=== PATIENT | male | born 1940 | race Caucasian/White ===

== ENCOUNTER 2018-02-06 16:30 | Inpatient (IN) | payer OTHER ==
--- NOTE | 2018-02-06 16:59 | PDOC ---
History of Present Illness - General Chief Complaint: Urinary Problem Stated Complaint: WEAKNESS, URINARY SYMPTOMS Time Seen by Provider: 02/06/18 16:58 Past History - Past Medical History Allergies/Adverse Reactions: Allergies Allergy/AdvReac Type Severity Reaction Status Date / Time No Known Drug Allergies Allergy Verified 02/06/18 16:31 Home Medications: Ambulatory Orders Cyanocobalamin (Vitamin B-12) [B-12] 1,000 mcg PO DAILY tablet 05/21/16 Multivitamin [Daily Vitamin Formula] 1 each PO DAILY tablet 05/21/16 Meclizine HCl 25 mg PO PRN PRN MDD 4 05/25/16 Ascorbic Acid [Vitamin C -] 500 mg PO BID tablet 06/01/16 Sennosides/Docusate Sodium [Pericolace -] 2 tablet PO BID tablet 06/01/16 Aspirin [Aspirin Ec] 81 mg PO DAILY 12/31/16 Nifedipine [Procardia Xl] 30 mg PO DAILY 12/31/16 Clopidogrel Bisulfate [Plavix] 75 mg PO DAILY 02/06/18 Diclofenac Sodium/Misoprostol [Diclofenac-Misoprost 75-0.2 Tb] 1 each PO BID Metoprolol Succinate 25 mg PO BID 02/06/18 Anemia: No Asthma: No Cancer: No Cardiac Disorders: No CVA: No COPD: No CHF: No Dementia: No Diabetes: No GI Disorders: Yes (RECTAL BLEEDING 2012) Disorders: Yes (multiple stones) HTN: Yes Hypercholesterolemia: Yes Kidney Stones: Yes Liver Disease: No Seizures: No Thyroid Disease: No - Surgical History Abdominal Surgery: Yes (HERNIA REPAIR 25 YRS AGO) Appendectomy: No Cardiac Surgery: Yes (2016 X2 STENT) Cholecystectomy: No Lung Surgery: No Neurologic Surgery: No Orthopedic Surgery: Yes (KYPHOPLASTY) - Suicide/Smoking/Psychosocial Hx Smoking Status: No Smoking History: Never smoked Have you smoked in the past 12 months: No Number of Cigarettes Smoked Daily: 0 Information on smoking cessation initiated: No Hx Alcohol Use: No Drug/Substance Use Hx: No Substance Use Type: None Hx Substance Use Treatment: No *Physical Exam - Vital Signs Last Vital Signs Temp Pulse Resp BP Pulse Ox 99.1 F 103 H 20 153/86 97 02/06/18 16:31 02/06/18 16:31 02/06/18 16:31 02/06/18 16:31 02/06/18 16:31
--- NOTE | 2018-02-06 17:25 | PDOC ---
History of Present Illness - General History Source: Patient, Spouse Exam Limitations: No Limitations - History of Present Illness Initial Comments: 02/06/18 18:28 The patient is a 77-year-old male with significant past medical history of BPH, hypertension, hyperlipidemia, hypercholesterolemia, kidney stones, urosepsis, who presents to the emergency department today BIBA complaining of 1 day of urinary changes and general weakness. The patient reports that since 9:00 pm last night, he felt feverish, fatigued, nauseous, and diaphoretic. He states that he woke up every hour last night with the urge to urinate and was not able to. As per the patient's , there is a new pelvic odor as well. The patient adds that with positional change, he experiences a sharp, non-radiating, right- sided back pain that is 3/10 in severity and alleviated by laying supine. Today the patient called his PCP who recommended ruling out UTI and prescribed Cipro ( first dose taken this morning). Denies burning with urination, hematuria. Denies vomiting, diarrhea, constipation. Denies headache, dizziness. Denies shortness of breath, back pain, abdominal pain, chest pain. Allergies: NKDA Social history: none reported Surgical history: hernia repair, nephrectomy, kyphoplasty, partial right spine, stents x2 Family history: none reported PCP: Dr. Lange <Delphine Wick - Last Filed: 02/06/18 19:33> <Denilson Michaud - Last Filed: 02/07/18 14:14> - General Chief Complaint: Urinary Problem Stated Complaint: WEAKNESS, URINARY SYMPTOMS Time Seen by Provider: 02/06/18 16:58 Past History <Delphine Wick - Last Filed: 02/06/18 19:33> - Past Medical History Anemia: No Asthma: No Cancer: No Cardiac Disorders: No CVA: No COPD: No CHF: No Dementia: No Diabetes: No GI Disorders: Yes (RECTAL BLEEDING 2012) Disorders: Yes (multiple stones) HTN: Yes Hypercholesterolemia: Yes Kidney Stones: Yes Liver Disease: No Seizures: No Thyroid Disease: No - Surgical History Abdominal Surgery: Yes (HERNIA REPAIR 25 YRS AGO) Appendectomy: No Cardiac Surgery: Yes (2017 X2 STENT) Cholecystectomy: No Lung Surgery: No Neurologic Surgery: No Orthopedic Surgery: Yes (KYPHOPLASTY) - Suicide/Smoking/Psychosocial Hx Smoking Status: No Smoking History: Never smoked Have you smoked in the past 12 months: No Number of Cigarettes Smoked Daily: 0 Information on smoking cessation initiated: No Hx Alcohol Use: No Drug/Substance Use Hx: No Substance Use Type: None Hx Substance Use Treatment: No <Denilson Michaud - Last Filed: 02/07/18 14:14> - Past Medical History Allergies/Adverse Reactions: Allergies Allergy/AdvReac Type Severity Reaction Status Date / Time No Known Drug Allergies Allergy Verified 02/06/18 16:31 Home Medications: Ambulatory Orders Cyanocobalamin (Vitamin B-12) [B-12] 1,000 mcg PO DAILY tablet 05/21/16 Multivitamin [Daily Vitamin Formula] 1 each PO DAILY tablet 05/21/16 Meclizine HCl 25 mg PO PRN PRN MDD 4 05/25/16 Ascorbic Acid [Vitamin C -] 500 mg PO BID tablet 06/01/16 Sennosides/Docusate Sodium [Pericolace -] 2 tablet PO BID tablet 06/01/16 Aspirin [Aspirin Ec] 81 mg PO DAILY 12/31/16 Nifedipine [Procardia Xl] 30 mg PO DAILY 12/31/16 Clopidogrel Bisulfate [Plavix] 75 mg PO DAILY 02/06/18 Diclofenac Sodium/Misoprostol [Diclofenac-Misoprost 75-0.2 Tb] 1 each PO BID Metoprolol Succinate 25 mg PO BID 02/06/18 Review of Systems - Review of Systems Able to Perform ROS?: Yes Comments:: 02/06/18 18:45 ROS: A complete review of 10 out of 10 review of systems is taken and is negative apart from what is previously mentioned below and in the HPI. <Delphine Wick - Last Filed: 02/06/18 19:33> *Physical Exam - Vital Signs Last Vital Signs Temp Pulse Resp BP Pulse Ox 99.1 F 103 H 20 153/86 97 02/06/18 16:31 02/06/18 16:31 02/06/18 16:31 02/06/18 16:31 02/06/18 16:31 - Physical Exam Comments: 02/06/18 17:42 Vitals: Triage vital signs reviewed General Appearance: No acute distress, well nourished, well developed Head: Atraumatic Neck: Supple. No nuchal rigidity Chest Wall: Nontender Cardiac: Regular rate and rhythm, no murmurs, no rubs, no gallops Lungs: Clear to auscultation bilateral, good air movement bilaterally Abdomen: Soft, nondistended, normal bowel sounds, nontender to palpation. No CVA tenderness. Rectal: Exam deferred Extremities: Full range of motion to all extremities, no cyanosis, clubbing, or edema Skin: Warm and dry, no rashes or lesions, no rash, no petechiae Psych: Normal mood, normal affect <Delphine Wick - Last Filed: 02/06/18 19:33> - Vital Signs Last Vital Signs Temp Pulse Resp BP Pulse Ox 99.1 F 103 H 20 153/86 97 02/06/18 16:31 02/06/18 16:31 02/06/18 16:31 02/06/18 16:31 02/06/18 16:31 <Denilson Michaud - Last Filed: 02/07/18 14:14> ED Treatment Course - LABORATORY CBC & Chemistry Diagram: 02/06/18 17:40 02/06/18 17:40 <Delphien Wick - Last Filed: 02/06/18 19:33> - LABORATORY CBC & Chemistry Diagram: 02/07/18 08:00 02/07/18 08:00 <Denilson Michaud - Last Filed: 02/07/18 14:14> Medical Decision Making - Medical Decision Making 02/06/18 17:44 Plan: -UA <Delphine Wick - Last Filed: 02/06/18 19:33> - Medical Decision Making The patient is a 77-year-old male with significant past medical history of BPH, hypertension, hyperlipidemia, kidney stones, urosepsis, who presents to the emergency department today complaining of 1 day of urinary changes and general weakness. The patient reports that since 9:00 pm last night, he felt feverish, fatigued, nauseous, and diaphoretic. He states that he woke up every hour last night with the urge to urinate and was not able to. As per the patient's , there is a new pelvic odor as well. The patient adds that with positional change , he experiences a sharp, non-radiating, right-sided back pain that is 3/10 in severity and alleviated by laying supine. Today the patient called his PCP who recommended ruling out UTI and prescribed Cipro (first dose taken this morning) . In the emergency department patient noted to have fever slight tachycardia but normotensive. Lactic acid normal. At this point history examination most consistent with UTI A CAT scan was performed to rule out infected stone there is no obstructing stone on CT patient does have bilateral hydronephrosis At this point patient has been ordered for broad-spectrum IV antibiotic coverage , catherization will be performed for his urine sample. He will be admitted to the hospitalist for likely urosepsis Urology has been consult. <Denilson Michaud - Last Filed: 02/07/18 14:14> *DC/Admit/Observation/Transfer - Attestations Scribe Attestion: 02/06/18 17:44 Documentation prepared by Delphine Wick, acting as medical laboratory technician for Denilson Michaud MD. <Delphine Wick - Last Filed: 02/06/18 19:33> - Discharge Dispostion Decision to Admit order: Yes <Denilson Michaud - Last Filed: 02/07/18 14:14> Diagnosis at time of Disposition: Sepsis, UTI (urinary tract infection) Fever Qualifiers: Fever type: unspecified Qualified Code(s): R50.9 - Fever, unspecified - Discharge Dispostion Condition at time of disposition: Stable
[2018-02-06] MEDS ORDERED: SODIUM CHLORIDE 0.9% 1000 ML INFUS.BAG IV ONE (17:31)
[2018-02-06] MEDS ORDERED: ACETAMINOPHEN 1000 MG/100 ML VIAL (NON FORMULARY) IVPB ONE (17:50)
[2018-02-06 17:56] LABS: HEMATOCRIT 43.7 % (35.4-49); HEMOGLOBIN 14.6 GM/dl (11.7-16.9); MCH 30.6 pg (25.7-33.7); MCHC 33.3 g/dl (32.0-35.9); MEAN CELL VOLUME 91.8 fl (80-96); MEAN PLT VOLUME 8.3 fl (7.5-11.1); PLATELET COUNT 235 K/MM3 (134-434); RBC 4.76 M/mm3 (4.00-5.60); RDW 13.1 % (11.9-15.9); WHITE BLOOD COUNT 23.3 K/mm3 (4.0-10.8)
[2018-02-06] MEDS ORDERED: PIPERACILLIN/TAZOB 3.375 GM 3.375 GM in DEXTROSE 5%-WATER - 50 ML IVPB ONE (18:09)
[2018-02-06 18:14] LABS: ALBUMIN 3.8 g/dl (3.5-5.0); ALK PHOS 94 U/L (32-92); ANION GAP 7 (8-16); BLOOD UREA NITROGEN 27 mg/dl (7-18); CALCIUM 9.1 mg/dl (8.4-10.2); CHLORIDE 109 mmol/L (98-107); CO2 23 mmol/L (22-28); CREATININE 1.4 mg/dl (0.6-1.3); GLUCOSE,RANDOM 122 mg/dl (74-106); POTASSIUM 4.2 mmol/L (3.5-5.1); SGOT/AST 21 U/L (10-42); SGPT/ALT 18 U/L (10-40); SODIUM 139 mmol/L (136-145); TOT PROT 7.2 g/dl (6.4-8.3)
[2018-02-06] MEDS ORDERED: ACETAMINOPHEN INJECTION 100 ML IVPB ONE (18:21)
[2018-02-06] MEDS ORDERED: PIPERACILLIN/TAZOBACTAM 3.375 GM VIAL IVPB ONE (18:21)
[2018-02-06 18:42] LABS: PROTHROMBIN TIME (PATIENT) 14.2 SEC (10.2-13.0)
[2018-02-06 18:43] LABS: ACTIVATED PTT 28.9 SECONDS (25.2-36.5); INR 1.27 (0.82-1.09)
[2018-02-06 19:10] LABS: PLATELET ESTIMATE ADEQUATE
[2018-02-06 19:38] LABS: PH,URINE 5.5 (4.5-8); URINE BILIRUBIN Negative (NEGATIVE); URINE COLOR Yellow; URINE GLUCOSE (UA) Negative (NEGATIVE); URINE KETONE 1+ (NEGATIVE); URINE NITRITE Negative (NEGATIVE); URINE UROBILINOGEN 0.2 (0.2-1.0)
[2018-02-06 19:40] LABS: URINE APPEARANCE CLOUDY; URINE LEUK ESTERASE 3+ (NEGATIVE); URINE PROTEIN 2+ (NEGATIVE)
--- NOTE | 2018-02-06 19:46 | PDOC ---
*Physical Exam - Vital Signs Last Vital Signs Temp Pulse Resp BP Pulse Ox 99.2 F 100 H 18 146/82 99 02/06/18 19:23 02/06/18 19:23 02/06/18 19:23 02/06/18 19:23 02/06/18 19:23 ED Treatment Course - LABORATORY CBC & Chemistry Diagram: 02/06/18 17:40 02/06/18 17:40 - ADDITIONAL ORDERS Additional order review: Laboratory Results 02/06/18 02/06/18 02/06/18 19:15 17:40 17:40 PT with INR INR PTT (Actin FS) Sodium Potassium Chloride Carbon Dioxide Anion Gap BUN Creatinine Creat Clearance w eGFR Random Glucose Lactic Acid 1.7 Calcium Total Bilirubin AST ALT Alkaline Phosphatase Troponin I < 0.03 Total Protein Albumin Urine Color Yellow Urine Appearance Cloudy Urine pH 5.5 Ur Specific [place] 1.020 Urine Protein 2+ H Urine Glucose (UA) Negative Urine Ketones 1+ H Urine Blood 2+ H Urine Nitrite Negative Urine Bilirubin Negative Urine Urobilinogen 0.2 Ur Leukocyte Esterase 3+ H 02/06/18 02/06/18 17:40 17:40 PT with INR 14.2 H INR 1.27 H PTT (Actin FS) 28.9 Sodium 139 Potassium 4.2 Chloride 109 H Carbon Dioxide 23 Anion Gap 7 L BUN 27 H Creatinine 1.4 H Creat Clearance w eGFR 49.27 Random Glucose 122 H D Lactic Acid Calcium 9.1 Total Bilirubin 1.0 AST 21 ALT 18 Alkaline Phosphatase 94 H Troponin I Total Protein 7.2 Albumin 3.8 Urine Color Urine Appearance Urine pH Ur Specific [place] Urine Protein Urine Glucose (UA) Urine Ketones Urine Blood Urine Nitrite Urine Bilirubin Urine Urobilinogen Ur Leukocyte Esterase 02/06/18 17:40 RBC 4.76 MCV 91.8 MCHC 33.3 RDW 13.1 MPV 8.3 D Neutrophils % No Result Required. Lymphocytes % No Result Required. - Medications Given in the ED: ED Medications Discontinued Medications Generic Name Dose Route Start Last Admin Trade Name Freq PRN Reason Stop Dose Admin Acetaminophen 1,000 mg 02/06/18 17:50 02/06/18 18:23 Ofirmev Injection - IVPB 02/06/18 17:51 1,000 mg ONCE ONE Administration Piperacillin Sod/Tazobactam 50 mls @ 100 mls/hr 02/06/18 18:09 02/06/18 18:43 Sod 3.375 gm/ Dextrose IVPB 02/06/18 18:38 100 mls/hr ONCE ONE Administration Protocol Sodium Chloride 1,000 ml 02/06/18 17:31 02/06/18 18:23 Normal Saline - IV 02/06/18 17:32 1,000 ml ONCE ONE Administration *DC/Admit/Observation/Transfer Diagnosis at time of Disposition: Fever Qualifiers: Fever type: unspecified Qualified Code(s): R50.9 - Fever, unspecified Sepsis Qualifiers: Sepsis type: sepsis due to unspecified organism Qualified Code(s): A41.9 - Sepsis, unspecified organism UTI (urinary tract infection) Qualifiers: Urinary tract infection type: site unspecified Hematuria presence: without hematuria Qualified Code(s): N39.0 - Urinary tract infection, site not specified - Discharge Dispostion Condition at time of disposition: Stable Decision to Admit order: Yes - Referrals - Patient Instructions - Post Discharge Activity
[2018-02-06 20:20] LABS: VENOUS PC02 35.1 mmHg (38-52); VENOUS PH 7.42 (7.32-7.42); VENOUS PO2 40.7 mmHg (28-48)
[2018-02-06] MEDS ORDERED: SODIUM CHLORIDE 1,000 ML IV SCH (20:30)
--- NOTE | 2018-02-06 20:30 | HP ---
CHIEF COMPLAINT: Malaise, Weakness and Dysuria PCP: Dr. Lange HISTORY OF PRESENT ILLNESS: This is a 77 y/o man with a PMHx of: HTN, HLD, CAD s/p stents x2, BPH, PVD. Who presents to the ED with his for generalized malaise, weakness and dysuria. Patient reports having UTI symptoms x1 day. Patient reports having subjective fever, was clammy. Patient denies cough, dizziness, SOB, CP, palpitations, AP, N /V/D. ER course was notable for: (1) Sepsis Criteria Met: T Max 101.5, WBC 23.3, BUN 27 (2) UTI: +3 leukocyte esterase, +2 blood (3) CTAP: bilateral hydronephrosis no obstruction Recent Travel: None PAST MEDICAL HISTORY: See HPI PAST SURGICAL HISTORY: Cardiac Stents x2 (2017) Bilateral Cataract Removal [facility]ot[facility]) Partial Turp Benign Granulomas removed (Back/Arm) Social History: Smoking: Never Alcohol: None Drugs: None Lives with spouse, Independent Family History: Non- contributory Allergies No Known Drug Allergies Allergy (Verified 02/06/18 16:31) HOME MEDICATIONS: Home Medications Medication Instructions Recorded Cyanocobalamin (Vitamin B-12) 1,000 mcg PO DAILY tablet 05/21/16 [B-12] Multivitamin [Daily Vitamin 1 each PO DAILY tablet 05/21/16 Formula] Meclizine HCl 25 mg PO PRN PRN MDD 4 05/25/16 Ascorbic Acid [Vitamin C -] 500 mg PO BID tablet 06/01/16 Sennosides/Docusate Sodium 2 tablet PO BID tablet 06/01/16 [Pericolace -] Aspirin [Aspirin Ec] 81 mg PO DAILY 12/31/16 Nifedipine [Procardia Xl] 30 mg PO DAILY 12/31/16 Clopidogrel Bisulfate [Plavix] 75 mg PO DAILY 02/06/18 Diclofenac Sodium/Misoprostol 1 each PO BID 02/06/18 [Diclofenac-Misoprost 75-0.2 Tb] Metoprolol Succinate 25 mg PO BID 02/06/18 REVIEW OF SYSTEMS CONSTITUTIONAL: fever, diaphoresis, generalized weakness, malaise Absent: chills, loss of appetite, weight change HEENT: Absent: rhinorrhea, nasal congestion, throat pain, throat swelling, difficulty swallowing, mouth swelling, ear pain, eye pain, visual changes CARDIOVASCULAR: Absent: chest pain, syncope, palpitations, irregular heart rate, lightheadedness , peripheral edema RESPIRATORY: Absent: cough, shortness of breath, dyspnea with exertion, orthopnea, wheezing, stridor, hemoptysis GASTROINTESTINAL: Absent: abdominal pain, abdominal distension, nausea, vomiting, diarrhea, constipation, melena, hematochezia GENITOURINARY: dysuria, frequency, urgency, hesitancy, flank pain Absent: hematuria, genital pain MUSCULOSKELETAL: Absent: myalgia, arthralgia, joint swelling, back pain, neck pain SKIN: Absent: rash, itching, pallor HEMATOLOGIC/IMMUNOLOGIC: Absent: easy bleeding, easy bruising, lymphadenopathy, frequent infections ENDOCRINE: Absent: unexplained weight gain, unexplained weight loss, heat intolerance, cold intolerance NEUROLOGIC: Absent: headache, focal weakness or paresthesias, dizziness, unsteady gait, seizure, mental status changes, bladder or bowel incontinence PSYCHIATRIC: Absent: anxiety, depression, suicidal or homicidal ideation, hallucinations. PHYSICAL EXAMINATION Vital Signs - 24 hr 02/06/18 02/06/18 02/06/18 16:31 17:31 19:23 Temperature 99.1 F 101.5 F H 99.2 F Pulse Rate 103 H Pulse Rate [ 100 H Right] Respiratory 20 18 Rate Blood Pressure 153/86 Blood Pressure 146/82 [Right Arm] O2 Sat by Pulse 97 99 Oximetry (%) GENERAL: Awake, alert, and fully oriented, in no acute distress. HEAD: Normal with no signs of trauma. EYES: Pupils equal, round and reactive to light, extraocular movements intact, sclera anicteric, conjunctiva clear. No lid lag. EARS, NOSE, THROAT: Ears normal, nares patent, oropharynx clear without exudates. Dry mucous membranes. NECK: Normal range of motion, supple without lymphadenopathy, JVD, or masses. LUNGS: Breath sounds equal, clear to auscultation bilaterally. No wheezes, and no crackles. No accessory muscle use. HEART: Regular rate and rhythm, normal S1 and S2 without murmur, rub or gallop. ABDOMEN: Obese, soft, nontender, not distended, normoactive bowel sounds, no guarding, no rebound, no masses. No hepatomegaly or splenomegaly. MUSCULOSKELETAL: Normal range of motion at all joints. No bony deformities or tenderness. No CVA tenderness. UPPER EXTREMITIES: 2+ pulses, warm, well-perfused. No cyanosis. No clubbing. No peripheral edema. LOWER EXTREMITIES: 2+ pulses, warm, well-perfused. No calf tenderness. No peripheral edema. NEUROLOGICAL: Cranial nerves II-XII intact. Normal speech. Gait not observed PSYCHIATRIC: Cooperative. Good eye contact. Appropriate mood and affect. SKIN: Warm, dry, normal turgor, no rashes or lesions noted, normal capillary refill. +B/L LE vascular changes Laboratory Results - last 24 hr 02/06/18 02/06/18 02/06/18 17:40 17:40 17:40 WBC 23.3 H RBC 4.76 Hgb 14.6 Hct 43.7 MCV 91.8 MCH 30.6 MCHC 33.3 RDW 13.1 Plt Count 235 MPV 8.3 D Absolute Neuts (auto) 19.0 Neutrophils % No Result Required. Neutrophils % (Manual) 89.0 H Band Neutrophils % 2.0 Lymphocytes % No Result Required. Lymphocytes % (Manual) 8.0 Monocytes % (Manual) 1 L Platelet Estimate Adequate PT with INR 14.2 H INR 1.27 H PTT (Actin FS) 28.9 VBG pH POC VBG pCO2 POC VBG pO2 Mixed VBG HCO3 Sodium 139 Potassium 4.2 Chloride 109 H Carbon Dioxide 23 Anion Gap 7 L BUN 27 H Creatinine 1.4 H Creat Clearance w eGFR 49.27 Random Glucose 122 H D Lactic Acid Calcium 9.1 Total Bilirubin 1.0 AST 21 ALT 18 Alkaline Phosphatase 94 H Troponin I Total Protein 7.2 Albumin 3.8 Urine Color Urine Appearance Urine pH Ur Specific [place] Urine Protein Urine Glucose (UA) Urine Ketones Urine Blood Urine Nitrite Urine Bilirubin Urine Urobilinogen Ur Leukocyte Esterase 02/06/18 02/06/18 02/06/18 17:40 17:40 18:43 WBC RBC Hgb Hct MCV MCH MCHC RDW Plt Count MPV Absolute Neuts (auto) Neutrophils % Neutrophils % (Manual) Band Neutrophils % Lymphocytes % Lymphocytes % (Manual) Monocytes % (Manual) Platelet Estimate PT with INR INR PTT (Actin FS) VBG pH 7.42 POC VBG pCO2 35.1 L POC VBG pO2 40.7 Mixed VBG HCO3 22.5 Sodium Potassium Chloride Carbon Dioxide Anion Gap BUN Creatinine Creat Clearance w eGFR Random Glucose Lactic Acid 1.7 Calcium Total Bilirubin AST ALT Alkaline Phosphatase Troponin I < 0.03 Total Protein Albumin Urine Color Urine Appearance Urine pH Ur Specific [place] Urine Protein Urine Glucose (UA) Urine Ketones Urine Blood Urine Nitrite Urine Bilirubin Urine Urobilinogen Ur Leukocyte Esterase 02/06/18 19:15 WBC RBC Hgb Hct MCV MCH MCHC RDW Plt Count MPV Absolute Neuts (auto) Neutrophils % Neutrophils % (Manual) Band Neutrophils % Lymphocytes % Lymphocytes % (Manual) Monocytes % (Manual) Platelet Estimate PT with INR INR PTT (Actin FS) VBG pH POC VBG pCO2 POC VBG pO2 Mixed VBG HCO3 Sodium Potassium Chloride Carbon Dioxide Anion Gap BUN Creatinine Creat Clearance w eGFR Random Glucose Lactic Acid Calcium Total Bilirubin AST ALT Alkaline Phosphatase Troponin I Total Protein Albumin Urine Color Yellow Urine Appearance Cloudy Urine pH 5.5 Ur Specific [place] 1.020 Urine Protein 2+ H Urine Glucose (UA) Negative Urine Ketones 1+ H Urine Blood 2+ H Urine Nitrite Negative Urine Bilirubin Negative Urine Urobilinogen 0.2 Ur Leukocyte Esterase 3+ H ASSESSMENT/PLAN: This is a 77 y/o man with a PMHx of: HTN, HLD, CAD s/p stents x2, BPH. Placed in Observation for Sepsis secondary to UTI for further evaluation of their emergent condition. Plan: ID: Sepsis - Likely secondary to UTI - hx Vr Ec Faecium - Sepsis Criteria Met- T max 101.5, WBC 23.3, BUN 27 - UA +3 leukocyte esterase, +2 blood - Urine culture-pending - Zosyn given in ED, will continue - Appreciate ID consult - Continue IVF - Tylenol prn - CBC, BMP in am - Monitor vitals Urology: UTI//BPH - See above - CTAP- showed B/L hydronephrosis without obstruction - Appreciate Urology consult - Continue home meds - INOs Cardio: HTN//HLD//CAD - stable - s/p Stents - Monitor BP - Continue home meds with parameters - Monitor renal function, LFTs FEN - D51/2Ns@42CC/HR - Replete lytes prn - Low Na Diet DVT ppx - OOB - SCDs -TEDs - Consider ACs if LOS > 48hrs Code Status: Full Code Dispo: Observation Problem List - Problem (1) Sepsis Code(s): A41.9 - SEPSIS, UNSPECIFIED ORGANISM Qualifiers: Sepsis type: sepsis due to unspecified organism Qualified Code(s): A41.9 - Sepsis, unspecified organism (2) Fever Code(s): R50.9 - FEVER, UNSPECIFIED Qualifiers: Fever type: unspecified Qualified Code(s): R50.9 - Fever, unspecified (3) UTI (urinary tract infection) Code(s): N39.0 - URINARY TRACT INFECTION, SITE NOT SPECIFIED Qualifiers: Urinary tract infection type: site unspecified Hematuria presence: without hematuria Qualified Code(s): N39.0 - Urinary tract infection, site not specified (4) CAD (coronary artery disease) Code(s): I25.10 - ATHSCL HEART DISEASE OF [place] CORONARY ARTERY W/O ANG PCTRS (5) HTN (hypertension) Code(s): I10 - ESSENTIAL (PRIMARY) HYPERTENSION (6) HLD (hyperlipidemia) Code(s): E78.5 - HYPERLIPIDEMIA, UNSPECIFIED (7) BPH (benign prostatic hyperplasia) Code(s): N40.0 - BENIGN PROSTATIC HYPERPLASIA WITHOUT LOWER URINRY TRACT SYMP Visit type - Emergency Visit Emergency Visit: Yes ED Registration Date: 02/06/18 Care time: The patient presented to the Emergency Department on the above date and was hospitalized for further evaluation of their emergent condition. - New Patient This patient is new to me today: Yes Date on this admission: 02/06/18 - Critical Care Critical Care patient: No Hospitalist Screening - Colonoscopy Questionnaire Colonoscopy Questionnaire: Colonoscopy Questionnaire - Patient: 50 - 75 years old and never had a screening colonoscopy: Unknown History of colon or rectal polyps, or CA: Unknown History of IBD, Crohn's disease or UC: Unknown History of abdominal radiation therapy as a child: Unknown - Relative: 1 with colon or rectal CA, or polyps at age 60 or younger: Unknown Colon or rectal CA diagnosed at age 45 or younger: Unknown Multiple relatives with colon or rectal CA: Unknown - Outcome: Screening Result: Negative Screen
[2018-02-06] MEDS ORDERED: ACETAMINOPHEN 325 MG TABLET (FP) PO PRN (20:34)
[2018-02-06 20:51] VITALS: BMI 32.4
[2018-02-06 21:27] LABS: URINE WBC 40-60 (0-2)
[2018-02-06 21:28] LABS: URINE BACTERIA MODERATE /hpf (NEGATIVE)
[2018-02-06] MEDS ORDERED: MECLIZINE HCL 25 MG TABLET (FP) PO PRN (21:51)
[2018-02-06] MEDS ORDERED: PATIENT'S OWN MEDICATION (NON-FORMULARY) (Diclofenac Sodium/Misoprostol [Diclofenac-Misopr PO SCH (22:00)
[2018-02-06] MEDS ORDERED: ATORVASTATIN CA 40 MG TABLET (FP) PO SCH (22:00)
[2018-02-06] MEDS: metoPROLOL SUCCINATE 25 MG TAB.SR.24H (FP) PO SCH (22:47)
[2018-02-06] MEDS: ASCORBIC ACID 500 MG TABLET (FP) PO SCH (22:49)
[2018-02-07] MEDS: PIPERACILLIN/TAZOB 3.375 GM 3.375 GM in DEXTROSE 5%-WATER - 50 ML IVPB SCH ×2 (06:12→19:57)
[2018-02-07 08:26] LABS: ANION GAP 2 (8-16); BLOOD UREA NITROGEN 23 mg/dl (7-18); CALCIUM 8.3 mg/dl (8.4-10.2); CHLORIDE 112 mmol/L (98-107); CO2 22 mmol/L (22-28); CREATININE 1.2 mg/dl (0.6-1.3); GLUCOSE,RANDOM 114 mg/dl (74-106); POTASSIUM 3.7 mmol/L (3.5-5.1); SODIUM 136 mmol/L (136-145)
[2018-02-07 08:32] LABS: BASO % 0.3 % (0-2.0); EOS % 0.1 % (0-4.5); HEMATOCRIT 36.4 % (35.4-49); HEMOGLOBIN 12.4 GM/dl (11.7-16.9); LYMPH % 6.6 % (8-40); MCHC 34.1 g/dl (32.0-35.9); MEAN CELL VOLUME 90.8 fl (80-96); MEAN PLT VOLUME 9.2 fl (7.5-11.1); MONO % 9.3 % (3.8-10.2); NEUT % 83.7 % (42.8-82.8); PLATELET COUNT 205 K/MM3 (134-434); RDW 13.4 % (11.9-15.9); WHITE BLOOD COUNT 17.9 K/mm3 (4.0-10.8)
[2018-02-07] MEDS: TAMSULOSIN HCL 0.4 MG CAP.ER.24H (FP) PO SCH (08:45)
[2018-02-07] MEDS: DUTASTERIDE 0.5 MG CAP (FP) PO SCH (09:00)
--- NOTE | 2018-02-07 09:37 | PN ---
Progress Note (short form) - Note Progress Note: ID Consult dictated UTI/ Sepsis secondary to UTI Streptococcal bacteremia Marked leukocytosis Hx VRE Nephrolithiasis R HN ? obstructive uropathy Pending sepsis workup empiric daptomycin @ 6mg/kg q24h ( prior hx VRE ) Urology evaluation
--- NOTE | 2018-02-07 09:58 | PN ---
Physical Exam: SUBJECTIVE: Patient seen and examined, reports feeling tired, is any chest pain or shortness of breath denies any tactile fevers, at bedside OBJECTIVE: patient is a 77 y/o man with a PMHx of: HTN, HLD, CAD s/p stents x2 , BPH, and PVD. Patient was admitted from the [facility] department for sepsis secondary to bacteremia. Vital Signs Period Temp Pulse Resp BP Sys/Reis Pulse Ox Last 24 Hr 98.5 F-101.5 F 85-103 18-20 146-165/56-86 97-99 GENERAL: The patient is awake, alert, and fully oriented, in no acute distress. HEAD: Normal with no signs of trauma. EYES: PERRL, extraocular movements intact, sclera anicteric, conjunctiva clear. No ptosis. ENT: Ears normal, nares patent, oropharynx clear without exudates, moist mucous membranes. NECK: Trachea midline, full range of motion, supple. LUNGS: Breath sounds equal, clear to auscultation bilaterally, no wheezes, no crackles, no accessory muscle use. HEART: Regular rate and rhythm, S1, S2 without murmur, rub or gallop. ABDOMEN: Soft, nontender, nondistended, normoactive bowel sounds, no guarding, no rebound, no hepatosplenomegaly, no masses. EXTREMITIES: 2+ pulses, warm, well-perfused, no edema. NEUROLOGICAL: Cranial nerves II through XII grossly intact. Normal speech, gait not observed. PSYCH: Normal mood, normal affect. SKIN: Warm, dry, normal turgor, no rashes or lesions noted Laboratory Results - last 24 hr 02/06/18 02/06/18 02/06/18 17:40 17:40 17:40 WBC 23.3 H RBC 4.76 Hgb 14.6 Hct 43.7 MCV 91.8 MCH 30.6 MCHC 33.3 RDW 13.1 Plt Count 235 MPV 8.3 D Absolute Neuts (auto) 19.0 Neutrophils % No Result Required. Neutrophils % (Manual) 89.0 H Band Neutrophils % 2.0 Lymphocytes % No Result Required. Lymphocytes % (Manual) 8.0 Monocytes % Monocytes % (Manual) 1 L Eosinophils % Basophils % Platelet Estimate Adequate PT with INR 14.2 H INR 1.27 H PTT (Actin FS) 28.9 VBG pH POC VBG pCO2 POC VBG pO2 Mixed VBG HCO3 Sodium 139 Potassium 4.2 Chloride 109 H Carbon Dioxide 23 Anion Gap 7 L BUN 27 H Creatinine 1.4 H Creat Clearance w eGFR 49.27 Random Glucose 122 H D Lactic Acid Calcium 9.1 Total Bilirubin 1.0 AST 21 ALT 18 Alkaline Phosphatase 94 H Troponin I Total Protein 7.2 Albumin 3.8 Urine Color Urine Appearance Urine pH Ur Specific [place]ign[place] Urine Protein Urine Glucose (UA) Urine Ketones Urine Blood Urine Nitrite Urine Bilirubin Urine Urobilinogen Ur Leukocyte Esterase Urine RBC Urine WBC Urine Bacteria 02/06/18 02/06/18 02/06/18 17:40 17:40 18:43 WBC RBC Hgb Hct MCV MCH MCHC RDW Plt Count MPV Absolute Neuts (auto) Neutrophils % Neutrophils % (Manual) Band Neutrophils % Lymphocytes % Lymphocytes % (Manual) Monocytes % Monocytes % (Manual) Eosinophils % Basophils % Platelet Estimate PT with INR INR PTT (Actin FS) VBG pH 7.42 POC VBG pCO2 35.1 L POC VBG pO2 40.7 Mixed VBG HCO3 22.5 Sodium Potassium Chloride Carbon Dioxide Anion Gap BUN Creatinine Creat Clearance w eGFR Random Glucose Lactic Acid 1.7 Calcium Total Bilirubin AST ALT Alkaline Phosphatase Troponin I < 0.03 Total Protein Albumin Urine Color Urine Appearance Urine pH Ur Specific [place] Urine Protein Urine Glucose (UA) Urine Ketones Urine Blood Urine Nitrite Urine Bilirubin Urine Urobilinogen Ur Leukocyte Esterase Urine RBC Urine WBC Urine Bacteria 02/06/18 02/07/18 02/07/18 19:15 08:00 08:00 WBC 17.9 H RBC 4.00 Hgb 12.4 Hct 36.4 D MCV 90.8 MCH 31.0 MCHC 34.1 RDW 13.4 Plt Count 205 MPV 9.2 D Absolute Neuts (auto) 14.9 Neutrophils % 83.7 H D Neutrophils % (Manual) Band Neutrophils % Lymphocytes % 6.6 L D Lymphocytes % (Manual) Monocytes % 9.3 Monocytes % (Manual) Eosinophils % 0.1 D Basophils % 0.3 Platelet Estimate PT with INR INR PTT (Actin FS) VBG pH POC VBG pCO2 POC VBG pO2 Mixed VBG HCO3 Sodium 136 Potassium 3.7 Chloride 112 H Carbon Dioxide 22 Anion Gap 2 L BUN 23 H Creatinine 1.2 Creat Clearance w eGFR 58.86 Random Glucose 114 H Lactic Acid Calcium 8.3 L Total Bilirubin AST ALT Alkaline Phosphatase Troponin I Total Protein Albumin Urine Color Yellow Urine Appearance Cloudy Urine pH 5.5 Ur Specific [place] 1.020 Urine Protein 2+ H Urine Glucose (UA) Negative Urine Ketones 1+ H Urine Blood 2+ H Urine Nitrite Negative Urine Bilirubin Negative Urine Urobilinogen 0.2 Ur Leukocyte Esterase 3+ H Urine RBC 2-5 Urine WBC 40-60 Urine Bacteria Moderate Active Medications Generic Name Dose Route Start Last Admin Trade Name Freq PRN Reason Stop Dose Admin Acetaminophen 650 mg 02/06/18 20:34 Tylenol - PO Q6H PRN FEVER Ascorbic Acid 500 mg 02/06/18 22:00 02/06/18 22:49 Vitamin C - PO 500 mg BID [facility] Administration Aspirin 81 mg 02/07/18 10:00 Ecotrin - PO DAILY [facility] Atorvastatin Calcium 40 mg 02/06/18 22:00 02/06/18 22:47 Lipitor - PO 40 mg HS [facility] Administration Clopidogrel Bisulfate 75 mg 02/07/18 10:00 Plavix - PO DAILY [facility] Cyanocobalamin 1,000 mcg 02/07/18 10:00 Vitamin B12 - PO DAILY [facility] Dutasteride 0.5 mg 02/07/18 08:30 Avodart - PO DAILY@0830 [facility] Sodium Chloride 1,000 mls @ 42 mls/hr 02/06/18 20:30 02/06/18 20:37 Normal Saline - IV 42 mls/hr ASDIR [facility] Administration Piperacillin Sod/Tazobactam 50 mls @ 100 mls/hr 02/07/18 05:30 02/07/18 06:12 Sod 3.375 gm/ Dextrose IVPB 100 mls/hr Q8H-IV [facility] Administration Protocol Piperacillin Sod/Tazobactam Sod 3.375 gm in 50 mls @ 100 mls/hr 02/07/18 10: 00 Zosyn 3.375gm Ivpb (Pre-Docked) IVPB 02/07/18 10:29 1000 ONE Protocol Piperacillin Sod/Tazobactam 50 mls @ 100 mls/hr 02/07/18 12:00 Sod 3.375 gm/ Dextrose IVPB 02/07/18 18:29 Q8H-IV [facility] Meclizine HCl 25 mg 02/06/18 21:51 Antivert - PO PRN PRN dizziness Metoprolol Succinate 25 mg 02/06/18 22:00 02/06/18 22:47 Toprol Xl - PO 25 mg BID [facility] Administration Multivitamins/Minerals/Vitamin C 1 tab 02/07/18 10:00 Tab-A-Vit - PO DAILY [facility] Nifedipine 30 mg 02/07/18 10:00 Procardia Xl - PO DAILY [facility] Non-Formulary Medication 1 each 02/06/18 22:00 02/06/18 22:46 Diclofenac Sodium/Misoprostol [Diclofenac-Misoprost 75-0.2 Tb] PO Not Given BID [facility] Pantoprazole Sodium 40 mg 02/07/18 10:00 Protonix - PO DAILY [facility] Tamsulosin HCl 0.4 mg 02/07/18 08:30 Flomax - PO DAILY@0830 [facility] Microbiology 02/06/18 18:43 Blood - Peripheral Venous Blood Culture - Preliminary Pending Organism 02/06/18 17:40 Blood - Peripheral Venous Blood Culture - Preliminary Pending Organism ASSESSMENT/PLAN: 1) ID: Sepsis bacteremia uti - both sets of blood cultures preliminary gram-positive awaiting final - start cubicin as per ID Dr Mckeon - leucytosis trending downward, tmax 101.5 - pending urine culture - stat echo ordered - Dr. Mckeon ID consulted and following 2) UTI//BPH - CTAP- showed B/L hydronephrosis without obstruction - Appreciate Urology consult - INOs 3) Cardio: HTN//HLD//CAD - stable - s/p Stents - Monitor BP - Continue home meds with parameters - will hold statin while patient is receiving Cubicin, Monitor renal function, LFTs FEN - Replete lytes prn - Low Na Diet DVT ppx - OOB - SCDs -TEDs - heparin sq Code Status: Full Code Dispo: requires inpatient admission
[2018-02-07] MEDS ORDERED: PIPERACILLIN/TAZOB 3.375 GM 3.375 GM/50 ML BAG IVPB ONE (10:00)
[2018-02-07] MEDS ORDERED: PATIENT'S OWN MEDICATION (NON-FORMULARY) (Dutasteride/Tamsulosin Hcl [Jalyn 0.5-0.4 Mg Cap PO SCH (10:00)
[2018-02-07] MEDS: MULTIVITAMINS (DAILY MVI) TABLET (FP) PO SCH (10:05)
[2018-02-07] MEDS: NIFEdipine E.R. 30 MG TABLET (FP) PO SCH (10:05)
[2018-02-07] MEDS: metoPROLOL SUCCINATE 25 MG TAB.SR.24H (FP) PO SCH ×2 (10:05→21:35)
[2018-02-07] MEDS: CYANOCOBALAMIN 1,000 MCG TABLET (FP) PO SCH (10:05)
[2018-02-07] MEDS: PANTOPRAZOLE 40 MG TABLET (FP) PO SCH (10:05)
[2018-02-07] MEDS: CLOPIDOGREL BISULFATE 75 MG TABLET (FP) PO SCH (10:05)
[2018-02-07] MEDS: ASCORBIC ACID 500 MG TABLET (FP) PO SCH ×2 (10:06→21:35)
[2018-02-07] MEDS: ASPIRIN COATED 81 MG TABLET.EC PO SCH (10:06)
[2018-02-07] MEDS ORDERED: CEFTRIAXONE 2 GM/100 ML BAG IVPB SCH (10:30)
[2018-02-07] MEDS ORDERED: VANCOMYCIN 1 GRAM (PRE-DOCKED) 1,000 MG/250 ML BAG IVPB SCH (11:00)
[2018-02-07] MEDS ORDERED: PIPERACILLIN/TAZOB 3.375 GM 3.375 GM in DEXTROSE 5%-WATER - 50 ML IVPB SCH (12:00)
[2018-02-07] MEDS ORDERED: POTASSIUM CHLORIDE TABS 20 MEQ TABLET.ER (FP) PO ONE (13:00)
[2018-02-07] MEDS ORDERED: MAGNESIUM SULF 50% (8.12 MEQ/2 ML-1 GM VIAL) IVPB ONE (13:14)
[2018-02-07] MEDS: SODIUM CHLORIDE IVPB SCH (13:34)
[2018-02-07] MEDS: DAPTOMYCIN IVPB SCH (13:34)
--- NOTE | 2018-02-07 13:37 | CONS ---
INFECTIOUS DISEASE CONSULTATION DATE OF CONSULTATION: DATE OF DICTATION: 02/07/2018 The patient is a 77-year-old male evaluated for sepsis. He was admitted to the hospital on February 06, 2018, with complaints of generalized weakness, urinary frequency, urgency, nausea, diaphoresis, subjective fever, and back pain. According to the notes, he had been prescribed ciprofloxacin by his primary provider; of which, he took a dose. He presented to the emergency room where his white blood cell count was 23,000 with a left shift. Urinalysis showed 40-60 white cells. Blood cultures are now positive for gram-positive cocci in chains. At the present time, he is awake and alert. He has no focal complaint. He denies any recent hospitalizations. On review of his medical records, he has had urinary tract infections in the past including most recently VRE in 2016. CAT scan of the abdomen and pelvis shows bilateral nephrolithiasis with right hydronephrosis, bladder calculus, and an enlarged prostate. At the present time, he denies any dysuria or hematuria. PAST MEDICAL HISTORY: Positive for BPH, hypertension, hyperlipidemia, nephrolithiasis, coronary artery disease status post coronary artery stents x2, urinary tract infections in the past, and urosepsis. PAST SURGICAL HISTORY: Status post hernia repair, kyphoplasty, cataract surgery. ALLERGIES: No known allergies. MEDICATIONS: Vitamin B12, meclizine, Siomara-Colace, aspirin, Procardia, Plavix, diclofenac, metoprolol. SOCIAL HISTORY: Lives at home with his significant other. Nonsmoker, nondrinker. SYSTEMS REVIEW: Neurologic: No loss of consciousness, seizure activity, focal weakness. Cardiac: Negative chest pain or palpitations. Respiratory: Negative cough or sputum production. Gastrointestinal: Negative vomiting or diarrhea. Genitourinary: As per HPI. LABORATORY DATA: White count on admission 23,000 with left shift, presently 17.9; hematocrit 36.4; platelet count 205. BUN 23, creatinine 1.2. Urinalysis 40-60 white cells. Chest x-ray shows increased markings at the left base. CAT scan of the abdomen and pelvis as mentioned. PHYSICAL EXAMINATION: General: He is awake and alert. He is not acutely toxic appearing. Vital Signs: Temperature 98.5, T-max 101.5; blood pressure 151/56; pulse 85, regular; respirations 19 per minute. HEENT: Sclerae are anicteric. Heart: Sounds S1, S2. Lungs: Clear. Abdomen: Obese, soft, nontender. No suprapubic or flank tenderness. Extremities: Positive for edema. IMPRESSION: 1. Streptococcal bacteremia, likely urinary tract source. 2. Urinary tract infection, possible sepsis secondary to urinary tract infection. 3. Benign prostatic hypertrophy. 4. Nephrolithiasis. 5. Right hydronephrosis, possible obstructive uropathy. Await cultures. Empiric daptomycin 6 mg/kg IV piggyback daily in light of positive blood cultures for strep and prior history of VRE. Urology evaluation. Will follow. Thank you for the kind referral. BRANDON ABREU M.D. [id number]
--- NOTE | 2018-02-07 13:56 | EKG ---
Test Reason : Blood Pressure : / mmHG Vent. Rate : 076 BPM Atrial Rate : 076 BPM P-R Int : 242 ms QRS Dur : 100 ms QT Int : 424 ms P-R-T Axes : 023 -06 090 degrees QTc Int : 477 ms SINUS RHYTHM WITH 1ST DEGREE A-V BLOCK WITH BLOCKED PREMATURE ATRIAL COMPLEXES WITH FREQUENT PREMATURE VENTRICULAR COMPLEXES INCOMPLETE RIGHT BUNDLE BRANCH BLOCK INFERIOR INFARCT , AGE UNDETERMINED T WAVE ABNORMALITY, CONSIDER ANTERIOR ISCHEMIA ABNORMAL ECG Confirmed by Albert Alan MD ([id number]) on 02/07/2018 1:56:34 PM Referred By: MAURA LR Confirmed By:Albert Alan MD
[2018-02-07] MEDS ORDERED: MAGNESIUM 1GM/D5W - 1 GM/100 ML IVPB IVPB ONE (14:00)
--- NOTE | 2018-02-07 15:12 | ECHO ---
Name: LISS EPPS, Study Date: 02/07/2018 01:34 PM Age: 77 yrs Reason For Study: BACTEREMIA Height: 71 in Weight: 247 lb BSA IVSd 1.3cm Ao root diam3.5cm LVIDd 4.4cm LA dimension 3.5cm LVIDs 3.0cm LVPWd 1.1cm EDV(Osei) 89.1ml ESV(Osei) 34.5ml MV E max jermaine 69.0cm/sec MV dec slope MV A max jermaine 85.2cm/sec MV E/A 0.81 MR max jermaine 210.7cm/sec PI end-d jermaine 69.4cm /sec MR max PG 17.8mmHg
--- NOTE | 2018-02-07 17:51 | CON.GU ---
Consult Consult Specialty:: Referred by:: medicine Reason for Consultation:: UTI, BPH, kidney stones - History of Present Illness Chief Complaint: UTI, BPH, kidney stones History of Present Illness: 77 year old male with long history of kidney stones and BPH presents with a UTI. CT scan reveals non obstructive right hydronephrosis (from reflux secondary to bladder outlet obstruction) and bilateral nephrolithiasis and a bladder stone. He was started on antibtiotics and is starting to feel better. - History Source History Provided By: Patient, Medical Record Limitations to Obtaining History: No Limitations - Past Medical History PERSONAL INJURY LEGAL ASSISTANT: Yes: Vertigo, Other (ascending thoracic aneurysm) Cardio/Vascular: Yes: HTN Gastrointestinal: Yes: GERD Renal/: Yes: BPH, Neurogenic Bladder, Renal Calculi, UTI - Alcohol/Substance Use Hx Alcohol Use: No - Smoking History Smoking history: Never smoked Have you smoked in the past 12 months: No Aproximately how many cigarettes per day: 0 Home Medications - Allergies Allergies/Adverse Reactions: Allergies Allergy/AdvReac Type Severity Reaction Status Date / Time No Known Drug Allergies Allergy Verified 02/06/18 16:31 - Home Medications Home Medications: Ambulatory Orders Cyanocobalamin (Vitamin B-12) [B-12] 1,000 mcg PO DAILY tablet 05/21/16 Multivitamin [Daily Vitamin Formula] 1 each PO DAILY tablet 05/21/16 Meclizine HCl 25 mg PO PRN PRN MDD 4 05/25/16 Ascorbic Acid [Vitamin C -] 500 mg PO BID tablet 06/01/16 Sennosides/Docusate Sodium [Pericolace -] 2 tablet PO BID tablet 06/01/16 Aspirin [Aspirin Ec] 81 mg PO DAILY 12/31/16 Nifedipine [Procardia Xl] 30 mg PO DAILY 12/31/16 Clopidogrel Bisulfate [Plavix] 75 mg PO DAILY 02/06/18 Diclofenac Sodium/Misoprostol [Diclofenac-Misoprost 75-0.2 Tb] 1 each PO BID Metoprolol Succinate 25 mg PO BID 02/06/18 Review of Systems - Review of Systems Constitutional: reports: Fever Genitourinary: reports: Frequency. denies: Burning, Discharge, Flank Pain, Hematuria, Incontinence Physical Exam- Vital Signs: Vital Signs Temperature 98.0 F 02/07/18 14:00 Pulse Rate 74 07/24/18 14:00 Respiratory Rate 19 02/07/18 14:00 Blood Pressure 146/51 02/07/18 14:00 O2 Sat by Pulse Oximetry (%) 97 02/07/18 14:00 Constitutional: Yes: Well Nourished, No Distress, Calm Gastrointestinal: Yes: WNL, Normal Bowel Sounds, Abdomen, Obese Renal/: No: Bladder Distention, CVA Tenderness - Left, CVA Tenderness - Right , Calderon Present Labs: CBC, BMP 02/07/18 08:00 02/07/18 08:00 Imaging - Results Cat Scan: Report Reviewed Problem List - Problems (1) Neurogenic bladder Code(s): N31.9 - NEUROMUSCULAR DYSFUNCTION OF BLADDER, UNSPECIFIED (2) Unilateral congenital usbvzg-daemevn-ljuin reflux Assessment/Plan: non obstructive hydro with UTI. he is improving. if he is not would place a calderon Code(s): Q62.7 - CONGENITAL KEBEPN-GGOIDFN-HCJXT REFLUX (3) Bilateral kidney stones Assessment/Plan: non obstructive. may need intervention once UTI is cleared. Code(s): N20.0 - CALCULUS OF KIDNEY
--- NOTE | 2018-02-08 08:11 | PN ---
Physical Exam: SUBJECTIVE: Patient seen and examined, sitting in bedside chair reports feeling much improved, denies any tactile fever, tolerating diet, (Ivanna) at bedside. OBJECTIVE: patient is a 77 y/o man with a PMHx of: HTN, HLD, CAD s/p stents x2, BPH, and PVD. Patient was admitted from the [facility] department for sepsis secondary to bacteremia. Vital Signs Period Temp Pulse Resp BP Sys/Reis Pulse Ox Last 24 Hr 98.0 F-99.2 F 64-86 18-20 139-157/48-76 96-97 GENERAL: The patient is awake, alert, and fully oriented, in no acute distress. HEAD: Normal with no signs of trauma. EYES: PERRL, extraocular movements intact, sclera anicteric, conjunctiva clear. No ptosis. ENT: Ears normal, nares patent, oropharynx clear without exudates, moist mucous membranes. NECK: Trachea midline, full range of motion, supple. LUNGS: Breath sounds equal, clear to auscultation bilaterally, no wheezes, no crackles, no accessory muscle use. HEART: Regular rate and rhythm, S1, S2 without murmur, rub or gallop. ABDOMEN: Soft, nontender, nondistended, normoactive bowel sounds, no guarding, no rebound, no hepatosplenomegaly, no masses. EXTREMITIES: 2+ pulses, warm, well-perfused, no edema. NEUROLOGICAL: Cranial nerves II through XII grossly intact. Normal speech, gait not observed. PSYCH: Normal mood, normal affect. SKIN: Warm, dry, normal turgor, no rashes or lesions noted Laboratory Results - last 24 hr CBC WBC 12.0 K/mm3 (4.0-10.8) H 02/08/18 07:30 RBC 3.94 M/mm3 (4.00-5.60) L 02/08/18 07:30 Hgb 12.4 GM/dl (11.7-16.9) 02/08/18 07:30 Hct 36.0 % (35.4-49) 02/08/18 07:30 MCV 91.3 fl (80-96) 02/08/18 07:30 MCH 31.3 pg (25.7-33.7) 02/08/18 07:30 MCHC 34.3 g/dl (32.0-35.9) 02/08/18 07:30 RDW 13.2 % (11.9-15.9) 02/08/18 07:30 Plt Count 187 K/MM3 (134-434) 02/08/18 07:30 MPV 8.6 fl (7.5-11.1) 02/08/18 07:30 Absolute Neuts (auto) 9.2 # 02/08/18 07:30 Neutrophils % 77.6 % (42.8-82.8) 02/08/18 07:30 Neutrophils % (Manual) 89.0 % (42.8-82.8) H 02/06/18 17:40 Band Neutrophils % 2.0 % (0-10) 02/06/18 17:40 Lymphocytes % 13.2 % (8-40) D 02/08/18 07:30 Lymphocytes % (Manual) 8.0 % (8-40) 02/06/18 17:40 Monocytes % 7.4 % (3.8-10.2) 02/08/18 07:30 Monocytes % (Manual) 1 % (3.8-10.2) L 02/06/18 17:40 Eosinophils % 1.3 % (0-4.5) D 02/08/18 07:30 Basophils % 0.5 % (0-2.0) 02/08/18 07:30 Platelet Estimate Adequate 02/06/18 17:40 CMP Sodium 140 mmol/L (136-145) 02/08/18 07:30 Potassium 3.8 mmol/L (3.5-5.1) 02/08/18 07:30 Chloride 112 mmol/L (98-107) H 02/08/18 07:30 Carbon Dioxide 22 mmol/L (22-28) 02/08/18 07:30 Anion Gap 6 (8-16) L 02/08/18 07:30 BUN 23 mg/dl (7-18) H 02/08/18 07:30 Creatinine 1.1 mg/dl (0.6-1.3) 02/08/18 07:30 Creat Clearance w eGFR > 60 (>60) 02/08/18 07:30 Random Glucose 102 mg/dl (74-106) 02/08/18 07:30 Lactic Acid 1.7 mmol/L (0.0-2.0) 02/06/18 17:40 Calcium 8.5 mg/dl (8.4-10.2) 02/08/18 07:30 Phosphorus 2.0 mg/dl (2.5-4.6) L D 02/08/18 07:30 Magnesium 2.0 mg/dL (1.8-2.4) 02/08/18 07:30 Total Bilirubin 0.6 mg/dl (0.2-1.0) 02/08/18 07:30 AST 24 U/L (10-42) 02/08/18 07:30 ALT 17 U/L (10-40) 02/08/18 07:30 Alkaline Phosphatase 72 U/L (32-92) D 02/08/18 07:30 Troponin I < 0.03 ng/ml (0.00-0.06) 02/06/18 17:40 Total Protein 6.0 g/dl (6.4-8.3) L 02/08/18 07:30 Albumin 2.9 g/dl (3.5-5.0) L 02/08/18 07:30 Active Medications Generic Name Dose Route Start Last Admin Trade Name Freq PRN Reason Stop Dose Admin Acetaminophen 650 mg 02/06/18 20:34 02/07/18 10:05 Tylenol - PO 650 mg Q6H PRN Administration FEVER Ascorbic Acid 500 mg 02/06/18 22:00 02/07/18 21:35 Vitamin C - PO 500 mg BID [facility] Administration Aspirin 81 mg 02/07/18 10:00 02/07/18 10:06 Ecotrin - PO 81 mg DAILY [facility] Administration Atorvastatin Calcium 40 mg 02/06/18 22:00 02/06/18 22:47 Lipitor - PO 40 mg HS [facility] Administration Clopidogrel Bisulfate 75 mg 02/07/18 10:00 02/07/18 10:05 Plavix - PO 75 mg DAILY [facility] Administration Cyanocobalamin 1,000 mcg 02/07/18 10:00 02/07/18 10:05 Vitamin B12 - PO 1,000 mcg DAILY [facility] Administration Dutasteride 0.5 mg 02/07/18 08:30 02/07/18 09:00 Avodart - PO 0.5 mg DAILY@0830 [facility] Administration Daptomycin 660 mg/ Sodium 50 mls @ 50 mls/hr 02/07/18 13:00 02/07/18 13:34 Chloride IVPB 50 mls/hr DAILY [facility] Administration Protocol Meclizine HCl 25 mg 02/06/18 21:51 Antivert - PO PRN PRN dizziness Metoprolol Succinate 25 mg 02/06/18 22:00 02/07/18 21:35 Toprol Xl - PO 25 mg BID [facility] Administration Multivitamins/Minerals/Vitamin C 1 tab 02/07/18 10:00 02/07/18 10:05 Tab-A-Vit - PO 1 tab DAILY [facility] Administration Nifedipine 30 mg 02/07/18 10:00 02/07/18 10:05 Procardia Xl - PO 30 mg DAILY [facility] Administration Non-Formulary Medication 1 each 02/06/18 22:00 02/06/18 22:46 Diclofenac Sodium/Misoprostol [Diclofenac-Misoprost 75-0.2 Tb] PO Not Given BID [facility] Pantoprazole Sodium 40 mg 02/07/18 10:00 02/07/18 10:05 Protonix - PO 40 mg DAILY [facility] Administration Tamsulosin HCl 0.4 mg 02/07/18 08:30 02/07/18 08:45 Flomax - PO 0.4 mg DAILY@0830 [facility] Administration Microbiology 02/06/18 17:40 Blood - Peripheral Venous Blood Culture - Preliminary Beta Hemolytic Strep 02/06/18 18:43 Blood - Peripheral Venous Blood Culture - Preliminary Beta Hemolytic Strep 02/06/18 19:15 Urine - Urine Clean Catch Urine Culture - Preliminary Beta Hemolytic Strep ASSESSMENT/PLAN: 1) ID: Sepsis strep bacteremia uti - both sets of blood cultures and urine culture preliminarily positive for beta hemolytic strep - continue cubicin (02/07 -) as per ID Dr Mckeon - leucytosis trending downward, patient is a afebrile - Dr. Mckeon ID consulted and following 2) UTI//BPH - CTAP- B/L hydronephrosis without obstruction - Urology consulted and followed - INOs 3) Cardio: HTN//HLD//CAD - stable - s/p Stents - Monitor BP - Continue home meds with parameters - will hold statin while patient is receiving Cubicin, Monitor renal function, LFTs FEN - Replete lytes prn - Low Na Diet DVT ppx - OOB - SCDs -TEDs - heparin sq Code Status: Full Code Dispo: requires inpatient admission
[2018-02-08 08:26] LABS: BASO % 0.5 % (0-2.0); EOS % 1.3 % (0-4.5); HEMOGLOBIN 12.4 GM/dl (11.7-16.9); LYMPH % 13.2 % (8-40); MCH 31.3 pg (25.7-33.7); MCHC 34.3 g/dl (32.0-35.9); MEAN CELL VOLUME 91.3 fl (80-96); MEAN PLT VOLUME 8.6 fl (7.5-11.1); MONO % 7.4 % (3.8-10.2); NEUT % 77.6 % (42.8-82.8); PLATELET COUNT 187 K/MM3 (134-434); RBC 3.94 M/mm3 (4.00-5.60); RDW 13.2 % (11.9-15.9)
[2018-02-08 09:05] LABS: ALBUMIN 2.9 g/dl (3.5-5.0); ALK PHOS 72 U/L (32-92); ANION GAP 6 (8-16); BILIRUBIN,TOTAL 0.6 mg/dl (0.2-1.0); BLOOD UREA NITROGEN 23 mg/dl (7-18); CALCIUM 8.5 mg/dl (8.4-10.2); CHLORIDE 112 mmol/L (98-107); CO2 22 mmol/L (22-28); CREATININE 1.1 mg/dl (0.6-1.3); GLUCOSE,RANDOM 102 mg/dl (74-106); POTASSIUM 3.8 mmol/L (3.5-5.1); SGOT/AST 24 U/L (10-42); SGPT/ALT 17 U/L (10-40); SODIUM 140 mmol/L (136-145)
[2018-02-08] MEDS: PANTOPRAZOLE 40 MG TABLET (FP) PO SCH (09:39)
[2018-02-08] MEDS: ASCORBIC ACID 500 MG TABLET (FP) PO SCH ×2 (09:39→21:52)
[2018-02-08] MEDS: NIFEdipine E.R. 30 MG TABLET (FP) PO SCH (09:39)
[2018-02-08] MEDS: metoPROLOL SUCCINATE 25 MG TAB.SR.24H (FP) PO SCH ×2 (09:39→21:52)
[2018-02-08] MEDS: TAMSULOSIN HCL 0.4 MG CAP.ER.24H (FP) PO SCH (09:39)
[2018-02-08] MEDS: DUTASTERIDE 0.5 MG CAP (FP) PO SCH (09:39)
[2018-02-08] MEDS: CYANOCOBALAMIN 1,000 MCG TABLET (FP) PO SCH (09:39)
[2018-02-08] MEDS: MULTIVITAMINS (DAILY MVI) TABLET (FP) PO SCH (09:39)
--- NOTE | 2018-02-08 09:39 | PN ---
Progress Note (short form) - Note Progress Note: white count and fever improving. no surgical intervention needed. follow up as outpatient for management of BPH and kidney stones. Problem List - Problems (1) Neurogenic bladder Code(s): N31.9 - NEUROMUSCULAR DYSFUNCTION OF BLADDER, UNSPECIFIED (2) Unilateral congenital csuflz-giwuujb-kkwjs reflux Code(s): Q62.7 - CONGENITAL QEPIZX-KGEVLCO-DOJGG REFLUX (3) Bilateral kidney stones Code(s): N20.0 - CALCULUS OF KIDNEY
[2018-02-08] MEDS: ASPIRIN COATED 81 MG TABLET.EC PO SCH (09:40)
[2018-02-08] MEDS: CLOPIDOGREL BISULFATE 75 MG TABLET (FP) PO SCH (09:40)
[2018-02-08] MEDS: SODIUM CHLORIDE IVPB SCH (10:48)
[2018-02-08] MEDS: DAPTOMYCIN IVPB SCH (10:48)
--- NOTE | 2018-02-08 11:10 | PN ---
Progress Note, Physician History of Present Illness: Awake, alert No focal complaint Temps, WBC improved BC, Urine c/s B hemolytic strep WBC 12K Echo no vegetations - Current Medication List Current Medications: Active Medications Acetaminophen (Tylenol -) 650 mg PO Q6H PRN PRN Reason: FEVER Last Admin: 02/07/18 10:05 Dose: 650 mg Ascorbic Acid (Vitamin C -) 500 mg PO BID [facility] Last Admin: 02/08/18 09:39 Dose: 500 mg Aspirin (Ecotrin -) 81 mg PO DAILY [facility] Last Admin: 02/08/18 09:40 Dose: 81 mg Atorvastatin Calcium (Lipitor -) 40 mg PO HS [facility] Last Admin: 02/06/18 22:47 Dose: 40 mg Clopidogrel Bisulfate (Plavix -) 75 mg PO DAILY [facility] Last Admin: 02/08/18 09:40 Dose: 75 mg Cyanocobalamin (Vitamin B12 -) 1,000 mcg PO DAILY [facility] Last Admin: 02/08/18 09:39 Dose: 1,000 mcg Dutasteride (Avodart -) 0.5 mg PO DAILY@0830 [facility] Last Admin: 02/08/18 09:39 Dose: 0.5 mg Daptomycin 660 mg/ Sodium (Chloride) 50 mls @ 50 mls/hr IVPB DAILY [facility]; Protocol Last Admin: 02/08/18 10:48 Dose: 50 mls/hr Meclizine HCl (Antivert -) 25 mg PO PRN PRN PRN Reason: dizziness Metoprolol Succinate (Toprol Xl -) 25 mg PO BID [facility] Last Admin: 02/08/18 09:39 Dose: 25 mg Multivitamins/Minerals/Vitamin C (Tab-A-Vit -) 1 tab PO DAILY [facility] Last Admin: 02/08/18 09:39 Dose: 1 tab Nifedipine (Procardia Xl -) 30 mg PO DAILY [facility] Last Admin: 02/08/18 09:39 Dose: 30 mg Non-Formulary Medication (Diclofenac Sodium/Misoprostol [Diclofenac-Misoprost 75 -0.2 Tb]) 1 each PO BID [facility] Last Admin: 02/06/18 22:46 Dose: Not Given Pantoprazole Sodium (Protonix -) 40 mg PO DAILY [facility] Last Admin: 02/08/18 09:39 Dose: 40 mg Tamsulosin HCl (Flomax -) 0.4 mg PO DAILY@0830 [facility] Last Admin: 02/08/18 09:39 Dose: 0.4 mg - Objective Vital Signs: Vital Signs Temperature 98 F 02/08/18 10:56 Pulse Rate 83 02/08/18 10:56 Respiratory Rate 20 02/08/18 05:04 Blood Pressure 153/82 02/08/18 10:56 O2 Sat by Pulse Oximetry (%) 97 02/08/18 10:55 Constitutional: Yes: No Distress Eyes: Yes: Conjunctiva Clear Cardiovascular: Yes: Regular Rate and Rhythm, S1, S2 Respiratory: Yes: CTA Bilaterally Gastrointestinal: Yes: Normal Bowel Sounds, Soft. No: Tenderness Labs: CBC, BMP 02/08/18 07:30 02/08/18 07:30 INR, PTT INR 1.27 (0.82-1.09) H 02/06/18 17:40 Assessment/Plan UTI/ Sepsis secondary to UTI B hemolytic strep BPH Leukocytosis improved Nephrolithiasis Urology consultation appreciated Await final culture result
[2018-02-08] MEDS: NAPH,MB-DB/K PH,MBDB POWDER PACKET PO SCH ×2 (13:53→21:52)
[2018-02-09 08:16] LABS: BASO % 0.4 % (0-2.0); EOS % 2.9 % (0-4.5); HEMATOCRIT 37.8 % (35.4-49); HEMOGLOBIN 12.9 GM/dl (11.7-16.9); LYMPH % 18.9 % (8-40); MCH 31.5 pg (25.7-33.7); MCHC 34.3 g/dl (32.0-35.9); MEAN PLT VOLUME 8.6 fl (7.5-11.1); MONO % 7.9 % (3.8-10.2); NEUT % 69.9 % (42.8-82.8); PLATELET COUNT 232 K/MM3 (134-434); RDW 13.4 % (11.9-15.9); WHITE BLOOD COUNT 10.4 K/mm3 (4.0-10.8)
[2018-02-09 08:30] LABS: ALBUMIN 3.2 g/dl (3.5-5.0); ALK PHOS 77 U/L (32-92); ANION GAP 6 (8-16); BILIRUBIN,TOTAL 0.6 mg/dl (0.2-1.0); BLOOD UREA NITROGEN 20 mg/dl (7-18); CALCIUM 8.5 mg/dl (8.4-10.2); CHLORIDE 110 mmol/L (98-107); CO2 23 mmol/L (22-28); CREATININE 0.9 mg/dl (0.6-1.3); GLUCOSE,RANDOM 102 mg/dl (74-106); MAGNESIUM 1.8 mg/dL (1.8-2.4); PHOSPHOROUS 3.4 mg/dl (2.5-4.6); POTASSIUM 3.6 mmol/L (3.5-5.1); SGOT/AST 28 U/L (10-42); SGPT/ALT 25 U/L (10-40); SODIUM 139 mmol/L (136-145); TOT PROT 6.5 g/dl (6.4-8.3)
[2018-02-09] MEDS: NIFEdipine E.R. 30 MG TABLET (FP) PO SCH (10:55)
[2018-02-09] MEDS: ASCORBIC ACID 500 MG TABLET (FP) PO SCH ×2 (10:55→21:35)
[2018-02-09] MEDS: PANTOPRAZOLE 40 MG TABLET (FP) PO SCH (10:55)
[2018-02-09] MEDS: TAMSULOSIN HCL 0.4 MG CAP.ER.24H (FP) PO SCH (10:55)
[2018-02-09] MEDS: CYANOCOBALAMIN 1,000 MCG TABLET (FP) PO SCH (10:55)
[2018-02-09] MEDS: ASPIRIN COATED 81 MG TABLET.EC PO SCH (10:55)
[2018-02-09] MEDS: metoPROLOL SUCCINATE 25 MG TAB.SR.24H (FP) PO SCH ×2 (10:55→21:35)
[2018-02-09] MEDS: MULTIVITAMINS (DAILY MVI) TABLET (FP) PO SCH (10:56)
[2018-02-09] MEDS: CLOPIDOGREL BISULFATE 75 MG TABLET (FP) PO SCH (10:56)
[2018-02-09] MEDS: NAPH,MB-DB/K PH,MBDB POWDER PACKET PO SCH ×2 (10:56→21:35)
[2018-02-09] MEDS: DUTASTERIDE 0.5 MG CAP (FP) PO SCH (10:59)
[2018-02-09] MEDS: SODIUM CHLORIDE IVPB SCH (11:00)
[2018-02-09] MEDS: DAPTOMYCIN IVPB SCH (11:00)
--- NOTE | 2018-02-09 12:24 | PN ---
Physical Exam: SUBJECTIVE: Patient seen and examined, the patient is ambulatory at bedside with rollator, reports feeling much improved denies any pain, tolerating diet denies any tactile fevers OBJECTIVE:patient is a 77 y/o man with a PMHx of: HTN, HLD, CAD s/p stents x2, BPH, and PVD. [facility] secondary to strep bacteremia. Vital Signs Period Temp Pulse Resp BP Sys/Reis Pulse Ox Last 24 Hr 97.9 F-98.1 F 72-91 18-20 119-168/71-81 97-97 GENERAL: The patient is awake, alert, and fully oriented, in no acute distress. HEAD: Normal with no signs of trauma. EYES: PERRL, extraocular movements intact, sclera anicteric, conjunctiva clear. No ptosis. ENT: Ears normal, nares patent, oropharynx clear without exudates, moist mucous membranes. NECK: Trachea midline, full range of motion, supple. LUNGS: Breath sounds equal, clear to auscultation bilaterally, no wheezes, no crackles, no accessory muscle use. HEART: Regular rate and rhythm, S1, S2 without murmur, rub or gallop. ABDOMEN: Soft, nontender, nondistended, normoactive bowel sounds, no guarding, no rebound, no hepatosplenomegaly, no masses. EXTREMITIES: 2+ pulses, warm, well-perfused, no edema. NEUROLOGICAL: Cranial nerves II through XII grossly intact. Normal speech, gait not observed. PSYCH: Normal mood, normal affect. SKIN: Warm, dry, normal turgor, no rashes or lesions noted Laboratory Results - last 24 hr 02/09/18 02/09/18 07:30 07:30 WBC 10.4 RBC 4.10 Hgb 12.9 Hct 37.8 MCV 92.0 MCH 31.5 MCHC 34.3 RDW 13.4 Plt Count 232 D MPV 8.6 Absolute Neuts (auto) 7.3 Neutrophils % 69.9 Lymphocytes % 18.9 D Monocytes % 7.9 Eosinophils % 2.9 D Basophils % 0.4 Sodium 139 Potassium 3.6 Chloride 110 H Carbon Dioxide 23 Anion Gap 6 L BUN 20 H Creatinine 0.9 Creat Clearance w eGFR > 60 Random Glucose 102 Calcium 8.5 Phosphorus 3.4 D Magnesium 1.8 Total Bilirubin 0.6 AST 28 ALT 25 D Alkaline Phosphatase 77 Total Protein 6.5 Albumin 3.2 L Active Medications Generic Name Dose Route Start Last Admin Trade Name Markq PRN Reason Stop Dose Admin Acetaminophen 650 mg 02/06/18 20:34 02/07/18 10:05 Tylenol - PO 650 mg Q6H PRN Administration FEVER Ascorbic Acid 500 mg 02/06/18 22:00 02/09/18 10:55 Vitamin C - PO 500 mg BID VELVET Administration Aspirin 81 mg 02/07/18 10:00 02/09/18 10:55 Ecotrin - PO 81 mg DAILY VELVET Administration Atorvastatin Calcium 40 mg 02/06/18 22:00 02/06/18 22:47 Lipitor - PO 40 mg HS VELVET Administration Clopidogrel Bisulfate 75 mg 02/07/18 10:00 02/09/18 10:56 Plavix - PO 75 mg DAILY VELVET Administration Cyanocobalamin 1,000 mcg 02/07/18 10:00 02/09/18 10:55 Vitamin B12 - PO 1,000 mcg DAILY VELVET Administration Dutasteride 0.5 mg 02/07/18 08:30 02/09/18 10:59 Avodart - PO 0.5 mg DAILY@0830 VELVET Administration Daptomycin 660 mg/ Sodium 50 mls @ 50 mls/hr 02/07/18 13:00 02/09/18 11:00 Chloride IVPB 50 mls/hr DAILY VELVET Administration Protocol Meclizine HCl 25 mg 02/06/18 21:51 Antivert - PO PRN PRN dizziness Metoprolol Succinate 25 mg 02/06/18 22:00 02/09/18 10:55 Toprol Xl - PO 25 mg BID VELVET Administration Multivitamins/Minerals/Vitamin C 1 tab 02/07/18 10:00 02/09/18 10:56 Tab-A-Vit - PO 1 tab DAILY VELVET Administration Nifedipine 30 mg 02/07/18 10:00 02/09/18 10:55 Procardia Xl - PO 30 mg DAILY VELVET Administration Non-Formulary Medication 1 each 02/06/18 22:00 02/06/18 22:46 Diclofenac Sodium/Misoprostol [Diclofenac-Misoprost 75-0.2 Tb] PO Not Given BID VELVET Pantoprazole Sodium 40 mg 02/07/18 10:00 02/09/18 10:55 Protonix - PO 40 mg DAILY VELVET Administration Potassium Phos/Sodium Phos 1 packet 02/08/18 13:15 02/09/18 10:56 Phos-Nak Packet - PO 1 packet BID VELVET Administration Tamsulosin HCl 0.4 mg 02/07/18 08:30 02/09/18 10:55 Flomax - PO 0.4 mg DAILY@0830 VELVET Administration Microbiology 02/07/18 16:00 Rectal Swab VRE Culture - Preliminary Pending Organism 02/06/18 17:40 Blood - Peripheral Venous Blood Culture - Preliminary Beta Hemolytic Strep 02/06/18 18:43 Blood - Peripheral Venous Blood Culture - Preliminary Beta Hemolytic Strep 02/06/18 19:15 Urine - Urine Clean Catch Urine Culture - Preliminary Beta Hemolytic Strep IMAGING CTAP- right hydronephrosis without obstruction, multiple bladder diverticuli with bladder calculus, enlarged prostate ASSESSMENT/PLAN: 1) ID: Sepsis strep bacteremia uti - both sets of blood cultures and urine culture preliminarily positive for beta hemolytic strep, repeat blood cultures pending - continue cubicin (02/07 -) as per ID Dr Mckeon - leucytosis resolved, patient is a afebrile - Dr. Mckeon ID consulted and following 2) UTI//BPH - Urology consulted and followed - continue flomax - INOs 3) Cardio: HTN//HLD//CAD - stable - s/p Stents - Monitor BP - Continue home meds with parameters - will hold statin while patient is receiving Cubicin, Monitor renal function, LFTs FEN - Replete lytes prn - Low Na Diet DVT ppx - OOB - SCDs -TEDs - heparin sq Code Status: Full Code Dispo: requires inpatient admission
[2018-02-10 06:42] VITALS: TEMP 97.8
[2018-02-10 07:41] LABS: BASO % 0.7 % (0-2.0); EOS % 3.6 % (0-4.5); HEMOGLOBIN 11.9 GM/dl (11.7-16.9); MCH 31.1 pg (25.7-33.7); MEAN CELL VOLUME 91.5 fl (80-96); MEAN PLT VOLUME 8.7 fl (7.5-11.1); MONO % 9.2 % (3.8-10.2); NEUT % 64.5 % (42.8-82.8); PLATELET COUNT 238 K/MM3 (134-434); RBC 3.82 M/mm3 (4.00-5.60); RDW 13.3 % (11.9-15.9); WHITE BLOOD COUNT 9.4 K/mm3 (4.0-10.8)
[2018-02-10 08:59] LABS: ALBUMIN 2.8 g/dl (3.5-5.0); ALK PHOS 70 U/L (32-92); ANION GAP 4 (8-16); BILIRUBIN,TOTAL 0.5 mg/dl (0.2-1.0); BLOOD UREA NITROGEN 24 mg/dl (7-18); CALCIUM 8.3 mg/dl (8.4-10.2); CHLORIDE 109 mmol/L (98-107); CO2 24 mmol/L (22-28); CREATININE 1.1 mg/dl (0.6-1.3); GLUCOSE,RANDOM 95 mg/dl (74-106); MAGNESIUM 1.8 mg/dL (1.8-2.4); PHOSPHOROUS 3.6 mg/dl (2.5-4.6); POTASSIUM 3.7 mmol/L (3.5-5.1); SGOT/AST 26 U/L (10-42); SGPT/ALT 25 U/L (10-40); SODIUM 137 mmol/L (136-145); TOT PROT 5.8 g/dl (6.4-8.3)
[2018-02-10] MEDS ORDERED: PICC LINE 8 ML FLUSH PROTOCOL IVPUSH PRN (09:38)
[2018-02-10] MEDS: DUTASTERIDE 0.5 MG CAP (FP) PO SCH (09:40)
[2018-02-10] MEDS: MULTIVITAMINS (DAILY MVI) TABLET (FP) PO SCH (09:40)
[2018-02-10] MEDS: TAMSULOSIN HCL 0.4 MG CAP.ER.24H (FP) PO SCH (09:40)
[2018-02-10] MEDS: ASPIRIN COATED 81 MG TABLET.EC PO SCH (09:40)
--- NOTE | 2018-02-10 09:40 | PN ---
Progress Note, Physician History of Present Illness: Awake, alert OOB in chair No focal complaint Denies dysuria/ hematuria No urinary retention Temps improved Afebrile. WBC improved WNL BC, Urine c/s group B strep Repeat BC pending Echo no vegetations - Current Medication List Current Medications: Active Medications Acetaminophen (Tylenol -) 650 mg PO Q6H PRN PRN Reason: FEVER Last Admin: 02/07/18 10:05 Dose: 650 mg Ascorbic Acid (Vitamin C -) 500 mg PO BID [facility] Last Admin: 02/09/18 21:35 Dose: 500 mg Aspirin (Ecotrin -) 81 mg PO DAILY [facility] Last Admin: 02/09/18 10:55 Dose: 81 mg Atorvastatin Calcium (Lipitor -) 40 mg PO HS [facility] Last Admin: 02/06/18 22:47 Dose: 40 mg Clopidogrel Bisulfate (Plavix -) 75 mg PO DAILY [facility] Last Admin: 02/09/18 10:56 Dose: 75 mg Cyanocobalamin (Vitamin B12 -) 1,000 mcg PO DAILY [facility] Last Admin: 02/09/18 10:55 Dose: 1,000 mcg Dutasteride (Avodart -) 0.5 mg PO DAILY@0830 [facility] Last Admin: 02/09/18 10:59 Dose: 0.5 mg IV Flush (Picc Line Flush) 8 ml IVPUSH PRN PRN PRN Reason: Protocol Daptomycin 660 mg/ Sodium (Chloride) 50 mls @ 50 mls/hr IVPB DAILY [facility]; Protocol Last Admin: 02/09/18 11:00 Dose: 50 mls/hr Meclizine HCl (Antivert -) 25 mg PO PRN PRN PRN Reason: dizziness Metoprolol Succinate (Toprol Xl -) 25 mg PO BID [facility] Last Admin: 02/09/18 21:35 Dose: 25 mg Multivitamins/Minerals/Vitamin C (Tab-A-Vit -) 1 tab PO DAILY [facility] Last Admin: 02/09/18 10:56 Dose: 1 tab Nifedipine (Procardia Xl -) 30 mg PO DAILY [facility] Last Admin: 02/09/18 10:55 Dose: 30 mg Non-Formulary Medication (Diclofenac Sodium/Misoprostol [Diclofenac-Misoprost 75 -0.2 Tb]) 1 each PO BID [facility] Last Admin: 02/06/18 22:46 Dose: Not Given Pantoprazole Sodium (Protonix -) 40 mg PO DAILY [facility] Last Admin: 02/09/18 10:55 Dose: 40 mg Potassium Phos/Sodium Phos (Phos-Nak Packet -) 1 packet PO BID [facility] Last Admin: 02/09/18 21:35 Dose: 1 packet Tamsulosin HCl (Flomax -) 0.4 mg PO DAILY@0830 [facility] Last Admin: 02/09/18 10:55 Dose: 0.4 mg - Objective Vital Signs: Vital Signs Temperature 97.8 F 02/10/18 06:00 Pulse Rate 71 02/10/18 06:00 Respiratory Rate 18 02/10/18 06:00 Blood Pressure 157/85 02/10/18 06:00 O2 Sat by Pulse Oximetry (%) 98 02/10/18 06:41 Constitutional: Yes: No Distress Eyes: Yes: Conjunctiva Clear Cardiovascular: Yes: Regular Rate and Rhythm, S1, S2 Respiratory: Yes: Diminished Gastrointestinal: Yes: Normal Bowel Sounds, Soft, Abdomen, Obese. No: Tenderness Labs: CBC, BMP 02/10/18 07:15 02/10/18 07:15 INR, PTT INR 1.27 (0.82-1.09) H 02/06/18 17:40 Assessment/Plan UTI/ Sepsis secondary to UTI group B strep BPH Fever /Leukocytosis resolved Nephrolithiasis Urology consultation appreciated Substitute ceftriaxone 2gm IVPB q24h Complete 14d course Discussed PICC for outpatient antibiotic therapy
--- NOTE | 2018-02-10 09:40 | PN ---
Physical Exam: SUBJECTIVE: Patient seen and examined OBJECTIVE: Vital Signs Period Temp Pulse Resp BP Sys/Reis Pulse Ox Last 24 Hr 97.7 F-98.5 F 71-95 18-20 111-157/72-85 96-98 GENERAL: The patient is awake, alert, and fully oriented, in no acute distress. HEAD: Normal with no signs of trauma. EYES: PERRL, extraocular movements intact, sclera anicteric, conjunctiva clear. No ptosis. ENT: Ears normal, nares patent, oropharynx clear without exudates, moist mucous membranes. NECK: Trachea midline, full range of motion, supple. LUNGS: Breath sounds equal, clear to auscultation bilaterally, no wheezes, no crackles, no accessory muscle use. HEART: Regular rate and rhythm, S1, S2 without murmur, rub or gallop. ABDOMEN: Soft, nontender, nondistended, normoactive bowel sounds, no guarding, no rebound, no hepatosplenomegaly, no masses. EXTREMITIES: 2+ pulses, warm, well-perfused, no edema. NEUROLOGICAL: Cranial nerves II through XII grossly intact. Normal speech, gait not observed. PSYCH: Normal mood, normal affect. SKIN: Warm, dry, normal turgor, no rashes or lesions noted Laboratory Results - last 24 hr 02/10/18 02/10/18 07:15 07:15 WBC 9.4 RBC 3.82 L Hgb 11.9 Hct 35.0 L MCV 91.5 MCH 31.1 MCHC 34.0 RDW 13.3 Plt Count 238 MPV 8.7 Absolute Neuts (auto) 6.0 Neutrophils % 64.5 Lymphocytes % 22.0 Monocytes % 9.2 Eosinophils % 3.6 Basophils % 0.7 Sodium 137 Potassium 3.7 Chloride 109 H Carbon Dioxide 24 Anion Gap 4 L BUN 24 H Creatinine 1.1 Creat Clearance w eGFR > 60 Random Glucose 95 Calcium 8.3 L Phosphorus 3.6 Magnesium 1.8 Total Bilirubin 0.5 AST 26 ALT 25 Alkaline Phosphatase 70 Total Protein 5.8 L Albumin 2.8 L Active Medications Generic Name Dose Route Start Last Admin Trade Name Freq PRN Reason Stop Dose Admin Acetaminophen 650 mg 02/06/18 20:34 02/07/18 10:05 Tylenol - PO 650 mg Q6H PRN Administration FEVER Ascorbic Acid 500 mg 02/06/18 22:00 02/09/18 21:35 Vitamin C - PO 500 mg BID VELVET Administration Aspirin 81 mg 02/07/18 10:00 02/09/18 10:55 Ecotrin - PO 81 mg DAILY VELVET Administration Atorvastatin Calcium 40 mg 02/06/18 22:00 02/06/18 22:47 Lipitor - PO 40 mg HS VELVET Administration Clopidogrel Bisulfate 75 mg 02/07/18 10:00 02/09/18 10:56 Plavix - PO 75 mg DAILY VELVET Administration Cyanocobalamin 1,000 mcg 02/07/18 10:00 02/09/18 10:55 Vitamin B12 - PO 1,000 mcg DAILY VELVET Administration Dutasteride 0.5 mg 02/07/18 08:30 02/09/18 10:59 Avodart - PO 0.5 mg DAILY@0830 VELVET Administration IV Flush 8 ml 02/10/18 09:38 Picc Line Flush IVPUSH PRN PRN Protocol Daptomycin 660 mg/ Sodium 50 mls @ 50 mls/hr 02/07/18 13:00 02/09/18 11:00 Chloride IVPB 50 mls/hr DAILY VELVET Administration Protocol Meclizine HCl 25 mg 02/06/18 21:51 Antivert - PO PRN PRN dizziness Metoprolol Succinate 25 mg 02/06/18 22:00 02/09/18 21:35 Toprol Xl - PO 25 mg BID VELVET Administration Multivitamins/Minerals/Vitamin C 1 tab 02/07/18 10:00 02/09/18 10:56 Tab-A-Vit - PO 1 tab DAILY VELVET Administration Nifedipine 30 mg 02/07/18 10:00 02/09/18 10:55 Procardia Xl - PO 30 mg DAILY VELVET Administration Non-Formulary Medication 1 each 02/06/18 22:00 02/06/18 22:46 Diclofenac Sodium/Misoprostol [Diclofenac-Misoprost 75-0.2 Tb] PO Not Given BID [facility] Pantoprazole Sodium 40 mg 02/07/18 10:00 02/09/18 10:55 Protonix - PO 40 mg DAILY VELVET Administration Potassium Phos/Sodium Phos 1 packet 02/08/18 13:15 02/09/18 21:35 Phos-Nak Packet - PO 1 packet BID VELVET Administration Tamsulosin HCl 0.4 mg 02/07/18 08:30 02/09/18 10:55 Flomax - PO 0.4 mg DAILY@0830 [facility] Administration ASSESSMENT/PLAN:
[2018-02-10] MEDS: NIFEdipine E.R. 30 MG TABLET (FP) PO SCH (09:41)
[2018-02-10] MEDS: CLOPIDOGREL BISULFATE 75 MG TABLET (FP) PO SCH (09:41)
[2018-02-10] MEDS: CYANOCOBALAMIN 1,000 MCG TABLET (FP) PO SCH (09:41)
[2018-02-10] MEDS: metoPROLOL SUCCINATE 25 MG TAB.SR.24H (FP) PO SCH (09:41)
[2018-02-10] MEDS: ASCORBIC ACID 500 MG TABLET (FP) PO SCH (09:41)
[2018-02-10] MEDS: NAPH,MB-DB/K PH,MBDB POWDER PACKET PO SCH (09:42)
[2018-02-10] MEDS: SODIUM CHLORIDE IVPB SCH (09:46)
[2018-02-10] MEDS: DAPTOMYCIN IVPB SCH (09:46)
[2018-02-10] MEDS: PANTOPRAZOLE 40 MG TABLET (FP) PO SCH (09:46)
[2018-02-10] MEDS ORDERED: CEFTRIAXONE 2 GM/100 ML BAG IVPB SCH (10:00)
[2018-02-10] MEDS ORDERED: CEFTRIAXONE 2 GM-D5W BAG 2 GM/50 ML BAG IVPB SCH (10:00)
--- NOTE | 2018-02-10 12:40 | DS ---
Physical Exam: SUBJECTIVE: Patient seen and examined, reports feeling much improved ambulatory throughout nursing station with rollator, denies any tactile fever, ready for discharge home, (Ivanna) at bedside OBJECTIVE:This is a 77 y/o man with a PMHx of: HTN, HLD, CAD s/p stents x2, BPH , PVD. Who presents to the ED with his for generalized malaise, weakness and dysuria. Patient reports having UTI symptoms x1 day. Patient reports having subjective fever, was clammy. Patient denies cough, dizziness, SOB, CP, palpitations, AP, N/V/D. ER course was notable for: (1) Sepsis Criteria Met: T Max 101.5, WBC 23.3, BUN 27 (2) UTI: +3 leukocyte esterase, +2 blood (3) CTAP: bilateral hydronephrosis no obstruction Vital Signs Period Temp Pulse Resp BP Sys/Reis Pulse Ox Last 24 Hr 97.7 F-98.5 F 71-95 18-20 111-157/72-85 96-98 PHYSICAL EXAM GENERAL: The patient is awake, alert, and fully oriented, in no acute distress. HEAD: Normal with no signs of trauma. EYES: PERRL, extraocular movements intact, sclera anicteric, conjunctiva clear. ENT: Ears normal, nares patent, oropharynx clear without exudates, moist mucous membranes. NECK: Trachea midline, full range of motion, supple. LUNGS: Breath sounds equal, clear to auscultation bilaterally, no wheezes, no crackles, no accessory muscle use. HEART: Regular rate and rhythm, S1, S2 without murmur, rub or gallop. ABDOMEN: Soft, nontender, nondistended, normoactive bowel sounds, no guarding, no rebound, no hepatosplenomegaly, no masses. EXTREMITIES: 2+ pulses, warm, well-perfused, no edema. NEUROLOGICAL: Cranial nerves II through XII grossly intact. Normal speech, gait not observed. PSYCH: Normal mood, normal affect. SKIN: Warm, dry, normal turgor, no rashes or lesions noted. LABS Laboratory Results - last 24 hr 02/10/18 02/10/18 07:15 07:15 WBC 9.4 RBC 3.82 L Hgb 11.9 Hct 35.0 L MCV 91.5 MCH 31.1 MCHC 34.0 RDW 13.3 Plt Count 238 MPV 8.7 Absolute Neuts (auto) 6.0 Neutrophils % 64.5 Lymphocytes % 22.0 Monocytes % 9.2 Eosinophils % 3.6 Basophils % 0.7 Sodium 137 Potassium 3.7 Chloride 109 H Carbon Dioxide 24 Anion Gap 4 L BUN 24 H Creatinine 1.1 Creat Clearance w eGFR > 60 Random Glucose 95 Calcium 8.3 L Phosphorus 3.6 Magnesium 1.8 Total Bilirubin 0.5 AST 26 ALT 25 Alkaline Phosphatase 70 Total Protein 5.8 L Albumin 2.8 L Microbiology 02/07/18 16:00 Rectal Swab VRE Culture - Final NO VREF ISOLATED 02/06/18 19:15 Urine - Urine Clean Catch Urine Culture - Final Strep Agalactiae Group B 02/06/18 17:40 Blood - Peripheral Venous Blood Culture - Final Strep Agalactiae Group B 02/06/18 18:43 Blood - Peripheral Venous Blood Culture - Preliminary Beta Hemolytic Strep IMAGING CTAP- right hydronephrosis without obstruction, multiple bladder diverticuli with bladder calculus, enlarged prostate HOSPITAL COURSE: 1) Sepsis - resolved, secondary to strep bacteremia and uti - both sets of blood cultures and urine culture positive for beta hemolytic strep, cubicin (02/07 -) as per ID Dr Mckeon - leucytosis resolved, patient is a afebrile - Dr. Mckeon ID consulted and following 2) UTI//BPH - Urology consulted and followed - continue flomax - no signs of urinary retention noted throughout admission 3) HTN//HLD//CAD - stable - s/p Stents - Monitor BP - Continue home meds with parameters - statin held while patient is receiving Cubicin PLAN - PICC line placed in IR 02/10/2018 continue Rocephin 2 g IV daily for 14 days - Follow up with Dr Mckeon within 1 week - plan reviewed with patient and (Ivanna) all questions answered, verbalize understanding Date of Admission:02/07/18 Date of Discharge: 02/10/18 Minutes to complete discharge: 45 Discharge Summary Reason For Visit: URINARY TRACT INFECTION, SITE NOT SPECIFIED,SEPSIS Current Active Problems BPH (benign prostatic hyperplasia) (Acute) Bilateral kidney stones (Acute) CAD (coronary artery disease) (Acute) Fever (Acute) HLD (hyperlipidemia) (Acute) HTN (hypertension) (Acute) Neurogenic bladder (Acute) Sepsis (Acute) UTI (urinary tract infection) (Acute) Unilateral congenital [id number] reflux (Acute) Condition: Stable - Instructions - Home Medications Comprehensive Discharge Medication List: Ambulatory Orders Cyanocobalamin (Vitamin B-12) [B-12] 1,000 mcg PO DAILY tablet 05/21/16 Multivitamin [Daily Vitamin Formula] 1 each PO DAILY tablet 05/21/16 Meclizine HCl 25 mg PO PRN PRN MDD 4 05/25/16 Ascorbic Acid [Vitamin C -] 500 mg PO BID tablet 06/01/16 Sennosides/Docusate Sodium [Pericolace -] 2 tablet PO BID tablet 06/01/16 Aspirin [Aspirin Ec] 81 mg PO DAILY 12/31/16 Nifedipine [Procardia Xl] 30 mg PO DAILY 12/31/16 Clopidogrel Bisulfate [Plavix] 75 mg PO DAILY 02/06/18 Diclofenac Sodium/Misoprostol [Diclofenac-Misoprost 75-0.2 Tb] 1 each PO BID Metoprolol Succinate 25 mg PO BID 02/06/18
[2018-02-10 14:28] VITALS: BP 112/81; PULSE 91
== END 2018-02-10 17:10 | disposition home health service (06) | DRG 872 ==
LOC: FER 16:30 → UNDOADMOB 19:48 → FM/S 19:48 → OBSVTOIN 02-07 11:17
PROVIDERS: ADMIT Internal Medicine; ATTEND Nurse Practitioner Family
PROC: 02HV33Z Insertion of Infusion Device into Superior Vena Cava, Percutaneous Approach (ICD-10-PCS; principal; 2018-02-10)
DX: A40.1 Sepsis due to streptococcus, group B (principal); N13.6 Pyonephrosis; R53.1 Weakness; I10 Essential (primary) hypertension; E78.5 Hyperlipidemia, unspecified; N40.0 Benign prostatic hyperplasia without lower urinary tract symptoms; I25.10 Atherosclerotic heart disease of native coronary artery without angina pectoris; R50.9 Fever, unspecified; I73.9 Peripheral vascular disease, unspecified; K21.9 Gastro-esophageal reflux disease without esophagitis; N31.9 Neuromuscular dysfunction of bladder, unspecified; I71.2 Thoracic aortic aneurysm, without rupture; E66.8 Other obesity; Z68.32 Body mass index [BMI] 32.0-32.9, adult; Q62.7 Congenital vesico-uretero-renal reflux; D72.829 Elevated white blood cell count, unspecified; Z95.5 Presence of coronary angioplasty implant and graft
CPT/HCPCS: 36415; 36569; 71045-TC-FY; 74176-TC; 80048; 80053; 81003; 81015; 82803; 83605; 83735; 84100; 84484; 85025; 85610; 85730; 87040; 87081; 87086; 87186; 93005; 93306-TC; 97116-GP; 97161-GP; 99284-25; C1751; G0378; J0131; J0878; J7030

== ENCOUNTER 2018-05-05 11:22 | Emergency (ER) | payer OTHER ==
--- NOTE | 2018-05-05 11:50 | PDOC ---
History of Present Illness - General Chief Complaint: Injury Stated Complaint: FELL Time Seen by Provider: 05/05/18 11:38 - History of Present Illness Initial Comments: 05/05/18 18:26 Chief complaint: Injury right knee History of present illness: Slipped and fell in the bathroom, twisting right knee. Pain and difficulty ambulating. Review of systems: Denies pain or injury to the head neck chest abdomen spine pelvis or other extremities. Denies chest pain, shortness of breath, nausea, vomiting, diarrhea, visual or focal neurologic symptoms, loss of consciousness Past medical history: Right knee replacement, chronic arthritis, swelling, and pain. Social history: Lives with his , usually has difficulty ambulating, frequent falls, no alcohol or tobacco or drugs Family history reviewed and noncontributory Physical exam: Alert and oriented moderately obese no distress at rest pain with weightbearing Afebrile, vital signs stable Head atraumatic. PERRLA, fundi benign, ENT clear Neck supple without bruit mass or nodes Chest clear. No chest wall or rib cage tenderness or deformity S1 and S2 normal without murmur rub or gallop pulses full and symmetric no JVD or edema regular Abdomen soft nontender without mass or organomegaly Extremities: The left knee is diffusely swollen, but there is no obvious effusion. There is stress tenderness of the medial collateral ligament. Cannot assess the ACL due to pain and guarding. The hip has good range of motion without limitation or pain. The femur has no palpable swelling or tenderness. There is 2+ edema of the right calf but no posterior calf swelling or tenderness and no cords. There is no visible or palpable trauma to the ankle or foot. Impression: Possible acute fracture of the distal femur or proximal tibia, tibial plateau, or other area of the knee. Plan: X-ray and further medical management depending on results. Past History - Past Medical History Allergies/Adverse Reactions: Allergies Allergy/AdvReac Type Severity Reaction Status Date / Time No Known Drug Allergies Allergy Verified 05/05/18 11:31 Home Medications: Ambulatory Orders Cyanocobalamin (Vitamin B-12) [B-12] 1,000 mcg PO DAILY tablet 05/21/16 Multivitamin [Daily Vitamin Formula] 1 each PO DAILY tablet 05/21/16 Ascorbic Acid [Vitamin C -] 500 mg PO BID tablet 06/01/16 Aspirin [Aspirin EC] 81 mg PO DAILY 12/31/16 Nifedipine [Procardia Xl] 30 mg PO HS 12/31/16 Diclofenac Sodium/Misoprostol [Diclofenac-Misoprost 75-0.2 Tb] 1 each PO BID Metoprolol Succinate 25 mg PO BID 02/06/18 Acetaminophen [Tylenol .Regular Strength -] 650 mg PO Q6H PRN tablet 02/10/18 Tamsulosin HCl [Flomax -] 0.4 mg PO DAILY@0830 #30 cap.er.24h 02/10/18 Atorvastatin Ca [Lipitor] 40 mg PO HS 05/05/18 Dutasteride/Tamsulosin HCl [Dutasteride-Tamsulosin 0.5-0.4] 1 each PO HS Naproxen Sodium [Aleve] 220 mg PO BID PRN 05/05/18 Vit C/E/Zn/Coppr/Lutein/Zeaxan [Preservision Areds 2 Softgel] 1 each PO BID Anemia: No Asthma: No Cancer: No Cardiac Disorders: No CVA: No COPD: No CHF: No Dementia: No Diabetes: No GI Disorders: Yes (RECTAL BLEEDING 2012) Disorders: Yes (multiple stones) HTN: Yes Hypercholesterolemia: Yes Kidney Stones: Yes Liver Disease: No Seizures: No Thyroid Disease: No - Surgical History Abdominal Surgery: Yes (HERNIA REPAIR 25 YRS AGO) Appendectomy: No Cardiac Surgery: Yes (2017 X2 STENT) Cholecystectomy: No Lung Surgery: No Neurologic Surgery: No Orthopedic Surgery: Yes (KYPHOPLASTY) - Suicide/Smoking/Psychosocial Hx Smoking Status: No Smoking History: Never smoked Have you smoked in the past 12 months: No Number of Cigarettes Smoked Daily: 0 Hx Alcohol Use: No Drug/Substance Use Hx: No Substance Use Type: None Hx Substance Use Treatment: No Medical Decision Making - Medical Decision Making 05/05/18 18:25 X-rays of the femur, knee, and lower leg were negative for fracture Ultrasound was negative for DVT Oniel wrap and knee immobilizer were applied, and the patient was able to stand, bear weight, and ambulate with a walker Discharged with his to follow-up with orthopedist as directed. Adequately ambulatory and pain controlled. *DC/Admit/Observation/Transfer Diagnosis at time of Disposition: Sprain, knee Qualifiers: Encounter type: initial encounter Involved ligament of knee: unspecified ligament Laterality: right Qualified Code(s): S83.91XA - Sprain of unspecified site of right knee, initial encounter - Discharge Dispostion Disposition: HOME Condition at time of disposition: Improved Decision to Admit order: No - Referrals Referrals: Orestes Calles MD [Staff Physician] - 3 days - Patient Instructions Printed Discharge Instructions: DI for Knee Sprain, How to Use a Knee Immobilizer - Post Discharge Activity
[2018-05-05 12:25] VITALS: BP 150/85; PULSE 78; TEMP 97.6; BMI 32.1
== END 2018-05-05 15:33 | disposition home or self-care (01) ==
LOC: FER 11:22
PROC: 2W3QX1Z Immobilization of Right Lower Leg using Splint (ICD-10-PCS; principal; 2018-05-05)
DX: S83.91XA Sprain of unspecified site of right knee, initial encounter (principal); I10 Essential (primary) hypertension; E78.00 Pure hypercholesterolemia, unspecified; X50.0XXA Overexertion from strenuous movement or load, initial encounter; Y93.89 Activity, other specified; Y92.002 Bathroom of unspecified non-institutional (private) residence as the place of occurrence of the external cause
CPT/HCPCS: 73552-TC-RT-FY; 73560-TC-RT-FY; 73590-TC-RT-FY; 93971-TC; 99282-25

== ENCOUNTER 2018-12-25 11:14 | Inpatient (IN) | payer OTHER ==
--- NOTE | 2018-12-25 11:18 | PDOC ---
History of Present Illness - General Chief Complaint: Injury Stated Complaint: FALL, BACK PAIN Time Seen by Provider: 12/25/18 11:17 - History of Present Illness Initial Comments: 78yo M with PMH of CAD s/p two stents, HTN, HLD, skin CA, kyphoplasty presenting after a fall. Patient is accompanied by his who is a nurse at this hospital. He has been feeling weak and fatigued for the past couple days. When he feels this way, he usually has a urinary tract infection. Patient has taken three doses of amoxicillin thus far. Early this morning around 2 or 3 am, patient started ambulating with his walker to a chair but fell backwards and hit the back of his head. Denies loss of consciousness, nausea, or vomiting. Did not feel any acute symptoms and decided not to present to the ED immediately. This morning, patient felt pain in his mid-back that he rates 8-9/ 10 when he moves and 0/10 when he stays still. Last took tylenol at 5am. Has had cloudy urine, but denies urinary symptoms: no frequency, urgency, dysuria, or hematuria. No chest pain, shortness of breath, or abdominal pain. PCP: Dr. Lange Cardiology: Dr. Elliott Orthopedics: Dr. Keane Past History - Past Medical History Allergies/Adverse Reactions: Allergies Allergy/AdvReac Type Severity Reaction Status Date / Time No Known Drug Allergies Allergy Verified 12/25/18 11:15 Home Medications: Ambulatory Orders Cyanocobalamin (Vitamin B-12) [B-12] 1,000 mcg PO DAILY tablet 05/21/16 Multivitamin [Daily Vitamin Formula] 1 each PO DAILY tablet 05/21/16 Ascorbic Acid [Vitamin C -] 500 mg PO BID tablet 06/01/16 Aspirin [Aspirin EC] 81 mg PO DAILY 12/31/16 Nifedipine [Procardia Xl] 30 mg PO HS 12/31/16 Diclofenac Sodium/Misoprostol [Diclofenac-Misoprost 75-0.2 Tb] 1 each PO BID Metoprolol Succinate 25 mg PO BID 02/06/18 Acetaminophen [Tylenol .Regular Strength -] 650 mg PO Q6H PRN tablet 02/10/18 Tamsulosin HCl [Flomax -] 0.4 mg PO DAILY@0830 #30 cap.er.24h 02/10/18 Atorvastatin Ca [Lipitor] 40 mg PO HS 05/05/18 Dutasteride/Tamsulosin HCl [Dutasteride-Tamsulosin 0.5-0.4] 1 each PO HS Vit C/E/Zn/Coppr/Lutein/Zeaxan [Preservision Areds 2 Softgel] 1 each PO BID Anemia: No Asthma: No Cancer: No Cardiac Disorders: No CVA: No COPD: No CHF: No Dementia: No Diabetes: No GI Disorders: Yes (RECTAL BLEEDING 2012) Disorders: Yes (multiple stones) HTN: Yes Hypercholesterolemia: Yes Kidney Stones: Yes Liver Disease: No Seizures: No Thyroid Disease: No - Surgical History Abdominal Surgery: Yes (HERNIA REPAIR 25 YRS AGO) Appendectomy: No Cardiac Surgery: Yes (2016 X2 STENT) Cholecystectomy: No Lung Surgery: No Neurologic Surgery: No Orthopedic Surgery: Yes (KYPHOPLASTY) - Suicide/Smoking/Psychosocial Hx Smoking Status: No Smoking History: Never smoked Have you smoked in the past 12 months: No Number of Cigarettes Smoked Daily: 0 Hx Alcohol Use: No Drug/Substance Use Hx: No Substance Use Type: None Hx Substance Use Treatment: No Review of Systems - Review of Systems Comments:: Constitutional: no fever, no chills HEENT: no throat pain, no dysphagia Cardiovascular: no chest pain, no palpitations Respiratory: no cough, no shortness of breath Gastrointestinal: no abdominal pain, no nausea Genitourinary: no dysuria, no frequency Musculoskeletal: +back pain, no neck pain Skin: no rash, no itching Neurologic: no headache, +weakness *Physical Exam - Physical Exam Comments: General: Awake, alert, and fully oriented, in no acute distress Head: No signs of trauma Eyes: EOMI, sclera anicteric ENT: Dry mucus membranes Neck: Normal ROM, supple Lungs: Lungs clear, Normal breath sounds Cardio: Regular rhythm, S1 and S2 present Abdomen: Soft, nontender. No guarding, no rebound, no masses Extremities: Normal range of motion, Distal pulses present SKIN: Warm, Dry, normal turgor Neurologic: Cranial nerves II through XII intact. Normal speech, sensation, strength, coordination. Gait exam deferred. Back: Tender to palpation in thoracic area, midline, no step-offs/deformities/ fluctuance; no overlying wound or lesion; negative straight leg test bilaterally ED Treatment Course - LABORATORY CBC & Chemistry Diagram: 06/12/19 07:13 12/27/18 07:13 Medical Decision Making - Medical Decision Making 78yo M with PMH of CAD s/p two stents, HTN, HLD, skin CA, kyphoplasty presenting after a fall. DDX including but not limited to fracture, UTI, PNA, brain bleed, bacteremia, arrhythmia Labs, EKG, CXR CT Head, C-spine, T-spine 1L NS 12/25/18 12:18 EKG: rate 75, Qtc 442, sinus, 1st degree av block, frequent PVCs, incomplete RBBB CBC WBC 11.4 K/mm3 (4.0-10.8) H 12/25/18 12:25 RBC 4.08 M/mm3 (4.00-5.60) 12/25/18 12:25 Hgb 12.7 GM/dl (11.7-16.9) 12/25/18 12:25 Hct 38.9 % (35.4-49) 12/25/18 12:25 MCV 95.5 fl (80-96) 12/25/18 12:25 MCH 31.2 pg (25.7-33.7) 12/25/18 12:25 MCHC 32.7 g/dl (32.0-35.9) 12/25/18 12:25 RDW 13.8 % (11.9-15.9) 12/25/18 12:25 Plt Count 167 K/MM3 (134-434) D 12/25/18 12:25 MPV 10.4 fl (7.5-11.1) D 12/25/18 12:25 Absolute Neuts (auto) 9.5 K/mm3 12/25/18 12:25 Neutrophils % No Result Required. 12/25/18 12:25 Neutrophils % (Manual) 82.0 % (42.8-82.8) 12/25/18 12:25 Lymphocytes % No Result Required. 12/25/18 12:25 Lymphocytes % (Manual) 13.0 % (8-40) D 12/25/18 12:25 Monocytes % 8.6 % (3.8-10.2) 12/25/18 12:25 Monocytes % (Manual) 4 % (3.8-10.2) D 12/25/18 12:25 Eosinophils % 0.9 % (0-4.5) 12/25/18 12:25 Eosinophils % (Manual) 1.0 % (0-4.5) 12/25/18 12:25 Basophils % 0.3 % (0-2.0) 12/25/18 12:25 Mild leukocytosis No anemia CMP Sodium 138 mmol/L (136-145) 12/25/18 12:25 Potassium 4.3 mmol/L (3.5-5.1) 12/25/18 12:25 Chloride 108 mmol/L (98-107) H 12/25/18 12:25 Carbon Dioxide 22 mmol/L (21-32) 12/25/18 12:25 Anion Gap 8 MMOL/L (8-16) 12/25/18 12:25 BUN 37.0 mg/dl (7-18) H 12/25/18 12:25 Creatinine 2.0 mg/dl (0.55-1.3) H 12/25/18 12:25 Est GFR (CKD-EPI)AfAm 36.24 12/25/18 12:25 Est GFR (CKD-EPI)NonAf 31.26 12/25/18 12:25 Random Glucose 112 mg/dl (74-106) H 12/25/18 12:25 Calcium 8.8 mg/dl (8.5-10) 12/25/18 12:25 Total Bilirubin 0.9 mg/dl (0.2-1) 12/25/18 12:25 AST 14 U/L (15-37) L 12/25/18 12:25 ALT 11 U/L (13-61) L 12/25/18 12:25 Alkaline Phosphatase 34 U/L (45-117) L 12/25/18 12:25 Total Protein 6.1 g/dl (6.4-8.2) L 12/25/18 12:25 Albumin 3.2 g/dl (3.4-5.0) L 12/25/18 12:25 Creatinine elevated at 2.0, patient's baseline is 1.0 No transaminitis UA shows UTI: 3+LE, >100 WBCs Rocephin ordered 12/25/18 14:13 Plan for admission for UTI and BRIT Dr. Zamorano discussed case with inpatient team who accepted patient for admission under Dr. Franklin 12/25/18 14:48 CXR: "A single AP view of the chest is been submitted. Since the prior study of 02/06/2018, again noted is the enlarged heart, normal aorta, prominent hilar markings and clear lung franco. An acute process is not seen. Since 02/06/2018 there is no change of an adverse injury. " CT C-spine and T-spine: "Multiplanar imaging of the cervical and thoracic spine was performed. The cervical and thoracic spine demonstrate no CT evidence of acute fracture. A chronic vertebral body compression fracture is noted within the partially imaged upper lumbar spine. Status post vertebral plasty at the same level. Multilevel degenerative disc and facet joint changes are noted. The perivertebral soft tissues demonstrate no obvious abnormality. IMPRESSION: No acute fracture is seen involving the cervical or thoracic spine. " CT Head: "no CT evidence of intracranial injury or calvarial fracture. There is no extra-axial fluid collection. No discrete infarct is identified with the limitations of CT. Moderate periventricular and subcortical white matter microvascular ischemic gliosis is noted. There is no obvious mass lesion on noncontrast imaging. Moderate ventricular dilatation is seen probably due to central atrophy, less likely normal pressure hydrocephalus. Incidental note is made of a stable right temporoparietal outer table osteoma. IMPRESSION: No CT evidence of acute intracranial pathology. There has been no definite interval change in comparison to a prior CT exam of 05/07/2016. Moderate ventricular dilatation is seen probably due to central atrophy, less likely normal pressure hydrocephalus. Correlate clinically. moderate periventricular and subcortical chronic microvascular ischemic changes are noted. " *DC/Admit/Observation/Transfer Diagnosis at time of Disposition: BRIT (acute kidney injury) UTI (urinary tract infection) Qualifiers: Urinary tract infection type: site unspecified Hematuria presence: without hematuria Qualified Code(s): N39.0 - Urinary tract infection, site not specified - Discharge Dispostion Condition at time of disposition: Guarded Decision to Admit order: Yes - Referrals - Patient Instructions - Post Discharge Activity
[2018-12-25] MEDS ORDERED: SODIUM CHLORIDE 1,000 ML IV STA (12:17)
[2018-12-25 12:56] LABS: ACTIVATED PTT 25.5 SECONDS (25.2-36.5)
[2018-12-25 12:57] LABS: HEMOGLOBIN 12.7 GM/dl (11.7-16.9); RDW 13.8 % (11.9-15.9)
[2018-12-25 12:58] LABS: ALBUMIN 3.2 g/dl (3.4-5.0); BILIRUBIN,TOTAL 0.9 mg/dl (0.2-1); CALCIUM 8.8 mg/dl (8.5-10); POTASSIUM 4.3 mmol/L (3.5-5.1); TOT PROT 6.1 g/dl (6.4-8.2)
[2018-12-25 13:01] LABS: BASO % 0.3 % (0-2.0); INR 1.37 (0.82-1.09); PROTHROMBIN TIME (PATIENT) 15.2 SEC (10.2-13.0)
[2018-12-25 13:05] LABS: EOS % 0.9 % (0-4.5); MONO % 8.6 % (3.8-10.2)
[2018-12-25 13:08] LABS: HEMATOCRIT 38.9 % (35.4-49); MCH 31.2 pg (25.7-33.7); MCHC 32.7 g/dl (32.0-35.9); MEAN CELL VOLUME 95.5 fl (80-96); MEAN PLT VOLUME 10.4 fl (7.5-11.1); PLATELET COUNT 167 K/MM3 (134-434); RBC 4.08 M/mm3 (4.00-5.60); WHITE BLOOD COUNT 11.4 K/mm3 (4.0-10.8)
[2018-12-25 13:36] LABS: EPITHELIAL CELLS FEW /hpf
[2018-12-25] MEDS ORDERED: CEFTRIAXONE 1,000 MG in DEXTROSE 5%-WATER - 50 ML IVPB ONE (14:12)
[2018-12-25] MEDS ORDERED: cefTRIAXone SODIUM 1 GM VIAL ONE (14:15)
--- NOTE | 2018-12-25 14:47 | HP ---
CHIEF COMPLAINT: Weakness, fatigue, falls PCP: Dr. Lange Cardiology: Dr. Elliott Ortho: Dr. Keane HISTORY OF PRESENT ILLNESS: 78 year-old male with a PMH significant for HTN, HLD, CAD s/p stents x 2, PVD, recurrent UTIs, renal and ureteral calculi, and BPH. He has been feeling weak and fatigued for the past couple days. When he feels this way, he usually has a urinary tract infection. Patient has taken three doses of amoxicillin thus far. Early this morning around 2 or 3 am, patient started ambulating with his walker to a chair but fell backwards and hit the back of his head. Denies loss of consciousness, nausea, or vomiting. Did not feel any acute symptoms and decided not to present to the ED immediately. This morning, patient felt pain in his mid -back. Has had cloudy urine, but denies urinary symptoms: no frequency, urgency , dysuria, or hematuria. Patient reports increasing SOB over the past month, TILLEY with walking just a few feet at home which is new for him. He has had swelling in his feet and ankles for several months. Patient has fallen three times in past month. He walks at baseline with a walker but his reports his gait has become increasingly unsteady. ER course was notable for: (1) WBC 11.4 (2) BUN/Cr 37/2.0 (3) 3+leuks, pyuria >100 WBCs (4) Ceftriaxone x 1; NS x 1L Recent Travel: No PAST MEDICAL HISTORY: Hypertension Hyperlipidemia Coronary artery disease Peripheral vascular disease Anemia B12 deficiency GERD Recurrent UTI/pyelo Renal/ureteral calculi BPH PAST SURGICAL HISTORY: Nephrostomy tube 2014 Partial prostatectomy Right lateral knee 2016 Coronary stents x 2 2017 Bilateral cataracts Lithotripsy Kyphoplasty Social History: lives with Smoking: never Alcohol: no Drugs: no Family History: Allergies No Known Drug Allergies Allergy (Verified 12/25/18 11:15) HOME MEDICATIONS: Home Medications Medication Instructions Recorded Cyanocobalamin (Vitamin B-12) 1,000 mcg PO DAILY tablet 05/21/16 [B-12] Multivitamin [Daily Vitamin 1 each PO DAILY tablet 05/21/16 Formula] Ascorbic Acid [Vitamin C -] 500 mg PO BID tablet 06/01/16 Aspirin [Aspirin EC] 81 mg PO DAILY 12/31/16 Nifedipine [Procardia Xl] 30 mg PO HS 12/31/16 Diclofenac Sodium/Misoprostol 1 each PO BID 02/06/18 [Diclofenac-Misoprost 75-0.2 Tb] Metoprolol Succinate 25 mg PO BID 02/06/18 Acetaminophen [Tylenol .Regular 650 mg PO Q6H PRN tablet 02/10/18 Strength -] Tamsulosin HCl [Flomax -] 0.4 mg PO DAILY@0830 #30 cap.er.24h 02/10/18 Atorvastatin Ca [Lipitor] 40 mg PO HS 05/05/18 Dutasteride/Tamsulosin HCl 1 each PO HS 05/05/18 [Dutasteride-Tamsulosin 0.5-0.4] Vit C/E/Zn/Coppr/Lutein/Zeaxan 1 each PO BID 05/05/18 [Preservision Areds 2 Softgel] REVIEW OF SYSTEMS CONSTITUTIONAL: +generalized weakness Absent: fever, chills, diaphoresis, malaise, loss of appetite, weight change HEENT: Absent: rhinorrhea, nasal congestion, throat pain, throat swelling, difficulty swallowing, mouth swelling, ear pain, eye pain, visual changes CARDIOVASCULAR: + pedal edema Absent: chest pain, syncope, palpitations, irregular heart rate, lightheadedness RESPIRATORY: +SOB, TILLEY Absent: cough, orthopnea, wheezing, stridor, hemoptysis GASTROINTESTINAL: Absent: abdominal pain, abdominal distension, nausea, vomiting, diarrhea, constipation, melena, hematochezia GENITOURINARY: Absent: dysuria, frequency, urgency, hesitancy, hematuria, flank pain, genital pain MUSCULOSKELETAL: +chronic back pain Absent: myalgia, arthralgia, joint swelling, neck pain SKIN: Absent: rash, itching, pallor HEMATOLOGIC/IMMUNOLOGIC: Absent: easy bleeding, easy bruising, lymphadenopathy, frequent infections ENDOCRINE: Absent: unexplained weight gain, unexplained weight loss, heat intolerance, cold intolerance NEUROLOGIC: Absent: headache, focal weakness or paresthesias, dizziness, unsteady gait, seizure, mental status changes, bladder or bowel incontinence PSYCHIATRIC: Absent: anxiety, depression, suicidal or homicidal ideation, hallucinations. PHYSICAL EXAMINATION Vital Signs - 24 hr 12/25/18 11:15 Temperature 98.7 F Pulse Rate 89 Respiratory 18 Rate Blood Pressure 169/91 O2 Sat by Pulse 100 Oximetry (%) GENERAL: Awake, alert, and fully oriented, in no acute distress. HEAD: Normal with no signs of trauma. EYES: Pupils equal, round and reactive to light, extraocular movements intact, sclera anicteric, conjunctiva clear. No lid lag. EARS, NOSE, THROAT: Ears normal, nares patent, oropharynx clear without exudates. Moist mucous membranes. Poor dentition. NECK: Normal range of motion, supple without lymphadenopathy, JVD, or masses. LUNGS: Breath sounds equal, clear to auscultation bilaterally. No wheezes, and no crackles. No accessory muscle use. HEART: Distant heart sounds; RRR, S1, S2 ABDOMEN: Soft, nontender, not distended UPPER EXTREMITIES: 2+ pulses, warm, well-perfused. No cyanosis. No clubbing. No peripheral edema. LOWER EXTREMITIES: 1+ pulses, warm, well-perfused. No calf tenderness. 2+ bilateral pedal and ankle edema; mild venous stasis changes bilaterally NEUROLOGICAL: Cranial nerves II-XII intact. Normal speech. Laboratory Results - last 24 hr 12/25/18 12/25/18 12/25/18 12:25 12:25 12:25 WBC 11.4 H RBC 4.08 Hgb 12.7 Hct 38.9 MCV 95.5 MCH 31.2 MCHC 32.7 RDW 13.8 Plt Count 167 D MPV 10.4 D Absolute Neuts (auto) 9.5 Neutrophils % No Result Required. Neutrophils % (Manual) 82.0 Lymphocytes % No Result Required. Lymphocytes % (Manual) 13.0 D Monocytes % 8.6 Monocytes % (Manual) 4 D Eosinophils % 0.9 Eosinophils % (Manual) 1.0 Basophils % 0.3 PT with INR 15.2 H INR 1.37 H PTT (Actin FS) 25.5 Sodium 138 Potassium 4.3 Chloride 108 H Carbon Dioxide 22 Anion Gap 8 BUN 37.0 H Creatinine 2.0 H Est GFR (CKD-EPI)AfAm 36.24 Est GFR (CKD-EPI)NonAf 31.26 Random Glucose 112 H Calcium 8.8 Total Bilirubin 0.9 AST 14 L ALT 11 L Alkaline Phosphatase 34 L Total Protein 6.1 L Albumin 3.2 L Urine Color Urine Appearance Urine pH Urine Protein Urine Glucose (UA) Urine Ketones Urine Blood Urine Nitrite Urine Bilirubin Urine Urobilinogen Ur Leukocyte Esterase Urine RBC Urine WBC Ur Transition Epith Cell 12/25/18 13:02 WBC RBC Hgb Hct MCV MCH MCHC RDW Plt Count MPV Absolute Neuts (auto) Neutrophils % Neutrophils % (Manual) Lymphocytes % Lymphocytes % (Manual) Monocytes % Monocytes % (Manual) Eosinophils % Eosinophils % (Manual) Basophils % PT with INR INR PTT (Actin FS) Sodium Potassium Chloride Carbon Dioxide Anion Gap BUN Creatinine Est GFR (CKD-EPI)AfAm Est GFR (CKD-EPI)NonAf Random Glucose Calcium Total Bilirubin AST ALT Alkaline Phosphatase Total Protein Albumin Urine Color Yellow Urine Appearance Cloudy Urine pH 5.5 Urine Protein 2+ H Urine Glucose (UA) Negative Urine Ketones Negative Urine Blood 3+ H Urine Nitrite Negative Urine Bilirubin Negative Urine Urobilinogen 0.2 Ur Leukocyte Esterase 3+ Urine RBC 5-10 Urine WBC >100 Ur Transition Epith Cell Few ASSESSMENT/PLAN 78 year-old male with a PMH significant for HTN, HLD, CAD s/p stents x 2, PVD, recurrent UTIs, renal calculi, and BPH. Admitted for UTI and BRIT. UTI --pyuria, leukocytosis --ceftraixone (day #1) BRIT --Cr 2.0 on admission, baseline 1.0 --urine studies ordered --hold further IV fluids pending workup for heart failure r/o heart failure --has been experiencing SOB, TILLEY, increased fatigue and weakness x 1 month, pedal edema x 3 months --was previously on ACEI/ARB but stopped because dropped BP too low? --echo ordered --Dr. Elliott regular speech language specialist, will reach out Hypertension --BP elevated --continue Toprol XL, nifedipine Hyperlipidemia --continue Lipitor Coronary artery disease --continue ASA, Toprol XL, Lipitor Peripheral vascular disease --continue ASA, statin BPH --continue avodart, flomax GERD --continue Protonix FEN Fluids: PO intake adequate Electrolytes: replete as indicated Nutrition: low sodium DVT prophylaxis: subq heparin Physical therapy Dispo: continues to require inpatient care. Full code. : Ivanna Mcgrath RN. . Visit type - Emergency Visit Emergency Visit: Yes ED Registration Date: 12/25/18 Care time: The patient presented to the Emergency Department on the above date and was hospitalized for further evaluation of their emergent condition. - New Patient This patient is new to me today: Yes Date on this admission: 12/25/18 - Critical Care Critical Care patient: No
--- NOTE | 2018-12-25 14:52 | PDOC ---
Attending Attestation - Resident Resident Name: Wanda Montenegro - ED Attending Attestation I have performed the following: I have examined & evaluated the patient, The case was reviewed & discussed with the resident, I agree w/resident's findings & plan, Exceptions are as noted - HPI HPI: 12/25/18 14:48 78 M with h/o HTN, HLD, CAD s/p stents x2, BPH, PVD presenting to ED with 3 days of weakness and fall. Pt denies any F/C but states that he often has UTIs when he feels weak. Denies dysuria. Pt also had a fall today while attempting to sit. Denies LOC but endorses headstrike. Denies CP/SOB/palpitations. Pt states that he has been taking amoxicillin for the past 2 days with no improvement in symptoms. - Physicial Exam PE: 12/25/18 14:49 GENERAL: Awake, alert, and fully oriented, in no acute distress. HEAD: No signs of trauma EYES: PERRLA, EOMI, sclera anicteric, conjunctiva clear ENT: Auricles normal inspection, hearing grossly normal, nares patent, oropharynx clear without exudates. Moist mucosa NECK: Nontender, no stepoffs, Normal ROM, supple, no lymphadenopathy, JVD, or masses LUNGS: Breath sounds equal, clear to auscultation bilaterally. No wheezes, and no crackles HEART: Regular rate and rhythm, normal S1 and S2, no murmurs, rubs or gallops ABDOMEN: Soft, nontender, normoactive bowel sounds. No guarding, no rebound. No masses EXTREMITIES: Normal range of motion, no edema. No clubbing or cyanosis. No cords, erythema, or tenderness NEUROLOGICAL: Cranial nerves II through XII intact. 5/5 strength and sensation in all extremities, Normal speech, normal gait, normal cerebellar function SKIN: Warm, Dry, normal turgor, no rashes or lesions noted. BACK: + TTP mid thoracic spine, no stepoffs - Medical Decision Making 12/25/18 14:50 78 M with weakness and fall today. Will evaluate for infectious process as pt has h/o UTIs. Pt with no signs of significant trauma on exam, but given back pain will obtain CTs of C and T spine, as well as CT head given headstrike. - Labs, UA, UCx - CT head/cervical/thoracic spine - IVF 12/25/18 14:51 Labs notable for UTI Pt also has BRIT with Cr bump 1.1 -> 2.0 Will admit for IV hydration and abx Ceftriaxone ordered Pt admitted to hospitalist
[2018-12-25] MEDS ORDERED: SODIUM CHLORIDE 500 ML IV STA (15:19)
[2018-12-25] MEDS ORDERED: SODIUM CHLORIDE 1,000 ML IV SCH (16:30)
[2018-12-25 17:51] VITALS: BMI 33.0
[2018-12-25] MEDS: metoPROLOL SUCCINATE 25 MG TAB.SR.24H (FP) PO SCH (21:06)
[2018-12-25] MEDS: NIFEdipine E.R. 30 MG TABLET (FP) PO SCH (21:06)
[2018-12-25] MEDS: ATORVASTATIN CA 40 MG TABLET (FP) PO SCH (21:06)
[2018-12-25] MEDS: HEPARIN NA (PORCINE) 5,000 UNITS/ML 1ML VIAL SQ SCH (21:07)
[2018-12-25] MEDS: TAMSULOSIN HCL 0.4 MG CAP PO SCH (21:07)
[2018-12-25] MEDS: NYSTATIN POWDER 100,000 UNITS/GM - 15 GM TOPICAL POWDER TP SCH (22:00)
[2018-12-26] MEDS ORDERED: PT OWN MED DRAWER 7, Y5N ONE (06:42)
[2018-12-26 08:43] LABS: BASO % 0.6 % (0-2.0); EOS % 3.5 % (0-4.5); HEMATOCRIT 39.1 % (35.4-49); HEMOGLOBIN 12.8 GM/dl (11.7-16.9); LYMPH % 15.9 % (8-40); MCH 31.3 pg (25.7-33.7); MCHC 32.6 g/dl (32.0-35.9); MONO % 10.8 % (3.8-10.2); NEUT % 69.2 % (42.8-82.8); PLATELET COUNT 163 K/MM3 (134-434); RBC 4.08 M/mm3 (4.00-5.60); RDW 13.8 % (11.9-15.9); WHITE BLOOD COUNT 8.7 K/mm3 (4.0-10.8)
[2018-12-26] MEDS: CYANOCOBALAMIN 1,000 MCG TABLET (FP) PO SCH (09:06)
[2018-12-26] MEDS: PANTOPRAZOLE 40 MG TABLET (FP) PO SCH (09:06)
[2018-12-26] MEDS: metoPROLOL SUCCINATE 25 MG TAB.SR.24H (FP) PO SCH ×2 (09:06→21:20)
[2018-12-26] MEDS: ASPIRIN COATED 81 MG TABLET.EC PO SCH (09:06)
[2018-12-26] MEDS: TAMSULOSIN HCL 0.4 MG CAP PO SCH ×2 (09:06→21:20)
[2018-12-26] MEDS: DUTASTERIDE 0.5 MG CAP (FP) PO SCH (09:06)
[2018-12-26] MEDS: NYSTATIN POWDER 100,000 UNITS/GM - 15 GM TOPICAL POWDER TP SCH ×2 (09:07→22:33)
[2018-12-26 09:25] LABS: BILIRUBIN,TOTAL 0.6 mg/dL (0.2-1); BLOOD UREA NITROGEN 28.5 mg/dL (7-18); CALCIUM 8.2 mg/dL (8.5-10.1); CREATININE 1.7 mg/dL (0.55-1.3); MAGNESIUM 2.1 mg/dL (1.8-2.4); PHOSPHOROUS 2.2 mg/dL (2.5-4.9); TOT PROT 6.2 g/dl (6.4-8.2)
[2018-12-26] MEDS: LIDOCAINE 5% TOPICAL PATCH TP SCH (10:19)
[2018-12-26] MEDS: CEFTRIAXONE 1 G/50 ML PREMIX 50 ML IVPB SCH (10:33)
--- NOTE | 2018-12-26 12:51 | EKG ---
Test Reason : Blood Pressure : / mmHG Vent. Rate : 075 BPM Atrial Rate : 075 BPM P-R Int : 274 ms QRS Dur : 104 ms QT Int : 396 ms P-R-T Axes : 065 -05 039 degrees QTc Int : 442 ms SINUS RHYTHM WITH 1ST DEGREE A-V BLOCK WITH FREQUENT PREMATURE VENTRICULAR COMPLEXES INCOMPLETE RIGHT BUNDLE BRANCH BLOCK INFERIOR INFARCT (CITED ON OR BEFORE 07-FEB-2018) ABNORMAL ECG Confirmed by Albert Alan MD ([id number]) on 12/26/2018 12:50:46 PM Referred By: STAS SORIA Confirmed By:Albert Alan MD
[2018-12-26] MEDS: HEPARIN NA (PORCINE) 5,000 UNITS/ML 1ML VIAL SQ SCH ×2 (14:37→21:20)
--- NOTE | 2018-12-26 14:52 | PN ---
Physical Exam: SUBJECTIVE: Patient seen and examined oob to chair. Has pain to right knee, site of partial replacement 2016. Thinks his leg was malpositioned and it is swollen. OBJECTIVE: Vital Signs Period Temp Pulse Resp BP Sys/Reis Pulse Ox Last 24 Hr 97.8 F-99.3 F 68-104 16-20 137-163/80-94 96-99 GENERAL: Awake, alert, and fully oriented, in no acute distress. LUNGS: Breath sounds equal, clear to auscultation bilaterally. No wheezes, and no crackles. No accessory muscle use. HEART: Distant heart sounds; RRR, S1, S2 ABDOMEN: Soft, nontender, not distended UPPER EXTREMITIES: 2+ pulses, warm, well-perfused. No cyanosis. No clubbing. No peripheral edema. LOWER EXTREMITIES: 1+ pulses, warm, well-perfused. No calf tenderness. 2+ bilateral pedal and ankle edema; mild venous stasis changes bilaterally; Right knee: well-healed surgical scar, mild swelling, tenderness, no warmth, no erythema NEUROLOGICAL: Cranial nerves II-XII intact. Normal speech. Gait not observed. Laboratory Results - last 24 hr 12/25/18 12/25/18 12/25/18 12:25 19:20 20:00 WBC RBC Hgb Hct MCV MCH MCHC RDW Plt Count MPV Absolute Neuts (auto) Neutrophils % Lymphocytes % Monocytes % Eosinophils % Basophils % Sodium Potassium Chloride Carbon Dioxide Anion Gap BUN Creatinine Est GFR (CKD-EPI)AfAm Est GFR (CKD-EPI)NonAf Random Glucose Calcium Phosphorus Magnesium Total Bilirubin AST ALT Alkaline Phosphatase Troponin I < 0.03 < 0.03 Total Protein Albumin Ur Random Creatinine 126.0 Ur Random Sodium 55 12/26/18 12/26/18 12/26/18 03:00 03:00 07:21 WBC 8.7 RBC 4.08 Hgb 12.8 Hct 39.1 MCV 96.0 MCH 31.3 MCHC 32.6 RDW 13.8 Plt Count 163 MPV 10.0 Absolute Neuts (auto) 6.0 Neutrophils % 69.2 Lymphocytes % 15.9 D Monocytes % 10.8 H Eosinophils % 3.5 D Basophils % 0.6 Sodium Potassium Chloride Carbon Dioxide Anion Gap BUN Creatinine Est GFR (CKD-EPI)AfAm Est GFR (CKD-EPI)NonAf Random Glucose Calcium Phosphorus Magnesium Total Bilirubin AST ALT Alkaline Phosphatase Troponin I Cancelled < 0.02 Total Protein Albumin Ur Random Creatinine Ur Random Sodium 12/26/18 07:21 WBC RBC Hgb Hct MCV MCH MCHC RDW Plt Count MPV Absolute Neuts (auto) Neutrophils % Lymphocytes % Monocytes % Eosinophils % Basophils % Sodium 143 Potassium 4.0 Chloride 112 H Carbon Dioxide 24 Anion Gap 7 L BUN 28.5 H Creatinine 1.7 H Est GFR (CKD-EPI)AfAm 44.10 Est GFR (CKD-EPI)NonAf 38.05 Random Glucose 92 Calcium 8.2 L Phosphorus 2.2 L Magnesium 2.1 Total Bilirubin 0.6 AST 11 L ALT 23 Alkaline Phosphatase 102 Troponin I Total Protein 6.2 L Albumin 3.0 L Ur Random Creatinine Ur Random Sodium Active Medications Generic Name Dose Route Start Last Admin Trade Name Freq PRN Reason Stop Dose Admin Aspirin 81 mg 12/26/18 10:00 12/26/18 09:06 Ecotrin - PO 81 mg DAILY VELVET Administration Atorvastatin Calcium 40 mg 12/25/18 22:00 12/25/18 21:06 Lipitor - PO 40 mg HS VELVET Administration Cyanocobalamin 1,000 mcg 12/26/18 10:00 12/26/18 09:06 Vitamin B12 - PO 1,000 mcg DAILY [facility]ELVET Administration Dutasteride 0.5 mg 12/26/18 10:00 12/26/18 09:06 Avodart - PO 0.5 mg DAILY [facility]ELVET Administration Heparin Sodium (Porcine) 5,000 unit 12/25/18 22:00 12/26/18 14:37 Heparin - SQ 5,000 unit TID [facility]ELVET Administration Ceftriaxone Sodium 50 mls @ 100 mls/hr 12/26/18 10:30 12/26/18 10:33 Ceftriaxone 1 Gm-D5w Bag IVPB 100 mls/hr DAILY [facility]ELVET Administration Protocol Lidocaine 1 patch 12/26/18 10:00 12/26/18 10:19 Lidoderm Patch - TP 1 patch DAILY [facility]EL[facility]ET Administration Metoprolol Succinate 25 mg 12/25/18 22:00 12/26/18 09:06 Toprol Xl - PO 25 mg BID [facility]EL[facility]ET Administration Miscellaneous 1 each 12/26/18 22:00 Lidoderm Patch Removal MC DAILY@2200 [facility]ELVET Nifedipine 30 mg 12/25/18 22:00 12/25/18 21:06 Procardia Xl - PO 30 mg HS VELVET Administration Nystatin 1 applic 12/25/18 22:00 12/26/18 09:07 Nystop Powder - TP 1 applic BID [facility]ELVET Administration Pantoprazole Sodium 40 mg 12/26/18 10:00 12/26/18 09:06 Protonix - PO 40 mg DAILY [facility]ET Administration Tamsulosin HCl 0.4 mg 12/25/18 22:00 12/26/18 09:06 Flomax - PO 0.4 mg BID VELVET Administration ASSESSMENT/PLAN 78 year-old male with a PMH significant for HTN, HLD, CAD s/p stents x 2, PVD, recurrent UTIs, renal calculi, and BPH. Admitted for UTI and BRIT. LFGNB UTI --pyuria, leukocytosis --ceftraixone (day #2) BRIT --Cr 2.0 on admission, 1.7 today, baseline 1.0 --FeNa 0.6% pre renal --has gotten a total of 2L of fluid so far --continue gentle IV fluids Grade I diastolic dysfunction --has been experiencing SOB, TILLEY, increased fatigue and weakness x 1 month, pedal edema x 3 months --12/26 Echo: LV normal, Grade I diastolic dysfunction; RV normal; mild TR --no diuretics for now due to BRIT --cardiology consult pending Hypertension --BP elevated --continue Toprol XL, nifedipine --consider starting ACEI Hyperlipidemia --continue Lipitor Coronary artery disease --continue ASA, Toprol XL, Lipitor Peripheral vascular disease --continue ASA, statin BPH --continue avodart, flomax GERD --continue Protonix Right knee pain --acute v. chronic? --consult requested for Dr. Yonathan Keane, ortho surgeon who performed knee replacement FEN Fluids: PO intake adequate Electrolytes: replete as indicated Nutrition: low sodium DVT prophylaxis: subq heparin Physical therapy Dispo: continues to require inpatient care. Full code. : Ivanna Mcgrath RN. . Visit type - Emergency Visit Emergency Visit: Yes ED Registration Date: 12/25/18 Care time: The patient presented to the Emergency Department on the above date and was hospitalized for further evaluation of their emergent condition. - New Patient This patient is new to me today: No - Critical Care Critical Care patient: No
--- NOTE | 2018-12-26 15:20 | ECHO ---
Version: 1 Name: [facility]ISS EPPS Exam: Adult Echocardiogram Study Date: 12/26/2018, 2:31 PM Age: 78 Years MMode/2D Measurements & Calculations IVSd: 1.26 cm LVIDs: 3.2 cm LVIDd: 4.6 cm LVPWd: 0.89 cm LVOT diam: 2.00 cm Ao root diam: 3.0 cm LA dimension: 3.1 cm Doppler Measurements & Calculations MV E max jermaine: 36.6 cm/sec MV A max jermaine: 82.2 cm/sec MV E/A: 0.45 Ao max P.6 mmHg Ao V2 max: 128.2 cm/sec PI end-d jermaine: 104.7 cm/sec Procedure A two-dimensional transthoracic echocardiogram with color flow and Doppler was performed in limited views only. Left Ventricle The left ventricular size, thickness and function are normal. Grade I diastolic dysfunction, (abnorm al relaxation pattern). Right Ventricle The right ventricle is normal in size and function. Atria Normal left and right atrial size and function. Mitral Valve The mitral valve is normal in structure and function. There is no mitral regurgitation noted. Tricuspid Valve The tricuspid valve is normal in structure and function. There is mild tricuspid regurgitation. Aortic Valve The aortic valve is not well visualized. No hemodynamically significant valvular aortic stenosis. Pulmonic Valve The pulmonic valve is not well visualized. Great Vessels The aortic root is normal size. Pericardium/Pleura There is no pericardial effusion. Summary Statements A two-dimensional transthoracic echocardiogram with color flow and Doppler was performed in limited views only. The left ventricular size, thickness and function are normal The right ventricle is normal in size and function. The aortic valve is not well visualized. No hemodynamically significant valvular aortic stenosis. Kirit Guillory 12/26/2018, 2:19 PM Ordering Physician: Caron Rosado Performed By: Ava Monsalve
--- NOTE | 2018-12-26 17:30 | CON.CARD ---
Consult Consult Specialty:: Cardiology Reason for Consultation:: Shortness of breath - History of Present Illness Chief Complaint: TILLEY. LE edema History of Present Illness: This is a 78 year old male with a PMH of CAD s/p coronary stenting x2, HTN, and HLD. He presents now to the hospital after a fall. He ambulates with a walker. Over the past several days he has felt generalized fatigue and weakness which is the usual case when he gets a UTI. No chest pain but does have TILLEY. He started ambulating with his walker to a chair but fell backwards and hit the back of his head. - Past Medical History [employer]: Yes: Vertigo, Other (ascending thoracic aneurysm) Cardio/Vascular: Yes: HTN Gastrointestinal: Yes: GERD Renal/: Yes: BPH, Neurogenic Bladder, Renal Calculi, UTI - Alcohol/Substance Use Hx Alcohol Use: No - Smoking History Smoking history: Never smoked Have you smoked in the past 12 months: No Aproximately how many cigarettes per day: 0 Home Medications - Allergies Allergies/Adverse Reactions: Allergies Allergy/AdvReac Type Severity Reaction Status Date / Time No Known Drug Allergies Allergy Verified 12/25/18 11:15 - Home Medications Home Medications: Ambulatory Orders Cyanocobalamin (Vitamin B-12) [B-12] 1,000 mcg PO DAILY tablet 05/21/16 Multivitamin [Daily Vitamin Formula] 1 each PO DAILY tablet 05/21/16 Ascorbic Acid [Vitamin C -] 500 mg PO BID tablet 06/01/16 Aspirin [Aspirin EC] 81 mg PO DAILY 12/31/16 Nifedipine [Procardia Xl] 30 mg PO HS 12/31/16 Diclofenac Sodium/Misoprostol [Diclofenac-Misoprost 75-0.2 Tb] 1 each PO BID Metoprolol Succinate 25 mg PO BID 02/06/18 Acetaminophen [Tylenol .Regular Strength -] 650 mg PO Q6H PRN tablet 02/10/18 Tamsulosin HCl [Flomax -] 0.4 mg PO DAILY@0830 #30 cap.er.24h 02/10/18 Atorvastatin Ca [Lipitor] 40 mg PO HS 05/05/18 Dutasteride/Tamsulosin HCl [Dutasteride-Tamsulosin 0.5-0.4] 1 each PO HS Vit C/E/Zn/Coppr/Lutein/Zeaxan [Preservision Areds 2 Softgel] 1 each PO BID Review of Systems Unable to obtain ROS, reason: As per HPI Vital Signs: Vital Signs Temperature 98.7 F 12/26/18 14:13 Pulse Rate 104 H 12/26/18 14:13 Respiratory Rate 12/26/18 14:13 Blood Pressure 150/84 12/26/18 14:13 O2 Sat by Pulse Oximetry (%) 99 12/26/18 14:13 Constitutional: Yes: No Distress Eyes: Yes: WNL HENT: Yes: WNL Neck: Yes: WNL Respiratory: Yes: Rales (Bibasilar rales) Gastrointestinal: Yes: Soft Cardiovascular: Yes: Regular Rate and Rhythm (NL S1S2 no MRHG) Edema: Yes Edema: LLE: 1+ (Brawny), RLE: 1+ (Brawny) Neurological: Yes: Alert, Oriented - Other Data Labs, Other Data: CBC, BMP 12/26/18 07:21 12/26/18 07:21 INR, PTT INR 1.37 (0.82-1.09) H 12/25/18 12:25 Troponin, BNP 12/25/18 12/25/18 12/26/18 12:25 19:20 03:00 Troponin I < 0.03 < 0.03 Cancelled 12/26/18 03:00 Troponin I < 0.02 Troponin, BNP 12/25/18 12/25/18 12/26/18 12:25 19:20 03:00 Troponin I < 0.03 < 0.03 Cancelled 12/26/18 03:00 Troponin I < 0.02 Assessment/Plan 78 year old male with a PMH of CAD s/p coronary stenting x2, HTN, and HLD. He presents now to the hospital after a fall. He ambulates with a walker. Over the past several days he has felt generalized fatigue and weakness which is the usual case when he gets a UTI. No chest pain but does have TILLEY. He started ambulating with his walker to a chair but fell backwards and hit the back of his head. Echocardiogram 12/26/18 Normal LV size and function, diastolic dysfunction, RV size and function, no MR, mild TR Trops neg Diastolic CHF as suggested by echocardiogram Would obtain a BNP Would add a diuretic if BNP is elevated Continue metoprolol tartarte 25 mg PO BID Continue nifedipine XL 30 mg PO daily Low sodium diet
[2018-12-26] MEDS: ATORVASTATIN CA 40 MG TABLET (FP) PO SCH (21:20)
[2018-12-26] MEDS: NIFEdipine E.R. 30 MG TABLET (FP) PO SCH (21:20)
[2018-12-26] MEDS: LIDOCAINE PATCH REMOVAL MC SCH (21:22)
--- NOTE | 2018-12-26 22:30 | CONSULT ---
Consult - text type - Consultation Consultation Note: Orthopedics 78yo male well known to me s/p R partial knee replacement. Admitted after fall in which pt states he fell backwards from standing height. C/o right knee pain and pain when weightbearing. Pt seen and examined. Awake/alert/comfortable. Gen: NAD RLE: intact skin, no cuts, abrasions, ecchymosis. (+) TTP over lateral aspect of knee, with some localized swelling here. Increased pain with varus stress. No effusion. No significant pain with ROM of knee. XR right knee - no obvious fracture. Component position unchanged. A/P right knee pain after fall. Findings discussed with pt. LCL sprain vs contusion vs fibular head fracture CT right knee ordered Will follow.
[2018-12-27] MEDS: HEPARIN NA (PORCINE) 5,000 UNITS/ML 1ML VIAL SQ SCH ×4 (06:14→21:20)
[2018-12-27 08:11] LABS: BASO % 0.6 % (0-2.0); EOS % 4.5 % (0-4.5); LYMPH % 24.7 % (8-40); MCH 31.5 pg (25.7-33.7); MCHC 33.4 g/dl (32.0-35.9); MEAN CELL VOLUME 94.4 fl (80-96); MEAN PLT VOLUME 9.4 fl (7.5-11.1); MONO % 13.5 % (3.8-10.2); NEUT % 56.7 % (42.8-82.8); PLATELET COUNT 171 K/MM3 (134-434); RBC 3.81 M/mm3 (4.00-5.60); RDW 13.7 % (11.9-15.9); WHITE BLOOD COUNT 7.5 K/mm3 (4.0-10.8)
[2018-12-27 08:23] LABS: ALBUMIN 2.8 g/dl (3.4-5.0); BILIRUBIN,TOTAL 0.8 mg/dl (0.2-1); CALCIUM 8.4 mg/dl (8.5-10); CREATININE 1.4 mg/dl (0.55-1.3); MAGNESIUM 1.9 mg/dL (1.8-2.4); TOT PROT 5.6 g/dl (6.4-8.2)
[2018-12-27] MEDS ORDERED: PT OWN MED DRAWER 7, Y5N ONE (09:32)
[2018-12-27] MEDS: NYSTATIN POWDER 100,000 UNITS/GM - 15 GM TOPICAL POWDER TP SCH ×2 (09:40→22:01)
[2018-12-27] MEDS: CEFTRIAXONE 1 G/50 ML PREMIX 50 ML IVPB SCH (09:40)
[2018-12-27] MEDS: LIDOCAINE 5% TOPICAL PATCH TP SCH (09:41)
[2018-12-27] MEDS: TAMSULOSIN HCL 0.4 MG CAP PO SCH ×2 (09:41→21:20)
[2018-12-27] MEDS: DUTASTERIDE 0.5 MG CAP (FP) PO SCH (09:41)
[2018-12-27] MEDS: PANTOPRAZOLE 40 MG TABLET (FP) PO SCH (09:41)
[2018-12-27] MEDS: metoPROLOL SUCCINATE 25 MG TAB.SR.24H (FP) PO SCH ×2 (09:41→21:19)
[2018-12-27] MEDS: CYANOCOBALAMIN 1,000 MCG TABLET (FP) PO SCH (09:41)
[2018-12-27] MEDS: ASPIRIN COATED 81 MG TABLET.EC PO SCH (09:41)
[2018-12-27] MEDS ORDERED: FUROSEMIDE 20 MG TABLET (FP) PO SCH (10:00)
--- NOTE | 2018-12-27 13:23 | PN ---
Progress Note, Physician Chief Complaint: pt reports continued knee and back pain. Denies SOB/CP BNP remains elevated. Will start lasix today - Current Medication List Current Medications: Active Medications Aspirin (Ecotrin -) 81 mg PO DAILY [facility] Last Admin: 12/27/18 09:41 Dose: 81 mg Atorvastatin Calcium (Lipitor -) 40 mg PO HS [facility] Last Admin: 12/26/18 21:20 Dose: 40 mg Cyanocobalamin (Vitamin B12 -) 1,000 mcg PO DAILY [facility] Last Admin: 12/27/18 09:41 Dose: 1,000 mcg Dutasteride (Avodart -) 0.5 mg PO DAILY [facility] Last Admin: 12/27/18 09:41 Dose: 0.5 mg Furosemide (Lasix -) 40 mg PO DAILY [facility] Heparin Sodium (Porcine) (Heparin -) 5,000 unit SQ TID [facility] Last Admin: 12/27/18 13:19 Dose: Not Given Ceftriaxone Sodium (Ceftriaxone 1 Gm-D5w Bag) 50 mls @ 100 mls/hr IVPB DAILY [facility]; Protocol Last Admin: 12/27/18 09:40 Dose: 100 mls/hr Lidocaine (Lidoderm Patch -) 1 patch TP DAILY [facility] Last Admin: 12/27/18 09:41 Dose: 1 patch Metoprolol Succinate (Toprol Xl -) 25 mg PO BID [facility] Last Admin: 12/27/18 09:41 Dose: 25 mg Miscellaneous (Lidoderm Patch Removal) 1 each MC DAILY@2200 [facility] Last Admin: 12/26/18 21:22 Dose: 1 each Nifedipine (Procardia Xl -) 30 mg PO HS [facility] Last Admin: 12/26/18 21:20 Dose: 30 mg Nystatin (Nystop Powder -) 1 applic TP BID [facility] Last Admin: 12/27/18 09:40 Dose: 1 applic Pantoprazole Sodium (Protonix -) 40 mg PO DAILY [facility] Last Admin: 12/27/18 09:41 Dose: 40 mg Tamsulosin HCl (Flomax -) 0.4 mg PO BID [facility] Last Admin: 12/27/18 09:41 Dose: 0.4 mg - Objective Vital Signs: Vital Signs Temperature 97.5 F L 12/27/18 10:00 Pulse Rate 99 H 12/27/18 10:00 Respiratory Rate 19 12/27/18 10:00 Blood Pressure 153/87 12/27/18 10:00 O2 Sat by Pulse Oximetry (%) 97 12/27/18 10:00 Constitutional: Yes: Well Nourished, No Distress, Calm, Obese (dishelved) Eyes: Yes: Conjunctiva Clear, PERRL HENT: Yes: Atraumatic, Normocephalic Neck: Yes: Supple Cardiovascular: Yes: Other (distant S1/S2, no murmurs appreciated) Respiratory: Yes: Regular, Diminished (at the bases) Gastrointestinal: Yes: Normal Bowel Sounds (increased girth), Soft, Abdomen, Obese ...Rectal Exam: Yes: Deferred Musculoskeletal: Yes: Back Pain Extremities: Yes: WNL, Other Edema: Yes Edema: LLE: Trace, RLE: Trace Peripheral Pulses WNL: Yes Peripheral Pulses: Left Radial: 2+, Right Radial: 2+, Left Doralis Pedis: 1+, Right Dorsalis Pedis: 1+ Integumentary: Yes: Venous Stasis Changes, Other (scaling to b/l forearms) Neurological: Yes: Alert, Oriented ...Motor Strength: WNL Psychiatric: Yes: Alert, Oriented Labs: CBC, BMP 12/27/18 07:13 12/27/18 07:13 INR, PTT INR 1.37 (0.82-1.09) H 12/25/18 12:25 Problem List - Problems (1) Osteoarthritis of right knee Assessment/Plan: pt being followed by orthopedics CT RLE no significant findings Daily PT APAP PRN pain lidoderm patch for pain Code(s): M17.9 - OSTEOARTHRITIS OF KNEE, UNSPECIFIED Qualifiers: Osteoarthritis type: primary Qualified Code(s): M17.11 - Unilateral primary osteoarthritis, right knee (2) UTI (urinary tract infection) Assessment/Plan: UCX w/ pansensitive E. Coli Continue ceftriaxone 1G daily trend temp curve and WBC Code(s): N39.0 - URINARY TRACT INFECTION, SITE NOT SPECIFIED Qualifiers: Urinary tract infection type: site unspecified Hematuria presence: without hematuria Qualified Code(s): N39.0 - Urinary tract infection, site not specified (3) BPH (benign prostatic hyperplasia) Assessment/Plan: continue avodart and flomax Code(s): N40.0 - BENIGN PROSTATIC HYPERPLASIA WITHOUT LOWER URINRY TRACT SYMP (4) HLD (hyperlipidemia) Assessment/Plan: continue lipitor and ASA Code(s): E78.5 - HYPERLIPIDEMIA, UNSPECIFIED (5) Prophylactic measure Assessment/Plan: OOB to chair PPI daily Vitamin B12 daily Ambulate with 1person assistance Code(s): Z29.9 - ENCOUNTER FOR PROPHYLACTIC MEASURES, UNSPECIFIED (6) HTN (hypertension) Assessment/Plan: continue procardia XL 30mg daily continue metoprolol 25mg BID trend BP cardiac diet Code(s): I10 - ESSENTIAL (PRIMARY) HYPERTENSION (7) Elevated brain natriuretic peptide (BNP) level Assessment/Plan: BNP remains elevated - start lasix daily trend Scr and electrolytes on lasix Echo unremarkable cards recs appreciated Pt wishes to f/u with his outpt professor of surgery (Dr. Elliott) upon discharge Code(s): R79.89 - OTHER SPECIFIED ABNORMAL FINDINGS OF BLOOD CHEMISTRY Impression/Plan Impression/Plan: Code status: Full Visit type - Emergency Visit Emergency Visit: Yes ED Registration Date: 12/25/18 Care time: The patient presented to the Emergency Department on the above date and was hospitalized for further evaluation of their emergent condition. - New Patient This patient is new to me today: Yes Date on this admission: 12/27/18 - Critical Care Critical Care patient: No - Discharge Referral Referred to [facility] Med P.C.: No
[2018-12-27] MEDS ORDERED: MAGNESIUM SULF 50% (8.12 MEQ/2 ML-1 GM VIAL) IVPB ONE (14:40)
[2018-12-27] MEDS ORDERED: MAGNESIUM 1GM/D5W - 1 GM/100 ML IVPB IVPB ONE (15:00)
[2018-12-27] MEDS: ATORVASTATIN CA 40 MG TABLET (FP) PO SCH (21:20)
[2018-12-27] MEDS: NIFEdipine E.R. 30 MG TABLET (FP) PO SCH (21:20)
[2018-12-27] MEDS: LIDOCAINE PATCH REMOVAL MC SCH (22:02)
[2018-12-28] MEDS: HEPARIN NA (PORCINE) 5,000 UNITS/ML 1ML VIAL SQ SCH ×3 (06:32→22:10)
[2018-12-28 08:13] LABS: HEMOGLOBIN 12.6 GM/dl (11.7-16.9); MCH 31.3 pg (25.7-33.7); MCHC 33.1 g/dl (32.0-35.9); MEAN CELL VOLUME 94.7 fl (80-96); PLATELET COUNT 209 K/MM3 (134-434); RBC 4.01 M/mm3 (4.00-5.60); RDW 13.1 % (11.9-15.9); WHITE BLOOD COUNT 7.6 K/mm3 (4.0-10.8)
--- NOTE | 2018-12-28 08:17 | PN ---
Progress Note, Physician Chief Complaint: lower back pain, right knee pain History of Present Illness: PCP: Dr. Lange Cardiology: Dr. Elliott Ortho: Dr. Keane HISTORY OF PRESENT ILLNESS: 78 year-old male with a PMH significant for HTN, HLD, CAD s/p stents x 2, PVD, recurrent UTIs, renal and ureteral calculi, and BPH. He has been feeling weak and fatigued prior to admission . Upon presentation to ED, patient felt pain in his mid-back. Has had cloudy urine, but denies urinary symptoms: no frequency , urgency, dysuria, or hematuria. Patient reports increasing SOB over the past month, TILLEY with walking just a few feet at home which is new for him. He has had swelling in his feet and ankles for several months. Patient has fallen three times in past month. He walks at baseline with a walker but his reports his gait has become increasingly unsteady. ER course was notable for: (1) WBC 11.4 (2) BUN/Cr 37/2.0 (3) 3+leuks, pyuria >100 WBCs (4) Ceftriaxone x 1; NS x 1L - Current Medication List Current Medications: Active Medications Aspirin (Ecotrin -) 81 mg PO DAILY [facility] Last Admin: 12/27/18 09:41 Dose: 81 mg Atorvastatin Calcium (Lipitor -) 40 mg PO HS [facility] Last Admin: 12/27/18 21:20 Dose: 40 mg Cyanocobalamin (Vitamin B12 -) 1,000 mcg PO DAILY [facility] Last Admin: 12/27/18 09:41 Dose: 1,000 mcg Dutasteride (Avodart -) 0.5 mg PO DAILY [facility] Last Admin: 12/27/18 09:41 Dose: 0.5 mg Furosemide (Lasix -) 40 mg PO DAILY [facility] Heparin Sodium (Porcine) (Heparin -) 5,000 unit SQ TID [facility] Last Admin: 12/28/18 06:32 Dose: 5,000 unit Ceftriaxone Sodium (Ceftriaxone 1 Gm-D5w Bag) 50 mls @ 100 mls/hr IVPB DAILY [facility]; Protocol Last Admin: 12/27/18 09:40 Dose: 100 mls/hr Lidocaine (Lidoderm Patch -) 1 patch TP DAILY [facility] Last Admin: 12/27/18 09:41 Dose: 1 patch Metoprolol Succinate (Toprol Xl -) 25 mg PO BID [facility] Last Admin: 12/27/18 21:19 Dose: 25 mg Miscellaneous (Lidoderm Patch Removal) 1 each MC DAILY@2200 [facility] Last Admin: 12/27/18 22:02 Dose: 1 each Nifedipine (Procardia Xl -) 30 mg PO HS [facility] Last Admin: 12/27/18 21:20 Dose: 30 mg Nystatin (Nystop Powder -) 1 applic TP BID [facility] Last Admin: 12/27/18 22:01 Dose: 1 applic Pantoprazole Sodium (Protonix -) 40 mg PO DAILY [facility] Last Admin: 12/27/18 09:41 Dose: 40 mg Tamsulosin HCl (Flomax -) 0.4 mg PO BID [facility] Last Admin: 12/27/18 21:20 Dose: 0.4 mg - Objective Vital Signs: Vital Signs Temperature 97.9 F 12/28/18 06:00 Pulse Rate 78 12/28/18 06:00 Respiratory Rate 18 12/28/18 06:00 Blood Pressure 135/62 12/28/18 06:00 O2 Sat by Pulse Oximetry (%) 99 12/28/18 06:00 Constitutional: Yes: Well Nourished, No Distress, Calm Eyes: Yes: WNL, Conjunctiva Clear, EOM Intact HENT: Yes: WNL, Atraumatic, Normocephalic Neck: Yes: WNL, Supple, Trachea Midline Cardiovascular: Yes: WNL, Regular Rate and Rhythm, Bradycardia Respiratory: Yes: WNL, Regular, Diminished (at bases BK) Gastrointestinal: Yes: WNL, Normal Bowel Sounds, Abdomen, Obese ...Rectal Exam: Yes: Deferred Genitourinary: Yes: WNL Musculoskeletal: Yes: Back Pain, Joint Stiffness, Joint Swelling (to right knee) Extremities: Yes: WNL Edema: LLE: 1+, RLE: 1+ Peripheral Pulses WNL: Yes Integumentary: Yes: WNL Neurological: Yes: WNL, Alert, Oriented ...Motor Strength: RLE (4/5, ambulating) Psychiatric: Yes: WNL, Alert, Oriented Labs: INR, PTT INR 1.37 (0.82-1.09) H 12/25/18 12:25 - ....Imaging Chest X-ray: Report Reviewed, Image Reviewed Cat Scan: Report Reviewed (Right LE: no fracture or hardware defect seen Head/ thoracic/cervical CT with no change pathology) Problem List - Problems (1) BRIT (acute kidney injury) Assessment/Plan: Cr 2.0 on admission, now 1.5 BRIT resolvong-back to baseline Cr Code(s): N17.9 - ACUTE KIDNEY FAILURE, UNSPECIFIED (2) Elevated brain natriuretic peptide (BNP) level Assessment/Plan: BNP remains elevated, level today pending continue lasix daily trend Scr and electrolytes on lasix Echo unremarkable-nml LV function, Mild TR, no MR cards recs appreciated Code(s): R79.89 - OTHER SPECIFIED ABNORMAL FINDINGS OF BLOOD CHEMISTRY (3) Prophylactic measure Assessment/Plan: OOB to chair ad emeka with assistance PPI daily Vitamin B12 daily maintain as in patient for pending rehab bed discharge planning Full code Code(s): Z29.9 - ENCOUNTER FOR PROPHYLACTIC MEASURES, UNSPECIFIED (4) UTI (urinary tract infection) Assessment/Plan: UCX w/ pansensitive E. Coli Continue ceftriaxone 1G daily trend temp curve and WBC Code(s): N39.0 - URINARY TRACT INFECTION, SITE NOT SPECIFIED Qualifiers: Urinary tract infection type: site unspecified Hematuria presence: without hematuria Qualified Code(s): N39.0 - Urinary tract infection, site not specified (5) BPH (benign prostatic hyperplasia) Assessment/Plan: continue home medication of flomax and advodart Code(s): N40.0 - BENIGN PROSTATIC HYPERPLASIA WITHOUT LOWER URINRY TRACT SYMP (6) CAD (coronary artery disease) Assessment/Plan: continue procardia XL 30mg daily continue metoprolol 25mg BID trend BP cardiac diet- Code(s): I25.10 - ATHSCL HEART DISEASE OF [place] CORONARY ARTERY W/O ANG PCTRS (7) HLD (hyperlipidemia) Assessment/Plan: continue home dose of atoervostatin ASA daily low cholesterol diet Code(s): E78.5 - HYPERLIPIDEMIA, UNSPECIFIED (8) HTN (hypertension) Assessment/Plan: continue metoprolol & procardia trend BP Code(s): I10 - ESSENTIAL (PRIMARY) HYPERTENSION (9) Sprain, knee Assessment/Plan: seen by Dr Keane, Ortho LCL sprain vs contusion vs fibular head fracture may apply heat and/or ice as needed walker for assistance ambulating Code(s): S83.90XA - SPRAIN OF UNSPECIFIED SITE OF UNSPECIFIED KNEE, INIT ENCNTR Qualifiers: Encounter type: initial encounter Involved ligament of knee: unspecified ligament Laterality: right Qualified Code(s): S83.91XA - Sprain of unspecified site of right knee, initial encounter (10) Osteoarthritis of right knee Assessment/Plan: pt being followed by orthopedics CT RLE no significant findings Daily PT APAP PRN pain lidoderm patch for pain to right knee Code(s): M17.9 - OSTEOARTHRITIS OF KNEE, UNSPECIFIED Qualifiers: Osteoarthritis type: primary Qualified Code(s): M17.11 - Unilateral primary osteoarthritis, right knee Visit type - Emergency Visit Emergency Visit: Yes ED Registration Date: 12/25/18 Care time: The patient presented to the Emergency Department on the above date and was hospitalized for further evaluation of their emergent condition. - New Patient This patient is new to me today: Yes Date on this admission: 12/28/18 - Critical Care Critical Care patient: No - Discharge Referral Referred to [facility] No
[2018-12-28 08:22] LABS: BILIRUBIN,TOTAL 0.8 mg/dl (0.2-1); CALCIUM 8.5 mg/dl (8.5-10); CREATININE 1.5 mg/dl (0.55-1.3); MAGNESIUM 1.9 mg/dL (1.8-2.4); POTASSIUM 3.8 mmol/L (3.5-5.1)
[2018-12-28] MEDS: FUROSEMIDE 40 MG TABLET (FP) PO SCH (10:04)
[2018-12-28] MEDS: TAMSULOSIN HCL 0.4 MG CAP PO SCH ×2 (10:04→22:11)
[2018-12-28] MEDS: PANTOPRAZOLE 40 MG TABLET (FP) PO SCH (10:04)
[2018-12-28] MEDS: NYSTATIN POWDER 100,000 UNITS/GM - 15 GM TOPICAL POWDER TP SCH ×2 (10:04→22:11)
[2018-12-28] MEDS: CYANOCOBALAMIN 1,000 MCG TABLET (FP) PO SCH (10:04)
[2018-12-28] MEDS: ASPIRIN COATED 81 MG TABLET.EC PO SCH (10:04)
[2018-12-28] MEDS: CEFTRIAXONE 1 G/50 ML PREMIX 50 ML IVPB SCH (10:05)
[2018-12-28] MEDS: LIDOCAINE 5% TOPICAL PATCH TP SCH (10:05)
[2018-12-28] MEDS: metoPROLOL SUCCINATE 25 MG TAB.SR.24H (FP) PO SCH ×2 (10:05→22:11)
[2018-12-28] MEDS: DUTASTERIDE 0.5 MG CAP (FP) PO SCH (10:06)
[2018-12-28] MEDS ORDERED: LIDOCAINE PATCH REMOVAL MC SCH (10:10)
--- NOTE | 2018-12-28 13:05 | PN ---
Progress Note (short form) - Note Progress Note: CT reviewed. No obvious fracture or hardware damage. Localized swelling and TTP over lateral knee likely due to contusion/sprain Agree with Lidocaine patch, physical therapy with [facility], discharge to rehab. F/u after 4 weeks of PT for reevaluation.
--- NOTE | 2018-12-28 14:47 | DS ---
Physical Exam: SUBJECTIVE: Patient seen and examined. Pending placement in short term inpatient rehab OBJECTIVE: Vital Signs Period Temp Pulse Resp BP Sys/Reis Pulse Ox Last 24 Hr 97.9 F-98.8 F 62-94 16-18 109-145/62-89 98-99 PHYSICAL EXAM GENERAL: The patient is awake, alert, and fully oriented, in no acute distress. HEAD: Normal with no signs of trauma. EYES: PERRL, extraocular movements intact, sclera anicteric, conjunctiva clear. ENT: Ears normal, nares patent, oropharynx clear without exudates, moist mucous membranes. NECK: Trachea midline, full range of motion, supple. LUNGS: Breath sounds equal, clear to auscultation bilaterally, no wheezes, no crackles, no accessory muscle use. HEART: Regular rate and rhythm, S1, S2 without murmur, rub or gallop. ABDOMEN: Soft, nontender, nondistended, normoactive bowel sounds, no guarding, no rebound, no hepatosplenomegaly, no masses. EXTREMITIES: 2+ pulses, warm, well-perfused, no edema. NEUROLOGICAL: Cranial nerves II through XII grossly intact. Normal speech, gait not observed. PSYCH: Normal mood, normal affect. SKIN: Warm, dry, normal turgor, no rashes or lesions noted. LABS Laboratory Results - last 24 hr 12/28/18 12/28/18 07:17 07:17 WBC 7.6 RBC 4.01 Hgb 12.6 Hct 38.0 MCV 94.7 MCH 31.3 MCHC 33.1 RDW 13.1 Plt Count 209 D MPV 9.0 Sodium 140 Potassium 3.8 Chloride 109 H Carbon Dioxide 23 Anion Gap 8 BUN 25.0 H Creatinine 1.5 H Est GFR (CKD-EPI)AfAm 51.31 Est GFR (CKD-EPI)NonAf 44.27 Random Glucose 100 Calcium 8.5 Magnesium 1.9 Total Bilirubin 0.8 AST 31 ALT 30 Alkaline Phosphatase 104 D B-Natriuretic Peptide 629.0 H Total Protein 6.0 L Albumin 3.0 L TSH 1.15 D HOSPITAL COURSE: Chief Complaint: lower back pain, right knee pain History of Present Illness: PCP: Dr. Lange Cardiology: Dr. Elliott Ortho: Dr. Keane HISTORY OF PRESENT ILLNESS: 78 year-old male with a PMH significant for HTN, HLD, CAD s/p stents x 2, PVD, recurrent UTIs, renal and ureteral calculi, and BPH. He has been feeling weak and fatigued prior to admission . Upon presentation to ED, patient felt pain in his mid-back. Has had cloudy urine, but denies urinary symptoms: no frequency , urgency, dysuria, or hematuria. Patient reports increasing SOB over the past month, TILLEY with walking just a few feet at home which is new for him. He has had swelling in his feet and ankles for several months. Patient has fallen three times in past month. He walks at baseline with a walker but his reports his gait has become increasingly unsteady. ER course was notable for: (1) WBC 11.4 (2) BUN/Cr 37/2.0 (3) 3+leuks, pyuria >100 WBCs (4) Ceftriaxone x 1; NS x 1L Constitutional: Yes: Well Nourished, No Distress, Calm Eyes: Yes: WNL, Conjunctiva Clear, EOM Intact HENT: Yes: WNL, Atraumatic, Normocephalic Neck: Yes: WNL, Supple, Trachea Midline Cardiovascular: Yes: WNL, Regular Rate and Rhythm, Bradycardia Respiratory: Yes: WNL, Regular, Diminished (at bases BK) Gastrointestinal: Yes: WNL, Normal Bowel Sounds, Abdomen, Obese ...Rectal Exam: Yes: Deferred Genitourinary: Yes: WNL Musculoskeletal: Yes: Back Pain, Joint Stiffness, Joint Swelling (to right knee) Extremities: Yes: WNL Edema: LLE: 1+, RLE: 1+ Peripheral Pulses WNL: Yes Integumentary: Yes: WNL Neurological: Yes: WNL, Alert, Oriented ...Motor Strength: RLE (4/5, ambulating) Psychiatric: Yes: WNL, Alert, Oriented Labs: - ....Imaging Chest X-ray: Report Reviewed, Image Reviewed Cat Scan: Report Reviewed (Right LE: no fracture or hardware defect seen Head/ thoracic/cervical CT with no change pathology) Problem List - Problems (1) BRIT (acute kidney injury) Assessment/Plan: Cr 2.0 on admission, now 1.5 BRIT resolvong-back to baseline Cr (2) Elevated brain natriuretic peptide (BNP) level Assessment/Plan: continue lasix daily Echo unremarkable-nml LV function, Mild TR, no MR (3) Prophylactic measure Assessment/Plan: OOB to chair ad emeka with assistance continue PPI daily continue Vitamin B12 daily (4) UTI (urinary tract infection) Assessment/Plan: UCX w/ pansensitive E. Coli Continue ceftriaxone 1G daily trend temp curve and WBC (5) BPH (benign prostatic hyperplasia) Assessment/Plan: continue home medication of flomax and advodart (6) CAD (coronary artery disease) Assessment/Plan: continue procardia XL 30mg daily continue metoprolol 25mg BID trend BP cardiac diet- (7) HLD (hyperlipidemia) Assessment/Plan: continue home dose of atoervostatin ASA daily low cholesterol diet (8) HTN (hypertension) Assessment/Plan: continue metoprolol & procardia (9) Osteoarthritis of right knee Assessment/Plan: pt being followed by orthopedics CT RLE no significant findings Daily PT APAP PRN pain lidoderm patch for pain to right knee Minutes to complete discharge: 30 Discharge Summary Reason For Visit: ACUTE KIDNEY INJURY AND UTI Current Active Problems BRIT (acute kidney injury) (Acute) Elevated brain natriuretic peptide (BNP) level (Acute) Prophylactic measure (Acute) UTI (urinary tract infection) (Acute) - Instructions Diet, Activity, Other Instructions: continue diabetic, cardiac diet Disposition: [facility] - Home Medications Comprehensive Discharge Medication List: Ambulatory Orders Cyanocobalamin (Vitamin B-12) [B-12] 1,000 mcg PO DAILY tablet 05/21/16 Multivitamin [Daily Vitamin Formula] 1 each PO DAILY tablet 05/21/16 Ascorbic Acid [Vitamin C -] 500 mg PO BID tablet 06/01/16 Aspirin [Aspirin EC] 81 mg PO DAILY 12/31/16 Nifedipine [Procardia Xl] 30 mg PO HS 12/31/16 Metoprolol Succinate 25 mg PO BID 02/06/18 Acetaminophen [Tylenol .Regular Strength -] 650 mg PO Q6H PRN tablet 02/10/18 Atorvastatin Ca [Lipitor] 40 mg PO HS 05/05/18 Dutasteride/Tamsulosin HCl [Dutasteride-Tamsulosin 0.5-0.4] 1 each PO HS Vit C/E/Zn/Coppr/Lutein/Zeaxan [Preservision Areds 2 Softgel] 1 each PO BID Dutasteride [Avodart] 0.5 mg PO DAILY cap 12/28/18 Furosemide [Lasix -] 40 mg PO DAILY 30 Days #30 tablet 12/28/18 Heparin - 5,000 unit SQ TID vial 12/28/18 Lidocaine 5% Patch [Lidoderm -] 1 patch TP DAILY 7 Days #14 patch 12/28/18 Nystatin Powder [Nystop Powder -] 1 applic TP BID applic 12/28/18 Problem List - Problems (1) BRIT (acute kidney injury) Code(s): N17.9 - ACUTE KIDNEY FAILURE, UNSPECIFIED (2) Elevated brain natriuretic peptide (BNP) level Code(s): R79.89 - OTHER SPECIFIED ABNORMAL FINDINGS OF BLOOD CHEMISTRY (3) Prophylactic measure Code(s): Z29.9 - ENCOUNTER FOR PROPHYLACTIC MEASURES, UNSPECIFIED (4) UTI (urinary tract infection) Code(s): N39.0 - URINARY TRACT INFECTION, SITE NOT SPECIFIED Qualifiers: Urinary tract infection type: site unspecified Hematuria presence: without hematuria Qualified Code(s): N39.0 - Urinary tract infection, site not specified (5) BPH (benign prostatic hyperplasia) Code(s): N40.0 - BENIGN PROSTATIC HYPERPLASIA WITHOUT LOWER URINRY TRACT SYMP (6) CAD (coronary artery disease) Code(s): I25.10 - ATHSCL HEART DISEASE OF [place] CORONARY ARTERY W/O ANG PCTRS (7) HLD (hyperlipidemia) Code(s): E78.5 - HYPERLIPIDEMIA, UNSPECIFIED (8) HTN (hypertension) Code(s): I10 - ESSENTIAL (PRIMARY) HYPERTENSION (9) Sprain, knee Code(s): S83.90XA - SPRAIN OF UNSPECIFIED SITE OF UNSPECIFIED KNEE, INIT ENCNTR Qualifiers: Encounter type: initial encounter Involved ligament of knee: unspecified ligament Laterality: right Qualified Code(s): S83.91XA - Sprain of unspecified site of right knee, initial encounter (10) Osteoarthritis of right knee Code(s): M17.9 - OSTEOARTHRITIS OF KNEE, UNSPECIFIED Qualifiers: Osteoarthritis type: primary Qualified Code(s): M17.11 - Unilateral primary osteoarthritis, right knee This patient is new to me today: Yes Date on this admission: 12/28/18 Emergency Visit: Yes ED Registration Date: 12/25/18 Care time: The patient presented to the Emergency Department on the above date and was hospitalized for further evaluation of their emergent condition. Critical Care patient: No - Discharge Referral Referred to [facility] No
[2018-12-28] MEDS: LIDOCAINE PATCH REMOVAL MC SCH (22:11)
[2018-12-28] MEDS: NIFEdipine E.R. 30 MG TABLET (FP) PO SCH (22:11)
[2018-12-28] MEDS: ATORVASTATIN CA 40 MG TABLET (FP) PO SCH (22:11)
[2018-12-29] MEDS: levoFLOXacin 750 MG TABLET PO SCH (06:37)
[2018-12-29] MEDS: HEPARIN NA (PORCINE) 5,000 UNITS/ML 1ML VIAL SQ SCH ×3 (06:38→21:18)
[2018-12-29 08:00] LABS: BASO % 0.6 % (0-2.0); HEMOGLOBIN 12.3 GM/dl (11.7-16.9); LYMPH % 28.3 % (8-40); MCH 31.3 pg (25.7-33.7); MCHC 33.2 g/dl (32.0-35.9); MEAN CELL VOLUME 94.3 fl (80-96); MEAN PLT VOLUME 8.3 fl (7.5-11.1); MONO % 9.9 % (3.8-10.2); NEUT % 57.2 % (42.8-82.8); PLATELET COUNT 204 K/MM3 (134-434); RBC 3.93 M/mm3 (4.00-5.60); RDW 13.2 % (11.9-15.9); WHITE BLOOD COUNT 7.6 K/mm3 (4.0-10.8)
[2018-12-29 08:04] LABS: ALBUMIN 2.8 g/dl (3.4-5.0); BILIRUBIN,TOTAL 0.6 mg/dl (0.2-1); CALCIUM 8.3 mg/dl (8.5-10); CREATININE 1.6 mg/dl (0.55-1.3); MAGNESIUM 1.8 mg/dL (1.8-2.4); POTASSIUM 3.7 mmol/L (3.5-5.1); TOT PROT 5.8 g/dl (6.4-8.2)
[2018-12-29] MEDS ORDERED: ACETAMINOPHEN 325 MG TABLET (FP) PO PRN (09:18)
--- NOTE | 2018-12-29 09:25 | PN ---
Progress Note, Physician Chief Complaint: C/O Rt LE Pian and swelling - Current Medication List Current Medications: Active Medications Acetaminophen (Tylenol -) 650 mg PO Q6H PRN PRN Reason: FEVER Ascorbic Acid (Vitamin C -) 500 mg PO BID [facility] Aspirin (Ecotrin -) 81 mg PO DAILY [facility] Last Admin: 12/28/18 10:04 Dose: 81 mg Atorvastatin Calcium (Lipitor -) 40 mg PO HS [facility] Last Admin: 12/28/18 22:11 Dose: 40 mg Cyanocobalamin (Vitamin B12 -) 1,000 mcg PO DAILY [facility] Last Admin: 12/28/18 10:04 Dose: 1,000 mcg Dutasteride (Avodart -) 0.5 mg PO DAILY [facility] Last Admin: 12/28/18 10:06 Dose: 0.5 mg Furosemide (Lasix -) 40 mg PO DAILY [facility] Last Admin: 12/28/18 10:04 Dose: 40 mg Heparin Sodium (Porcine) (Heparin -) 5,000 unit SQ TID [facility] Last Admin: 12/29/18 06:38 Dose: 5,000 unit Levofloxacin (Levaquin) 750 mg PO DAILY@0600 [facility] Last Admin: 12/29/18 06:37 Dose: 750 mg Lidocaine (Lidoderm Patch -) 1 patch TP DAILY [facility] Last Admin: 12/28/18 10:05 Dose: 1 patch Metoprolol Succinate (Toprol Xl -) 25 mg PO BID [facility] Last Admin: 12/28/18 22:11 Dose: 25 mg Miscellaneous (Lidoderm Patch Removal) 1 each MC DAILY@2200 [facility] Last Admin: 12/28/18 22:11 Dose: Not Given Multivitamins/Minerals/Vitamin C (Tab-A-Vit -) 1 tab PO DAILY [facility] Nifedipine (Procardia Xl -) 30 mg PO HS [facility] Last Admin: 12/28/18 22:11 Dose: 30 mg Non-Formulary Medication (Dutasteride/Tamsulosin Hcl [Dutasteride-Tamsulosin 0.5 -0.4]) 1 each PO HS [facility] Non-Formulary Medication (Vit C/E/Zn/Coppr/Lutein/Zeaxan [Preservision Areds 2 Softgel]) 1 each PO BID [facility] Nystatin (Nystop Powder -) 1 applic TP BID [facility] Last Admin: 12/28/18 22:11 Dose: 1 applic Pantoprazole Sodium (Protonix -) 40 mg PO DAILY [facility] Last Admin: 12/28/18 10:04 Dose: 40 mg Tamsulosin HCl (Flomax -) 0.4 mg PO BID [facility] Last Admin: 12/28/18 22:11 Dose: 0.4 mg - Objective Vital Signs: Vital Signs Temperature 98.0 F 12/29/18 06:00 Pulse Rate 77 12/29/18 06:00 Respiratory Rate 18 12/29/18 06:00 Blood Pressure 121/69 12/29/18 06:00 O2 Sat by Pulse Oximetry (%) 97 12/29/18 08:12 Elderly man not in distress C/O Rt calf pain and swelling HEENT: Mm moist, no anemia, PERRLA EOMI NECK: No JVD No Bruit CHEST: Minimal Basal Crept CVS: s1S2 R ABD: Obese, non tender BS + EXT:Mild spinal tenderness B/L Venous stasis changes Rt > Left with erythema PAPER SHEETER: AOX3 non focal Labs: CBC, BMP 12/29/18 07:13 12/29/18 07:13 INR, PTT INR 1.37 (0.82-1.09) H 12/25/18 12:25 Problem List - Problems (1) UTI (urinary tract infection) Assessment/Plan: [place] sensitive E colli on Po Levofloxacin afebrile TWBC is normal Code(s): N39.0 - URINARY TRACT INFECTION, SITE NOT SPECIFIED Qualifiers: Urinary tract infection type: site unspecified Hematuria presence: without hematuria Qualified Code(s): N39.0 - Urinary tract infection, site not specified (2) BRIT (acute kidney injury) Assessment/Plan: Improved with Hydration Code(s): N17.9 - ACUTE KIDNEY FAILURE, UNSPECIFIED (3) Bilateral kidney stones Assessment/Plan: Non obstructive asymptomatic Code(s): N20.0 - CALCULUS OF KIDNEY (4) BPH (benign prostatic hyperplasia) Assessment/Plan: Resume home meds Code(s): N40.0 - BENIGN PROSTATIC HYPERPLASIA WITHOUT LOWER URINRY TRACT SYMP (5) CAD (coronary artery disease) Assessment/Plan: Normal troponin leak but no new EKG changes resume home meds cleared by cardiology, ECHO normal EF Code(s): I25.10 - ATHSCL HEART DISEASE OF [place] CORONARY ARTERY W/O ANG PCTRS (6) Fall Assessment/Plan: Due to UTi mechanical , PT will be Dc to [facility] Code(s): W19.XXXA - UNSPECIFIED FALL, INITIAL ENCOUNTER Qualifiers: Encounter type: initial encounter Qualified Code(s): W19.XXXA - Unspecified fall, initial encounter (7) HTN (hypertension) Assessment/Plan: Well controlled Code(s): I10 - ESSENTIAL (PRIMARY) HYPERTENSION (8) HLD (hyperlipidemia) Assessment/Plan: on Statin Code(s): E78.5 - HYPERLIPIDEMIA, UNSPECIFIED (9) Right calf pain Assessment/Plan: most likely due to venous stasis considering risk factors will F/U DVT scan Code(s): M79.661 - PAIN IN RIGHT LOWER LEG
[2018-12-29] MEDS ORDERED: PATIENT'S OWN MEDICATION (NON-FORMULARY) (Vit C/E/Zn/Coppr/Lutein/Zeaxan [Preservision Are PO SCH (10:00)
[2018-12-29] MEDS: DUTASTERIDE 0.5 MG CAP (FP) PO SCH ×2 (10:07→21:18)
[2018-12-29] MEDS: ASPIRIN COATED 81 MG TABLET.EC PO SCH (10:07)
[2018-12-29] MEDS: PANTOPRAZOLE 40 MG TABLET (FP) PO SCH (10:07)
[2018-12-29] MEDS: TAMSULOSIN HCL 0.4 MG CAP PO SCH ×2 (10:07→21:18)
[2018-12-29] MEDS: CYANOCOBALAMIN 1,000 MCG TABLET (FP) PO SCH (10:07)
[2018-12-29] MEDS: FUROSEMIDE 40 MG TABLET (FP) PO SCH (10:07)
[2018-12-29] MEDS: metoPROLOL SUCCINATE 25 MG TAB.SR.24H (FP) PO SCH ×2 (10:08→21:20)
[2018-12-29] MEDS: ASCORBIC ACID 500 MG TABLET (FP) PO SCH ×3 (10:08→21:20)
[2018-12-29] MEDS: LIDOCAINE 5% TOPICAL PATCH TP SCH (10:10)
[2018-12-29] MEDS: MULTIVITAMINS (DAILY MVI) TABLET (FP) PO SCH ×2 (10:10→14:38)
[2018-12-29] MEDS: NYSTATIN POWDER 100,000 UNITS/GM - 15 GM TOPICAL POWDER TP SCH ×2 (10:10→21:19)
[2018-12-29] MEDS: LIDOCAINE PATCH REMOVAL MC SCH (21:19)
[2018-12-29] MEDS: NIFEdipine E.R. 30 MG TABLET (FP) PO SCH (21:19)
[2018-12-29] MEDS: ATORVASTATIN CA 40 MG TABLET (FP) PO SCH (21:19)
[2018-12-29] MEDS ORDERED: PATIENT'S OWN MEDICATION (NON-FORMULARY) (Dutasteride/Tamsulosin Hcl [Dutasteride-Tamsulos PO SCH (22:00)
[2018-12-30] MEDS: HEPARIN NA (PORCINE) 5,000 UNITS/ML 1ML VIAL SQ SCH ×3 (06:02→21:50)
[2018-12-30] MEDS: levoFLOXacin 750 MG TABLET PO SCH (06:04)
[2018-12-30] MEDS ORDERED: LOPERAMIDE HCL 2 MG CAPSULE PO PRN (06:46)
[2018-12-30 08:27] LABS: BASO % 0.6 % (0-2.0); EOS % 3.2 % (0-4.5); HEMOGLOBIN 12.1 GM/dl (11.7-16.9); LYMPH % 30.4 % (8-40); MCH 31.6 pg (25.7-33.7); MCHC 33.6 g/dl (32.0-35.9); MEAN CELL VOLUME 94.1 fl (80-96); MEAN PLT VOLUME 8.9 fl (7.5-11.1); MONO % 10.2 % (3.8-10.2); NEUT % 55.6 % (42.8-82.8); PLATELET COUNT 232 K/MM3 (134-434); RBC 3.82 M/mm3 (4.00-5.60); RDW 13.8 % (11.9-15.9); WHITE BLOOD COUNT 8.5 K/mm3 (4.0-10.8)
[2018-12-30 08:39] LABS: CALCIUM 8.4 mg/dl (8.5-10); CREATININE 1.5 mg/dl (0.55-1.3); POTASSIUM 3.7 mmol/L (3.5-5.1)
[2018-12-30] MEDS: LIDOCAINE 5% TOPICAL PATCH TP SCH (09:25)
[2018-12-30] MEDS: ASCORBIC ACID 500 MG TABLET (FP) PO SCH ×2 (09:25→21:51)
[2018-12-30] MEDS: metoPROLOL SUCCINATE 25 MG TAB.SR.24H (FP) PO SCH ×2 (09:26→21:51)
[2018-12-30] MEDS: PANTOPRAZOLE 40 MG TABLET (FP) PO SCH (09:26)
[2018-12-30] MEDS: FUROSEMIDE 40 MG TABLET (FP) PO SCH (09:26)
[2018-12-30] MEDS: CYANOCOBALAMIN 1,000 MCG TABLET (FP) PO SCH (09:27)
[2018-12-30] MEDS: MULTIVITAMINS (DAILY MVI) TABLET (FP) PO SCH (09:27)
[2018-12-30] MEDS: ASPIRIN COATED 81 MG TABLET.EC PO SCH (09:27)
[2018-12-30] MEDS: NYSTATIN POWDER 100,000 UNITS/GM - 15 GM TOPICAL POWDER TP SCH ×2 (09:43→22:19)
--- NOTE | 2018-12-30 12:14 | PN ---
Physical Exam: SUBJECTIVE: Patient seen and examined oob to chair. Reports over the past two days, each time he has ambulated in the hallway he had to devries to the bathroom and had a lot of gas and loose stool. This has occurred once each day. No other BMs. Patient has same experience at home, walking stimulates him to have a BM. No fever, sweats, chills. No abdominal pain or cramping. No blood in stool or urine. OBJECTIVE: Vital Signs Period Temp Pulse Resp BP Sys/Reis Pulse Ox Last 24 Hr 98 F-98.7 F 64-98 17-19 129-160/53-89 97-99 GENERAL: Awake, alert, and fully oriented, in no acute distress. LUNGS: Breath sounds equal, clear to auscultation bilaterally. No wheezes, and no crackles. No accessory muscle use. HEART: RRR, S1, S2 ABDOMEN: Soft, nontender, not distended UPPER EXTREMITIES: 2+ pulses, warm, well-perfused. No cyanosis. No clubbing. No peripheral edema. LOWER EXTREMITIES: 1+ pulses, warm, well-perfused. No calf tenderness. 2+ bilateral pedal and ankle edema, no change from several days ago; mild venous stasis changes bilaterally; Right knee: well-healed surgical scar, mild swelling , tenderness, no warmth, no erythema NEUROLOGICAL: Cranial nerves II-XII intact. Normal speech. Able to stand without assistance but weak. Laboratory Results - last 24 hr 12/30/18 12/30/18 06:57 06:57 WBC 8.5 RBC 3.82 L Hgb 12.1 Hct 36.0 MCV 94.1 MCH 31.6 MCHC 33.6 RDW 13.8 Plt Count 232 MPV 8.9 Absolute Neuts (auto) 4.6 Neutrophils % 55.6 Lymphocytes % 30.4 Monocytes % 10.2 Eosinophils % 3.2 Basophils % 0.6 Sodium 140 Potassium 3.7 Chloride 108 H Carbon Dioxide 24 Anion Gap 8 BUN 26.0 H Creatinine 1.5 H Est GFR (CKD-EPI)AfAm 51.31 Est GFR (CKD-EPI)NonAf 44.27 Random Glucose 87 Calcium 8.4 L Active Medications Generic Name Dose Route Start Last Admin Trade Name Freq PRN Reason Stop Dose Admin Acetaminophen 650 mg 12/29/18 09:18 Tylenol - PO Q6H PRN FEVER Ascorbic Acid 500 mg 12/29/18 10:00 12/30/18 09:25 Vitamin C - PO 500 mg BID VELVET Administration Aspirin 81 mg 12/26/18 10:00 12/30/18 09:27 Ecotrin - PO 81 mg DAILY VELVET Administration Atorvastatin Calcium 40 mg 12/25/18 22:00 12/29/18 21:19 Lipitor - PO 40 mg HS VELVET Administration Cyanocobalamin 1,000 mcg 12/26/18 10:00 12/30/18 09:27 Vitamin B12 - PO 1,000 mcg DAILY VELVET Administration Dutasteride 0.5 mg 12/29/18 22:00 12/29/18 21:18 Avodart - PO 0.5 mg HS VELVET Administration Furosemide 40 mg 12/28/18 10:00 12/30/18 09:26 Lasix - PO 40 mg DAILY VELVET Administration Heparin Sodium (Porcine) 5,000 unit 12/25/18 22:00 12/30/18 06:02 Heparin - SQ 5,000 unit TID VELVET Administration Levofloxacin 750 mg 12/29/18 06:00 12/30/18 06:04 Levaquin PO 750 mg DAILY@0600 VELVET Administration Lidocaine 1 patch 12/26/18 10:00 12/30/18 09:25 Lidoderm Patch - TP 1 patch DAILY VELVET Administration Loperamide HCl 2 mg 12/30/18 06:46 12/30/18 08:12 Imodium - PO 2 mg Q8H PRN Administration DIARRHEA Metoprolol Succinate 25 mg 12/25/18 22:00 12/30/18 09:26 Toprol Xl - PO 25 mg BID VELVET Administration Miscellaneous 1 each 12/28/18 22:00 12/29/18 21:19 Lidoderm Patch Removal MC 1 each DAILY@2200 [facility] Administration Multivitamins/Minerals/Vitamin C 1 tab 12/29/18 10:00 12/30/18 09:27 Tab-A-Vit - PO 1 tab DAILY VELVET Administration Nifedipine 30 mg 12/25/18 22:00 12/29/18 21:19 Procardia Xl - PO 30 mg HS VELVET Administration Non-Formulary Medication 1 each 12/29/18 10:00 12/29/18 10:09 Vit C/E/Zn/Coppr/Lutein/Zeaxan [Preservision Areds 2 Softgel] PO Not Given BID [facility] Nystatin 1 applic 12/25/18 22:00 12/30/18 09:43 Nystop Powder - TP 1 applic BID VELVET Administration Pantoprazole Sodium 40 mg 12/26/18 10:00 12/30/18 09:26 Protonix - PO 40 mg DAILY VELVET Administration Tamsulosin HCl 0.4 mg 12/29/18 22:00 12/29/18 21:18 Flomax - PO 0.4 mg HS VELVET Administration ASSESSMENT/PLAN: 78 year-old male with a PMH significant for HTN, HLD, CAD s/p stents x 2, PVD, recurrent UTIs, renal calculi, and BPH. Admitted for UTI and BRIT. E. coli UTI, complicated --afebrile, no leukocytosis --ceftriaxone x 4 doses; switched to PO levofloxacin (day #2); will treat total 10 days BRIT --Cr 2.0 on admission, 1.5 today, baseline 1.0 --hold lasix Diastolic heart failure, newly diagnosed --12/26 Echo: LV normal, Grade I diastolic dysfunction; RV normal; mild TR --lasix started 12/27; appears euvolemic, no change in chronic lower extremity edema, lungs are clear, no respiratory compromise, but Cr remains elevated --d/c standing lasix, continue PRN Hypertension --BP elevated --continue Toprol XL, nifedipine Hyperlipidemia --continue Lipitor Coronary artery disease --continue ASA, Toprol XL, Lipitor Peripheral vascular disease --continue ASA, statin BPH --continue avodart, flomax GERD --continue Protonix Right knee pain s/p partial replacement --CT negative for fracture, other acute process --seen and evaluated by ortho Dr. Keane, no surgical intervention FEN Fluids: PO intake adequate Electrolytes: replete as indicated Nutrition: low sodium DVT prophylaxis: subq heparin Physical therapy Dispo: continues to require inpatient care. Waiting insurance approval for Chirag Song. Full code. : Ivanna Mcgrath RN. . Visit type - Emergency Visit Emergency Visit: Yes ED Registration Date: 12/25/18 Care time: The patient presented to the Emergency Department on the above date and was hospitalized for further evaluation of their emergent condition. - New Patient This patient is new to me today: No - Critical Care Critical Care patient: No
[2018-12-30] MEDS: DUTASTERIDE 0.5 MG CAP (FP) PO SCH (21:50)
[2018-12-30] MEDS: TAMSULOSIN HCL 0.4 MG CAP PO SCH (21:50)
[2018-12-30] MEDS: ATORVASTATIN CA 40 MG TABLET (FP) PO SCH (21:51)
[2018-12-30] MEDS: NIFEdipine E.R. 30 MG TABLET (FP) PO SCH (21:51)
[2018-12-30] MEDS: LIDOCAINE PATCH REMOVAL MC SCH (22:19)
[2018-12-31] MEDS: HEPARIN NA (PORCINE) 5,000 UNITS/ML 1ML VIAL SQ SCH ×3 (06:12→21:33)
[2018-12-31] MEDS: levoFLOXacin 750 MG TABLET PO SCH (06:12)
[2018-12-31] MEDS: MULTIVITAMINS (DAILY MVI) TABLET (FP) PO SCH (09:30)
[2018-12-31] MEDS: ASCORBIC ACID 500 MG TABLET (FP) PO SCH ×2 (09:30→21:34)
[2018-12-31] MEDS: ASPIRIN COATED 81 MG TABLET.EC PO SCH (09:31)
[2018-12-31] MEDS: LIDOCAINE 5% TOPICAL PATCH TP SCH (09:32)
[2018-12-31] MEDS: PANTOPRAZOLE 40 MG TABLET (FP) PO SCH (09:32)
[2018-12-31] MEDS: metoPROLOL SUCCINATE 25 MG TAB.SR.24H (FP) PO SCH ×2 (09:32→21:33)
[2018-12-31] MEDS: NYSTATIN POWDER 100,000 UNITS/GM - 15 GM TOPICAL POWDER TP SCH ×2 (09:33→21:34)
[2018-12-31] MEDS ORDERED: FUROSEMIDE 40 MG TABLET (FP) PO SCH (10:00)
--- NOTE | 2018-12-31 11:19 | PN ---
Physical Exam: SUBJECTIVE: Patient seen and examined. Voices same complaint about chronic right knee pain. OBJECTIVE: Vital Signs Period Temp Pulse Resp BP Sys/Reis Pulse Ox Last 24 Hr 97.9 F-99.3 F 67-94 17-20 118-146/72-83 97-98 GENERAL: Awake, alert, and fully oriented, in no acute distress. LUNGS: Breath sounds equal, clear to auscultation bilaterally. No wheezes, and no crackles. No accessory muscle use. HEART: RRR, S1, S2 ABDOMEN: Soft, nontender, not distended UPPER EXTREMITIES: 2+ pulses, warm, well-perfused. No cyanosis. No clubbing. No peripheral edema. LOWER EXTREMITIES: 1+ pulses, warm, well-perfused. No calf tenderness. 2+ bilateral pedal and ankle edema, baseline; mild venous stasis changes bilaterally; Right knee: well-healed surgical scar, mild swelling, tenderness, no warmth, no erythema, no change NEUROLOGICAL: Cranial nerves II-XII intact. Normal speech. Active Medications Generic Name Dose Route Start Last Admin Trade Name Freq PRN Reason Stop Dose Admin Acetaminophen 650 mg 12/29/18 09:18 Tylenol - PO Q6H PRN FEVER Ascorbic Acid 500 mg 12/29/18 10:00 12/31/18 09:30 Vitamin C - PO 500 mg BID VELVET Administration Aspirin 81 mg 12/26/18 10:00 12/31/18 09:31 Ecotrin - PO 81 mg DAILY VELVET Administration Atorvastatin Calcium 40 mg 12/25/18 22:00 12/30/18 21:51 Lipitor - PO 40 mg HS VELVET Administration Cyanocobalamin 1,000 mcg 12/26/18 10:00 12/30/18 09:27 Vitamin B12 - PO 1,000 mcg DAILY [facility]ELVET Administration Dutasteride 0.5 mg 12/29/18 22:00 12/30/18 21:50 Avodart - PO 0.5 mg HS VELVET Administration Heparin Sodium (Porcine) 5,000 unit 12/25/18 22:00 12/31/18 06:12 Heparin - SQ 5,000 unit TID VELVET Administration Levofloxacin 750 mg 12/29/18 06:00 12/31/18 06:12 Levaquin PO 750 mg DAILY@0600 [facility] Administration Lidocaine 1 patch 12/26/18 10:00 12/31/18 09:32 Lidoderm Patch - TP 1 patch DAILY [facility]EL[facility]ET Administration Metoprolol Succinate 25 mg 12/25/18 22:00 12/31/18 09:32 Toprol Xl - PO 25 mg BID VELVET Administration Miscellaneous 1 each 12/28/18 22:00 12/30/18 22:19 Lidoderm Patch Removal MC 1 each DAILY@2200 [facility] Administration Multivitamins/Minerals/Vitamin C 1 tab 12/29/18 10:00 12/31/18 09:30 Tab-A-Vit - PO 1 tab DAILY [facility]ELVET Administration Nifedipine 30 mg 12/25/18 22:00 12/30/18 21:51 Procardia Xl - PO 30 mg HS VELVET Administration Non-Formulary Medication 1 each 12/29/18 10:00 12/29/18 10:09 Vit C/E/Zn/Coppr/Lutein/Zeaxan [Preservision Areds 2 Softgel] PO Not Given BID VELVET Nystatin 1 applic 12/25/18 22:00 12/31/18 09:33 Nystop Powder - TP Not Given BID VELVET Pantoprazole Sodium 40 mg 12/26/18 10:00 12/31/18 09:32 Protonix - PO 40 mg DAILY VELVET Administration Tamsulosin HCl 0.4 mg 12/29/18 22:00 12/30/18 21:50 Flomax - PO 0.4 mg HS VELVET Administration ASSESSMENT/PLAN 78 year-old male with a PMH significant for HTN, HLD, CAD s/p stents x 2, PVD, recurrent UTIs, renal calculi, and BPH. Admitted for UTI and BRIT. E. coli UTI, complicated --afebrile, no leukocytosis --ceftriaxone x 4 doses; switched to PO levofloxacin (day #3); will treat total 10 days BRIT --Cr 2.0 on admission, baseline 1.0 --bmp pending Diastolic heart failure, newly diagnosed --12/26 Echo: LV normal, Grade I diastolic dysfunction; RV normal; mild TR --appears euvolemic, no change in chronic lower extremity edema, lungs are clear, no respiratory compromise --lasix PRN Hypertension --BP elevated --continue Toprol XL, nifedipine Hyperlipidemia --continue Lipitor Coronary artery disease --continue ASA, Toprol XL, Lipitor Peripheral vascular disease --continue ASA, statin BPH --continue Avodart, Flomax GERD --continue Protonix Right knee pain s/p partial replacement --CT negative for fracture, other acute process --seen and evaluated by ortho Dr. Keane, no surgical intervention FEN Fluids: PO intake adequate Electrolytes: replete as indicated Nutrition: low sodium DVT prophylaxis: subq heparin Physical therapy Dispo: continues to require inpatient care. Waiting insurance approval for Chirag Song. Full code. : Ivanna Mcgrath RN. . Visit type - Emergency Visit Emergency Visit: Yes ED Registration Date: 12/25/18 Care time: The patient presented to the Emergency Department on the above date and was hospitalized for further evaluation of their emergent condition. - New Patient This patient is new to me today: No - Critical Care Critical Care patient: No
[2018-12-31] MEDS: CYANOCOBALAMIN 1,000 MCG TABLET (FP) PO SCH (12:03)
[2018-12-31 15:59] LABS: CALCIUM 8.3 mg/dl (8.5-10); CREATININE 1.7 mg/dl (0.55-1.3); POTASSIUM 4.1 mmol/L (3.5-5.1)
[2018-12-31] MEDS: ATORVASTATIN CA 40 MG TABLET (FP) PO SCH (21:33)
[2018-12-31] MEDS: DUTASTERIDE 0.5 MG CAP (FP) PO SCH (21:33)
[2018-12-31] MEDS: LOPERAMIDE HCL 2 MG CAPSULE PO PRN (21:33)
[2018-12-31] MEDS: TAMSULOSIN HCL 0.4 MG CAP PO SCH (21:33)
[2018-12-31] MEDS: NIFEdipine E.R. 30 MG TABLET (FP) PO SCH (21:33)
[2018-12-31] MEDS: LIDOCAINE PATCH REMOVAL MC SCH (21:34)
[2018-12-31] MEDS ORDERED: NITROGLYCERIN SUBLINGUAL 1/150 0.4 MG TAB SL PRN (22:06)
--- NOTE | 2019-01-01 05:40 | DS ---
Physical Exam: SUBJECTIVE: Patient seen and examined at bedside. OBJECTIVE: Vital Signs Period Temp Pulse Resp BP Sys/Reis Pulse Ox Last 24 Hr 98.0 F-98.9 F 57-89 16-20 126-146/79-80 98-98 PHYSICAL EXAM GENERAL: Awake, alert, and fully oriented, in no acute distress. LUNGS: Breath sounds equal, clear to auscultation bilaterally. No wheezes, and no crackles. No accessory muscle use. HEART: RRR, S1, S2 ABDOMEN: Soft, nontender, not distended UPPER EXTREMITIES: 2+ pulses, warm, well-perfused. No cyanosis. No clubbing. No peripheral edema. LOWER EXTREMITIES: 1+ pulses, warm, well-perfused. No calf tenderness. 2+ bilateral pedal and ankle edema, baseline; mild venous stasis changes bilaterally; Right knee: well-healed surgical scar NEUROLOGICAL: Cranial nerves II-XII intact. Normal speech. SKIN: Warm, dry, normal turgor, no rashes or lesions noted. LABS Laboratory Results - last 24 hr 12/31/18 15:35 Sodium 141 Potassium 4.1 Chloride 106 Carbon Dioxide 24 Anion Gap 11 BUN 27.0 H Creatinine 1.7 H Est GFR (CKD-EPI)AfAm 44.10 Est GFR (CKD-EPI)NonAf 38.05 Random Glucose 109 H Calcium 8.3 L HOSPITAL COURSE: Date of Admission:12/25/18 Date of Discharge: 01/01/19 Pre hospital course 78 year-old male with a PMH significant for HTN, HLD, CAD s/p stents x 2, PVD, recurrent UTIs, renal and ureteral calculi, and BPH. He has been feeling weak and fatigued for the past couple days. When he feels this way, he usually has a urinary tract infection. Patient has taken three doses of amoxicillin thus far. Early this morning around 2 or 3 am, patient started ambulating with his walker to a chair but fell backwards and hit the back of his head. Denies loss of consciousness, nausea, or vomiting. Did not feel any acute symptoms and decided not to present to the ED immediately. This morning, patient felt pain in his mid -back. Has had cloudy urine, but denies urinary symptoms: no frequency, urgency , dysuria, or hematuria. Patient reports increasing SOB over the past month, TILLEY with walking just a few feet at home which is new for him. He has had swelling in his feet and ankles for several months. Patient has fallen three times in past month. He walks at baseline with a walker but his reports his gait has become increasingly unsteady. ER course (1) WBC 11.4 (2) BUN/Cr 37/2.0 (3) 3+leuks, pyuria >100 WBCs (4) Ceftriaxone x 1; NS x 1L Subsequent hospital course 78 year-old male with a PMH significant for HTN, HLD, CAD s/p stents x 2, PVD, recurrent UTIs, renal calculi, and BPH. Admitted for UTI and BRIT. E. coli UTI, complicated --afebrile, no leukocytosis --ceftriaxone x 4 doses; switched to PO levofloxacin x 4 doses; treat total 10 days BRIT --Cr 2.0 on admission, trended down but remained elevated ~1.5-->1.7; may be new baseline --needs outpatient followup Diastolic heart failure, newly diagnosed --12/26 Echo: LV normal, Grade I diastolic dysfunction; RV normal; mild TR --appears euvolemic, no change in chronic lower extremity edema, lungs are clear, no respiratory compromise --lasix PRN Hypertension --BP elevated --continued Toprol XL, nifedipine Hyperlipidemia --continued Lipitor Coronary artery disease --continued ASA, Toprol XL, Lipitor Peripheral vascular disease --continued ASA, statin BPH --continued Avodart, Flomax GERD --continued Protonix Right knee pain s/p partial replacement --CT negative for fracture, other acute process --seen and evaluated by ortho Dr. Keane, no surgical intervention Minutes to complete discharge: 35 Discharge Summary Reason For Visit: ACUTE KIDNEY INJURY AND UTI Current Active Problems BRIT (acute kidney injury) (Acute) Elevated brain natriuretic peptide (BNP) level (Acute) Prophylactic measure (Acute) Right calf pain (Acute) UTI (urinary tract infection) (Acute) Condition: Improved - Instructions Diet, Activity, Other Instructions: Patient to receive levofloxacin PO 750mg daily x 2 days starting 01/02/19. This will complete 10 days of antibiotic treatment for E. coli UTI. Patient should have labs drawn within 72 hours to check renal function. Patient was newly diagnosed with diastolic dysfunction during this hospitalization. He is not on Lasix at this time but should be re-evaluated by your medical provider. Disposition: ALF FACILITY - Home Medications Comprehensive Discharge Medication List: Ambulatory Orders Cyanocobalamin (Vitamin B-12) [B-12] 1,000 mcg PO DAILY tablet 05/21/16 Multivitamin [Daily Vitamin Formula] 1 each PO DAILY tablet 05/21/16 Ascorbic Acid [Vitamin C -] 500 mg PO BID tablet 06/01/16 Aspirin [Aspirin EC] 81 mg PO DAILY 12/31/16 Nifedipine [Procardia Xl] 30 mg PO HS 12/31/16 Metoprolol Succinate 25 mg PO BID 02/06/18 Acetaminophen [Tylenol .Regular Strength -] 650 mg PO Q6H PRN tablet 02/10/18 Atorvastatin Ca [Lipitor] 40 mg PO HS 05/05/18 Dutasteride/Tamsulosin HCl [Dutasteride-Tamsulosin 0.5-0.4] 1 each PO HS Vit C/E/Zn/Coppr/Lutein/Zeaxan [Preservision Areds 2 Softgel] 1 each PO BID Dutasteride [Avodart] 0.5 mg PO DAILY cap 12/28/18 Furosemide [Lasix -] 40 mg PO DAILY 30 Days #30 tablet 12/28/18 Heparin - 5,000 unit SQ TID vial 12/28/18 Lidocaine 5% Patch [Lidoderm -] 1 patch TP DAILY 7 Days #14 patch 12/28/18 Nystatin Powder [Nystop Powder -] 1 applic TP BID applic 12/28/18 levoFLOXacin [Levaquin] 750 mg PO DAILY tab 12/28/18 This patient is new to me today: No Emergency Visit: Yes ED Registration Date: 12/25/18 Care time: The patient presented to the Emergency Department on the above date and was hospitalized for further evaluation of their emergent condition. Critical Care patient: No - Discharge Referral Referred to [id number] No
[2019-01-01] MEDS: levoFLOXacin 750 MG TABLET PO SCH ×2 (05:41→05:48)
[2019-01-01] MEDS: HEPARIN NA (PORCINE) 5,000 UNITS/ML 1ML VIAL SQ SCH (05:41)
[2019-01-01 06:50] VITALS: BP 133/72; PULSE 71; TEMP 98.4
[2019-01-01] MEDS: ASCORBIC ACID 500 MG TABLET (FP) PO SCH (09:27)
[2019-01-01] MEDS: MULTIVITAMINS (DAILY MVI) TABLET (FP) PO SCH (09:27)
[2019-01-01] MEDS: PANTOPRAZOLE 40 MG TABLET (FP) PO SCH (09:27)
[2019-01-01] MEDS: LOPERAMIDE HCL 2 MG CAPSULE PO PRN (09:28)
[2019-01-01] MEDS: ASPIRIN COATED 81 MG TABLET.EC PO SCH (09:28)
[2019-01-01] MEDS: CYANOCOBALAMIN 1,000 MCG TABLET (FP) PO SCH (09:29)
[2019-01-01] MEDS: LIDOCAINE 5% TOPICAL PATCH TP SCH (09:29)
[2019-01-01] MEDS: NYSTATIN POWDER 100,000 UNITS/GM - 15 GM TOPICAL POWDER TP SCH (09:29)
[2019-01-01] MEDS: metoPROLOL SUCCINATE 25 MG TAB.SR.24H (FP) PO SCH (09:30)
== END 2019-01-01 13:03 | DRG 683 ==
LOC: FER 11:14 → SUPCPDRO 11:14 → FM/S 14:49
PROVIDERS: ATTEND Nurse Practitioner Acute Care
DX: N17.9 Acute kidney failure, unspecified (principal); N20.2 Calculus of kidney with calculus of ureter; N39.0 Urinary tract infection, site not specified; I50.30 Unspecified diastolic (congestive) heart failure; I11.0 Hypertensive heart disease with heart failure; E78.5 Hyperlipidemia, unspecified; I73.9 Peripheral vascular disease, unspecified; D64.9 Anemia, unspecified; K21.9 Gastro-esophageal reflux disease without esophagitis; E53.8 Deficiency of other specified B group vitamins; I25.10 Atherosclerotic heart disease of native coronary artery without angina pectoris; N40.0 Benign prostatic hyperplasia without lower urinary tract symptoms; M25.561 Pain in right knee; B96.20 Unspecified Escherichia coli [E. coli] as the cause of diseases classified elsewhere; M79.661 Pain in right lower leg; I71.2 Thoracic aortic aneurysm, without rupture; W18.39XA Other fall on same level, initial encounter; Y92.098 Other place in other non-institutional residence as the place of occurrence of the external cause; N31.9 Neuromuscular dysfunction of bladder, unspecified; R42 Dizziness and giddiness; R79.89 Other specified abnormal findings of blood chemistry; M17.11 Unilateral primary osteoarthritis, right knee; E66.9 Obesity, unspecified; Z68.32 Body mass index [BMI] 32.0-32.9, adult; Z95.5 Presence of coronary angioplasty implant and graft
CPT/HCPCS: 36415; 70450-TC; 71045-TC-FY; 72125-TC; 72128-TC; 73560-TC-RT-FY; 73700-TC-RT; 80048; 80053; 81003; 81015; 82565; 83735; 83880; 84100; 84300; 84443; 84484; 85025; 85027; 85610; 85730; 87040; 87086; 87186; 93005; 93306-TC; 93970-TC; 97116-GP; 97162-GP; 99285-25; J1644; J7030

== ENCOUNTER 2019-04-14 19:33 | Inpatient (IN) | payer OTHER ==
[2019-04-14] MEDS ORDERED: SODIUM CHLORIDE 0.9% 500 ML INFUS.BAG IV ONE (20:01)
[2019-04-14 20:13] LABS: BASO % 0.6 % (0-2.0); EOS % 1.3 % (0-4.5); HEMATOCRIT 41.1 % (35.4-49); HEMOGLOBIN 13.9 GM/dl (11.7-16.9); LYMPH % 25.3 % (8-40); MCH 31.8 pg (25.7-33.7); MCHC 33.9 g/dl (32.0-35.9); MEAN CELL VOLUME 93.8 fl (80-96); MEAN PLT VOLUME 10.4 fl (7.5-11.1); MONO % 7.3 % (3.8-10.2); NEUT % 65.5 % (42.8-82.8); PLATELET COUNT 178 K/MM3 (134-434); RBC 4.38 M/mm3 (4.00-5.60)
[2019-04-14 20:19] LABS: ALBUMIN 3.6 g/dl (3.4-5.0); BILIRUBIN,TOTAL 1.1 mg/dl (0.2-1); CALCIUM 8.6 mg/dl (8.5-10); CREATININE 1.6 mg/dl (0.55-1.3); POTASSIUM 3.6 mmol/L (3.5-5.1); TOT PROT 6.5 g/dl (6.4-8.2)
--- NOTE | 2019-04-14 20:54 | PDOC ---
Documentation entered by Alexa Beauchamp SCRIBE, acting as scribe for Rosario Desir MD. Rosario Desir MD: This documentation has been prepared by the Quynh baez Adrianna, SCRIBE, under my direction and personally reviewed by me in its entirety. I confirm that the documentation accurately reflects all work, treatment, procedures, and medical decision making performed by me. History of Present Illness - General Chief Complaint: Weakness Stated Complaint: WEAKNESS/HYPOTENSION Time Seen by Provider: 04/14/19 19:39 History Source: Patient, Family Exam Limitations: No Limitations - History of Present Illness Initial Comments: The patient is a 78 year old male, with PMH of HTN, HLD, CAD s/p stents x2, BPH , PVD, UTIs, kidney stones, diastolic heart failure, and GERD, presenting with diaphoresis, weakness and hypotension prior to arrival. Patient notes he was sitting and eating greek food ~20 minutes prior to arrival, when he suddenly felt flushed, clammy, and weak. His measured his blood pressure, and was found to be in the 90s systolic (baseline is typically 140s). Patient notes he could not get out of his chair, so they called an ambulance. His notes his urine has been turbid, dark, and cloudy over the past two days, following his completion of a 10 day dose of Macrobid for recent UTI per his primary doctor. Patient reports some associated urinary leaking and frequency in the last several days. Although his symptoms are seemingly resolving in the ED, patient notes he does not feel he is 100% back to himself. notes the last presentation of similar symptoms was when the patient was uroseptic. Denies fever, chest pain, SOB, palpitation, dizziness, N, V, D, abdominal pain, dysuria, hematuria, bowel problems, leg swelling, rash, cough, runny nose, sore throat. Allergies: None Past Medical History: as documented in EMR/HPI Social history: Lives with family. No tobacco, ETOH or drug use. Surgical history: Abdominal hernia repair, stent x2, kyphoplasty Meds: as documented in EMR Family history: noncontributory PMD: Dr. Lange Saxophone Player: Dr. Elliott Orthopedics: Dr. Keane 04/14/19 21:24 Past History - Past Medical History Allergies/Adverse Reactions: Allergies Allergy/AdvReac Type Severity Reaction Status Date / Time No Known Drug Allergies Allergy Verified 12/25/18 11:15 Home Medications: Ambulatory Orders Cyanocobalamin (Vitamin B-12) [B-12] 1,000 mcg PO DAILY tablet 05/21/16 Multivitamin [Daily Vitamin Formula] 1 each PO DAILY tablet 05/21/16 Ascorbic Acid [Vitamin C -] 500 mg PO BID tablet 06/01/16 Aspirin [Aspirin EC] 81 mg PO DAILY 12/31/16 Nifedipine [Procardia Xl] 30 mg PO HS 12/31/16 Acetaminophen [Tylenol .Regular Strength -] 650 mg PO Q6H PRN tablet 02/10/18 Atorvastatin Ca [Lipitor] 40 mg PO HS 05/05/18 Vit C/E/Zn/Coppr/Lutein/Zeaxan [Preservision Areds 2 Softgel] 1 each PO BID Dutasteride [Avodart] 0.5 mg PO DAILY cap 12/28/18 Flomax - 0.4 mg PO BID 04/09/19 Lasix - 10 mg PO DAILY 04/09/19 Metoprolol Succinate [Toprol Xl -] 25 mg PO BID 04/09/19 Diclofenac Sodium/Misoprostol [Diclofenac-Misoprost 75-0.2 Tb] 1 each PO BID Anemia: No Asthma: No Cancer: No Cardiac Disorders: No CVA: No COPD: No CHF: No Dementia: No Diabetes: No GI Disorders: Yes (RECTAL BLEEDING 2012) Disorders: Yes (multiple stones) HTN: Yes Hypercholesterolemia: Yes Kidney Stones: Yes Liver Disease: No Seizures: No Thyroid Disease: No - Surgical History Abdominal Surgery: Yes (HERNIA REPAIR 25 YRS AGO) Appendectomy: No Cardiac Surgery: Yes (2017 X2 STENT) Cholecystectomy: No Lung Surgery: No Neurologic Surgery: No Orthopedic Surgery: Yes (KYPHOPLASTY) - Psycho Social/Smoking Cessation Hx Smoking Status: No Smoking History: Never smoked Have you smoked in the past 12 months: No Number of Cigarettes Smoked Daily: 0 Hx Alcohol Use: No Drug/Substance Use Hx: No Substance Use Type: None Hx Substance Use Treatment: No Review of Systems - Review of Systems Comments:: Constitutional: +Generalized weakness. +Diaphoretic. +Warm. +Hypotensive. no chills. HEENT: no headache or dizziness. No congestion. No visual/hearing disturbances. CVS: no cp or syncope. Resp: no sob. No cough. Gastrointestinal: no abdominal pain, nausea or vomiting. Genitourinary: +Urinary leaking. +Urinary frequency. no dysuria or hematuria. MUSCULOSKELETAL: No joint pain and swelling. No neck or back pain. SKIN: no redness or skin changes, no discharge, no rash. No wounds. Hematologic: no easy bruising/bleeding. NEUROLOGIC: No headache, dizziness, LOC or altered mental status. No weakness, numbness or tingling. Psych: no anxiety or depression Allergic/Immunologic: no allergies All other systems reviewed and negative, or as documented in HPI. *Physical Exam - Vital Signs Last Vital Signs Temp Pulse Resp BP Pulse Ox 97.9 F 82 16 124/64 100 04/14/19 19:37 04/14/19 19:37 04/14/19 19:37 04/14/19 19:37 04/14/19 19:37 - Physical Exam Comments: General: Well appearing, awake and alert, NAD. HEENT: NCAT, PERRL, EOMI, clear conjunctiva, anicteric, moist mucus membranes, clear oropharynx, no oral lesions.. Neck: neck supple, FROM Resp: CTAB, normal and even respirations, no respiratory distress CVS: RRR, no murmurs, 2+ peripheral pulses throughout, no peripheral edema Abdomen: soft, NTND, no rebound or guarding. No CVAT. Back: nontender, normal inspection and ROM MSK: no edema, PRETTY x4, ROM intact. No clubbing or cyanosis. normal bulk and tone. Extremities: +Compression stockings in place. no calf tenderness Neuro: alert, oriented appropriately; no focal neurologic deficits Psych: Calm and cooperative Skin: +Cool skin, moist to touch. +Diaphoretic along the back. warm and well perfused, cap refill <2 sec Heart Score/ECG Review #1 ECG reviewed & interpreted by me at: 20:00 General ECG Interpretation: Sinus Rhythm, Normal Rate, Normal Intervals Compared to previous ECG there are: No significant change 04/14/19 20:54 EKG normal sinus rhythm at 87 bpm, Prolonged QT interval. narrow QRS, ST and T wave segments and morphology normal. Nonspecific T wave abnormalities ED Treatment Course - LABORATORY CBC & Chemistry Diagram: 04/14/19 20:00 04/14/19 20:00 - ADDITIONAL ORDERS Additional order review: Laboratory Results 04/14/19 04/14/19 04/14/19 20:35 20:00 20:00 Sodium 141 Potassium 3.6 Chloride 108 H Carbon Dioxide 24 Anion Gap 9 BUN 22.0 H Creatinine 1.6 H Est GFR (CKD-EPI)AfAm 47.46 Est GFR (CKD-EPI)NonAf 40.95 Random Glucose 115 H Calcium 8.6 Total Bilirubin 1.1 H AST 19 ALT 25 Alkaline Phosphatase 89 Creatine Kinase 41 Troponin I < 0.03 Total Protein 6.5 Albumin 3.6 Urine Color Yellow Urine Appearance Cloudy Urine pH 5.5 Urine Protein Trace Urine Glucose (UA) Negative Urine Ketones Negative Urine Blood 1+ H Urine Nitrite Negative Urine Bilirubin Negative Urine Urobilinogen 0.2 Ur Leukocyte Esterase 1+ 04/14/19 20:00 RBC 4.38 MCV 93.8 MCHC 33.9 RDW 14.0 MPV 10.4 D Neutrophils % 65.5 Lymphocytes % 25.3 Monocytes % 7.3 Eosinophils % 1.3 Basophils % 0.6 - RADIOLOGY Radiology Studies Ordered: Category Date Time Status CHEST X-RAY PORTABLE* [RAD] Stat Radiology 04/14/19 20:28 Ordered - Medications Given in the ED: ED Medications Discontinued Medications Generic Name Dose Route Start Last Admin Trade Name Freq PRN Reason Stop Dose Admin Sodium Chloride 500 ml 04/14/19 20:01 04/14/19 20:17 Normal Saline - IV 04/14/19 20:02 500 ml ONCE ONE Administration Medical Decision Making - Medical Decision Making 04/14/19 20:53 See HPI for details. Prior notes reviewed, including admissions, discharges and consultations. Vital signs reviewed, initially soft BP, normalized Vital Signs Temp Pulse Resp BP Pulse Ox 97.9 F 82 16 124/64 100 04/14/19 19:37 04/14/19 19:37 04/14/19 19:37 04/14/19 19:37 04/14/19 19:37 BP normalizing here, no acute symptoms. laboratory results and imaging reviewed, basic labs and lytes wnl, notable for + leukocytosis 12K UA_prelim indicative of UTI with +leuk esterase and WBCs >40-60- f/u cultures. prior cultures reviewed, relatively de leon sensitive with common organisms CXR_no acute chest pathology Cardiac panel_neg trop, reassuring EKG normal sinus rhythm at 87 bpm, Prolonged QT interval. narrow QRS, ST and T wave segments and morphology normal. Nonspecific T wave abnormalities ED course -interventions: IV ceftriaxone for UTI, 500cc NSS. Dr Lange courtesy call, spoke with Dr Means - agree with plan admit for UTI, hypotension and medical management, gentle fluids, abx and f/u cultures admitting to hospitalist group. s/o to ALAN Nazario, admitting to Dr Ga pt and family made aware of impression and plan, agreeable. 04/14/19 21:25 04/14/19 21:27 04/14/19 21:42 Discharge - Discharge Information Problems reviewed: Yes Clinical Impression/Diagnosis: Hypotension UTI (urinary tract infection) Qualifiers: Urinary tract infection type: site unspecified Hematuria presence: with hematuria Qualified Code(s): N39.0 - Urinary tract infection, site not specified Condition: Stable - Admission Yes - Follow up/Referral Referrals: Ramy Lange MD [Primary Care Provider] - - Patient Discharge Instructions - Post Discharge Activity
[2019-04-14 20:59] LABS: EPITHELIAL CELLS FEW /hpf
[2019-04-14] MEDS ORDERED: CEFTRIAXONE 1,000 MG in DEXTROSE 5%-WATER - 50 ML IVPB ONE (21:23)
[2019-04-14] MEDS ORDERED: cefTRIAXone SODIUM 1 GM VIAL ONE (21:36)
[2019-04-14] MEDS ORDERED: ACETAMINOPHEN 325 MG TABLET (FP) PO PRN (21:44)
[2019-04-14] MEDS ORDERED: SODIUM CHLORIDE 1,000 ML IV SCH (21:45)
[2019-04-14] MEDS ORDERED: PATIENT'S OWN MEDICATION (NON-FORMULARY) (Diclofenac Sodium/Misoprostol [Diclofenac-Misopr PO SCH (22:00)
[2019-04-14] MEDS ORDERED: ATORVASTATIN CA 40 MG TABLET (FP) PO SCH (22:00)
[2019-04-14] MEDS ORDERED: NIFEdipine E.R. 30 MG TABLET (FP) PO SCH (22:00)
[2019-04-14] MEDS ORDERED: DUTASTERIDE 0.5 MG CAP (FP) PO SCH (22:00)
[2019-04-14 22:26] VITALS: BMI 33.1
[2019-04-14] MEDS ORDERED: REFRIGERATED ANITBIOTICS ONE (22:55)
[2019-04-14] MEDS ORDERED: TAMSULOSIN HCL 0.4 MG CAP PO STA (22:57)
[2019-04-14] MEDS: metoPROLOL SUCCINATE 25 MG TAB.SR.24H (FP) PO SCH (23:05)
[2019-04-14] MEDS: HEPARIN NA (PORCINE) 5,000 UNITS/ML 1ML VIAL SQ SCH (23:06)
[2019-04-14] MEDS: ASCORBIC ACID 500 MG TABLET (FP) PO SCH (23:06)
--- NOTE | 2019-04-14 23:16 | HP ---
CHIEF COMPLAINT:UTI PCP:Anisa Cardio: Dr. Nick HISTORY OF PRESENT ILLNESS: The patient is a 78 year old male, with PMH of HTN, HLD, CAD s/p stents x2, BPH , PVD, UTIs, kidney stones, diastolic heart failure, and GERD, presenting with diaphoresis, weakness and hypotension prior to arrival. Patient noted he was sitting and eating [place]i food ~20 minutes prior to arrival, when he suddenly felt flushed, clammy, and weak. His , measured his blood pressure, and was found to be in the 90s systolic (baseline is typically 140s). pt recently completed macrobid few days ago for UTI, ER course was notable for: (1)WBC 12 (2)Lactic 2.1 (3)+UA Recent Travel: PAST MEDICAL HISTORY: HTN, HLD, CAD s/p stents x2, BPH, PVD, UTIs, kidney stones, diastolic heart failure, and GERD, PAST SURGICAL HISTORY: Abdominal hernia repair, stent x2, kyphoplasty Social History: Smoking:denies Alcohol:denies Drugs: denies Allergies No Known Drug Allergies Allergy (Verified 12/25/18 11:15) HOME MEDICATIONS: Home Medications Medication Instructions Recorded Cyanocobalamin (Vitamin B-12) 1,000 mcg PO DAILY tablet 05/21/16 [B-12] Multivitamin [Daily Vitamin 1 each PO DAILY tablet 05/21/16 Formula] Ascorbic Acid [Vitamin C -] 500 mg PO BID tablet 06/01/16 Aspirin [Aspirin EC] 81 mg PO DAILY 12/31/16 Nifedipine [Procardia Xl] 30 mg PO HS 12/31/16 Acetaminophen [Tylenol .Regular 650 mg PO Q6H PRN tablet 02/10/18 Strength -] Atorvastatin Ca [Lipitor] 40 mg PO HS 05/05/18 Vit C/E/Zn/Coppr/Lutein/Zeaxan 1 each PO BID 05/05/18 [Preservision Areds 2 Softgel] Dutasteride [Avodart] 0.5 mg PO DAILY cap 12/28/18 Flomax - 0.4 mg PO BID 04/09/19 Lasix - 10 mg PO DAILY 04/09/19 Metoprolol Succinate [Toprol Xl -] 25 mg PO BID 04/09/19 Diclofenac Sodium/Misoprostol 1 each PO BID 04/14/19 [Diclofenac-Misoprost 75-0.2 Tb] REVIEW OF SYSTEMS CONSTITUTIONAL: Generalized weakness Absent: fever, chills, diaphoresis, malaise, loss of appetite, weight change HEENT: Absent: rhinorrhea, nasal congestion, throat pain, throat swelling, difficulty swallowing, mouth swelling, ear pain, eye pain, visual changes CARDIOVASCULAR: Absent: chest pain, syncope, palpitations, irregular heart rate, lightheadedness , peripheral edema RESPIRATORY: Absent: cough, shortness of breath, dyspnea with exertion, orthopnea, wheezing, stridor, hemoptysis GASTROINTESTINAL: Absent: abdominal pain, abdominal distension, nausea, vomiting, diarrhea, constipation, melena, hematochezia GENITOURINARY: +urinary frequency Absent: dysuria, , urgency, hesitancy, hematuria, flank pain, genital pain MUSCULOSKELETAL: Absent: myalgia, arthralgia, joint swelling, back pain, neck pain SKIN: Absent: rash, itching, pallor HEMATOLOGIC/IMMUNOLOGIC: Absent: easy bleeding, easy bruising, lymphadenopathy, frequent infections ENDOCRINE: Absent: unexplained weight gain, unexplained weight loss, heat intolerance, cold intolerance NEUROLOGIC: Absent: headache, focal weakness or paresthesias, dizziness, unsteady gait, seizure, mental status changes, bladder or bowel incontinence PSYCHIATRIC: Absent: anxiety, depression, suicidal or homicidal ideation, hallucinations. PHYSICAL EXAMINATION Vital Signs - 24 hr 04/14/19 04/14/19 04/14/19 19:37 21:30 22:06 Temperature 97.9 F 98.7 F Pulse Rate 82 87 Pulse Rate [ 82 Apical] Respiratory 16 18 Rate Blood Pressure 124/64 136/81 Blood Pressure 121/81 [Arm] O2 Sat by Pulse 100 99 Oximetry (%) GENERAL: Awake, alert, and fully oriented, in no acute distress. HEAD: Normal with no signs of trauma. EYES: Pupils equal, round and reactive to light, extraocular movements intact, sclera anicteric, conjunctiva clear. No lid lag. EARS, NOSE, THROAT: Ears normal, nares patent, oropharynx clear without exudates. Moist mucous membranes. NECK: Normal range of motion, supple without lymphadenopathy, JVD, or masses. LUNGS: Breath sounds equal, clear to auscultation bilaterally. No wheezes, and no crackles. No accessory muscle use. HEART: Regular rate and rhythm, normal S1 and S2 without murmur, rub or gallop. ABDOMEN: Soft, nontender, not distended, normoactive bowel sounds, no guarding, no rebound, no masses. No hepatomegaly or splenomegaly. MUSCULOSKELETAL: Normal range of motion at all joints. No bony deformities or tenderness. No CVA tenderness. UPPER EXTREMITIES: 2+ pulses, warm, well-perfused. No cyanosis. No clubbing. No peripheral edema. LOWER EXTREMITIES: 2+ pulses, warm, well-perfused. No calf tenderness. No peripheral edema. NEUROLOGICAL: Cranial nerves II-XII intact. Normal speech. Normal gait. PSYCHIATRIC: Cooperative. Good eye contact. Appropriate mood and affect. SKIN: Warm, dry, normal turgor, no rashes or lesions noted, normal capillary refill. Laboratory Results - last 24 hr 04/14/19 04/14/19 04/14/19 20:00 20:00 20:00 WBC 12.0 H RBC 4.38 Hgb 13.9 Hct 41.1 MCV 93.8 MCH 31.8 MCHC 33.9 RDW 14.0 Plt Count 178 D MPV 10.4 D Absolute Neuts (auto) 7.8 Neutrophils % 65.5 Lymphocytes % 25.3 Monocytes % 7.3 Eosinophils % 1.3 Basophils % 0.6 Sodium 141 Potassium 3.6 Chloride 108 H Carbon Dioxide 24 Anion Gap 9 BUN 22.0 H Creatinine 1.6 H Est GFR (CKD-EPI)AfAm 47.46 Est GFR (CKD-EPI)NonAf 40.95 Random Glucose 115 H Lactic Acid Calcium 8.6 Total Bilirubin 1.1 H AST 19 ALT 25 Alkaline Phosphatase 89 Creatine Kinase 41 Troponin I < 0.03 Total Protein 6.5 Albumin 3.6 Urine Color Urine Appearance Urine pH Urine Protein Urine Glucose (UA) Urine Ketones Urine Blood Urine Nitrite Urine Bilirubin Urine Urobilinogen Ur Leukocyte Esterase Urine RBC Urine WBC Ur Transition Epith Cell Urine Bacteria 04/14/19 04/14/19 20:35 20:35 WBC RBC Hgb Hct MCV MCH MCHC RDW Plt Count MPV Absolute Neuts (auto) Neutrophils % Lymphocytes % Monocytes % Eosinophils % Basophils % Sodium Potassium Chloride Carbon Dioxide Anion Gap BUN Creatinine Est GFR (CKD-EPI)AfAm Est GFR (CKD-EPI)NonAf Random Glucose Lactic Acid 2.1 H Calcium Total Bilirubin AST ALT Alkaline Phosphatase Creatine Kinase Troponin I Total Protein Albumin Urine Color Yellow Urine Appearance Cloudy Urine pH 5.5 Urine Protein Trace Urine Glucose (UA) Negative Urine Ketones Negative Urine Blood 1+ H Urine Nitrite Negative Urine Bilirubin Negative Urine Urobilinogen 0.2 Ur Leukocyte Esterase 1+ Urine RBC 10-20 Urine WBC 40-60 Ur Transition Epith Cell Few Urine Bacteria Few ASSESSMENT/PLAN: Yonathan Abdalla is a 78 yr old M, medical condition 78 year old male, with PMH of HTN, HLD, CAD s/p stents x2, BPH, PVD, UTIs, kidney stones, diastolic heart failure, and GERD Admitting Diagnosis UTI failed outpt tx Chronic Condition HTN HLD CAD s/p stents BPH CHF, Diastolic GERD A/P: #UTI-failed outpt tx -IVF-gentle hydration-monitor for fluid overload -Can DC in AM -IV rocephin -Blood, urine cx pending -lactic 2.1, will repeat in AM #BRIT -IVF -baseline 1.0 -monitor CMP #HTN #HLD #CAD s/p stent x2 -CHF, diastolic, chronic -c/w asa, procardia, metoprolol XL,statin -hypotension improved -on lasix 10mg po -daily weights -EKG NSR pronlonged QT interval -Echo unremarkable-nml LV function, Mild TR, no MR (01/03) #BPH -c/w flomax, avodart #GERD-stable Full Code FEN Fluids: PO intake adequate Electrolytes: replete as indicated Nutrition: low sodium Visit type - Emergency Visit Emergency Visit: Yes ED Registration Date: 04/14/19 Care time: The patient presented to the Emergency Department on the above date and was hospitalized for further evaluation of their emergent condition. - New Patient This patient is new to me today: Yes Date on this admission: 04/14/19 - Critical Care Critical Care patient: No
[2019-04-15] MEDS ORDERED: TAMSULOSIN HCL 0.4 MG CAP PO SCH (08:30)
[2019-04-15 09:00] LABS: BILIRUBIN,TOTAL 0.8 mg/dl (0.2-1); CALCIUM 8.2 mg/dl (8.5-10); CREATININE 1.5 mg/dl (0.55-1.3); MAGNESIUM 1.9 mg/dL (1.8-2.4); POTASSIUM 3.8 mmol/L (3.5-5.1); TOT PROT 5.5 g/dl (6.4-8.2)
[2019-04-15 09:06] LABS: HEMATOCRIT 34.7 % (35.4-49); HEMOGLOBIN 12.1 GM/dl (11.7-16.9); MCH 32.5 pg (25.7-33.7); MCHC 34.8 g/dl (32.0-35.9); MEAN CELL VOLUME 93.5 fl (80-96); MEAN PLT VOLUME 9.8 fl (7.5-11.1); PLATELET COUNT 130 K/MM3 (134-434); RBC 3.71 M/mm3 (4.00-5.60); RDW 14.4 % (11.9-15.9); WHITE BLOOD COUNT 9.5 K/mm3 (4.0-10.8)
[2019-04-15] MEDS: HEPARIN NA (PORCINE) 5,000 UNITS/ML 1ML VIAL SQ SCH (09:07)
[2019-04-15] MEDS: ASCORBIC ACID 500 MG TABLET (FP) PO SCH (09:07)
[2019-04-15] MEDS: metoPROLOL SUCCINATE 25 MG TAB.SR.24H (FP) PO SCH (09:07)
--- NOTE | 2019-04-15 09:14 | PN ---
Physical Exam: SUBJECTIVE: Patient seen and examined OBJECTIVE: Vital Signs Period Temp Pulse Resp BP Sys/Reis Pulse Ox Last 24 Hr 97.9 F-98.7 F 63-87 16-19 121-141/64-81 97-100 GENERAL: The patient is awake, alert, and fully oriented, in no acute distress. HEAD: Normal with no signs of trauma. EYES: PERRL, extraocular movements intact, sclera anicteric, conjunctiva clear. No ptosis. ENT: Ears normal, nares patent, oropharynx clear without exudates, moist mucous membranes. NECK: Trachea midline, full range of motion, supple. LUNGS: Breath sounds equal, clear to auscultation bilaterally, no wheezes, no crackles, no accessory muscle use. HEART: Regular rate and rhythm, S1, S2 without murmur, rub or gallop. ABDOMEN: Soft, nontender, nondistended, normoactive bowel sounds, no guarding, no rebound, no hepatosplenomegaly, no masses. EXTREMITIES: 2+ pulses, warm, well-perfused, no edema. NEUROLOGICAL: Cranial nerves II through XII grossly intact. Normal speech, gait not observed. PSYCH: Normal mood, normal affect. SKIN: Warm, dry, normal turgor, no rashes or lesions noted Laboratory Results - last 24 hr 04/14/19 04/14/19 04/14/19 20:00 20:00 20:00 WBC 12.0 H RBC 4.38 Hgb 13.9 Hct 41.1 MCV 93.8 MCH 31.8 MCHC 33.9 RDW 14.0 Plt Count 178 D MPV 10.4 D Absolute Neuts (auto) 7.8 Neutrophils % 65.5 Lymphocytes % 25.3 Monocytes % 7.3 Eosinophils % 1.3 Basophils % 0.6 Sodium 141 Potassium 3.6 Chloride 108 H Carbon Dioxide 24 Anion Gap 9 BUN 22.0 H Creatinine 1.6 H Est GFR (CKD-EPI)AfAm 47.46 Est GFR (CKD-EPI)NonAf 40.95 Random Glucose 115 H Lactic Acid Calcium 8.6 Magnesium Total Bilirubin 1.1 H AST 19 ALT 25 Alkaline Phosphatase 89 Creatine Kinase 41 Troponin I < 0.03 Total Protein 6.5 Albumin 3.6 Urine Color Urine Appearance Urine pH Urine Protein Urine Glucose (UA) Urine Ketones Urine Blood Urine Nitrite Urine Bilirubin Urine Urobilinogen Ur Leukocyte Esterase Urine RBC Urine WBC Ur Transition Epith Cell Urine Bacteria 04/14/19 04/14/19 04/15/19 20:35 20:35 06:00 WBC RBC Hgb Hct MCV MCH MCHC RDW Plt Count MPV Absolute Neuts (auto) Neutrophils % Lymphocytes % Monocytes % Eosinophils % Basophils % Sodium 143 Potassium 3.8 Chloride 108 H Carbon Dioxide 26 Anion Gap 9 BUN 22.0 H Creatinine 1.5 H Est GFR (CKD-EPI)AfAm 51.31 Est GFR (CKD-EPI)NonAf 44.27 Random Glucose 90 Lactic Acid 2.1 H Calcium 8.2 L Magnesium 1.9 Total Bilirubin 0.8 AST 16 ALT 22 Alkaline Phosphatase 79 D Creatine Kinase Troponin I Total Protein 5.5 L Albumin 3.0 L Urine Color Yellow Urine Appearance Cloudy Urine pH 5.5 Urine Protein Trace Urine Glucose (UA) Negative Urine Ketones Negative Urine Blood 1+ H Urine Nitrite Negative Urine Bilirubin Negative Urine Urobilinogen 0.2 Ur Leukocyte Esterase 1+ Urine RBC 10-20 Urine WBC 40-60 Ur Transition Epith Cell Few Urine Bacteria Few Active Medications Generic Name Dose Route Start Last Admin Trade Name Freq PRN Reason Stop Dose Admin Acetaminophen 650 mg 04/14/19 21:44 Tylenol - PO Q6H PRN FEVER Ascorbic Acid 500 mg 04/14/19 22:00 04/15/19 09:07 Vitamin C - PO 500 mg BID VELVET Administration Aspirin 162 mg 04/15/19 10:00 04/15/19 09:07 Ecotrin - PO 162 mg DAILY VELVET Administration Atorvastatin Calcium 40 mg 04/14/19 22:00 04/14/19 23:05 Lipitor - PO 40 mg HS VELVET Administration Dutasteride 0.5 mg 04/14/19 22:00 04/14/19 23:17 Avodart - PO 0.5 mg HS VELVET Administration Furosemide 10 mg 04/15/19 10:00 04/15/19 09:07 Lasix - PO 10 mg DAILY VELVET Administration Heparin Sodium (Porcine) 5,000 unit 04/14/19 22:00 04/15/19 09:07 Heparin - SQ 5,000 unit BID VELVET Administration Ceftriaxone Sodium 1 gm/ 100 mls @ 200 mls/hr 04/15/19 10:00 Dextrose IVPB DAILY [facility] Protocol Metoprolol Succinate 25 mg 04/14/19 22:00 04/15/19 09:07 Toprol Xl - PO 25 mg BID VELVET Administration Multivitamins/Minerals/Vitamin C 1 tab 04/15/19 10:00 04/15/19 09:07 Tab-A-Vit - PO 1 tab DAILY V[facility]VET Administration Nifedipine 30 mg 04/14/19 22:00 04/14/19 23:06 Procardia Xl - PO 30 mg HS VELVET Administration Non-Formulary Medication 1 each 04/14/19 22:00 Diclofenac Sodium/Misoprostol [Diclofenac-Misoprost 75-0.2 Tb] PO BID VELVET Pantoprazole Sodium 40 mg 04/15/19 10:00 04/15/19 09:07 Protonix - PO 40 mg DAILY VELVET Administration Tamsulosin HCl 0.4 mg 04/15/19 08:30 04/15/19 09:07 Flomax - PO 0.4 mg Q12H VELVET Administration ASSESSMENT/PLAN: Yonathan Abdalla is a 78 yr old M, medical condition 78 year old male, with PMH of HTN, HLD, CAD s/p stents x2, BPH, PVD, UTIs, kidney stones, diastolic heart failure, and GERD Admitting Diagnosis UTI failed outpt tx Chronic Condition HTN HLD CAD s/p stents BPH CHF, Diastolic GERD A/P: #UTI-failed outpt tx -IVF-gentle hydration-monitor for fluid overload -Can DC in AM -IV rocephin -Blood, urine cx pending -lactic 2.1, will repeat in AM #BRIT -IVF -baseline 1.0 -monitor CMP #HTN #HLD #CAD s/p stent x2 -CHF, diastolic, chronic -c/w asa, procardia, metoprolol XL,statin -hypotension improved -on lasix 10mg po -daily weights -EKG NSR pronlonged QT interval -Echo unremarkable-nml LV function, Mild TR, no MR (01/03) #BPH -c/w flomax, avodart #GERD-stable Full Code FEN Fluids: PO intake adequate Electrolytes: replete as indicated Nutrition: low sodium
[2019-04-15] MEDS ORDERED: MULTIVITAMINS (DAILY MVI) TABLET (FP) PO SCH (10:00)
[2019-04-15] MEDS ORDERED: FUROSEMIDE PO SCH (10:00)
[2019-04-15] MEDS ORDERED: CEFTRIAXONE 1 GM in DEXTROSE 5%-WATER 100 ML IVPB SCH (10:00)
[2019-04-15] MEDS ORDERED: DUTASTERIDE 0.5 MG CAP (FP) PO SCH (10:00)
[2019-04-15] MEDS ORDERED: FUROSEMIDE 20 MG TABLET (FP) PO SCH (10:00)
[2019-04-15] MEDS ORDERED: PANTOPRAZOLE 40 MG TABLET (FP) PO SCH (10:00)
[2019-04-15] MEDS ORDERED: ASPIRIN COATED 81 MG TABLET.EC PO SCH (10:00)
[2019-04-15 10:09] VITALS: BP 121/63; PULSE 80; TEMP 97.7
--- NOTE | 2019-04-15 11:39 | DS ---
Physical Exam: HISTORY OF PRESENT ILLNESS: The patient is a 78 year old male, with PMH of HTN, HLD, CAD s/p stents x2, BPH , PVD, UTIs, kidney stones, diastolic heart failure, and GERD, presenting with diaphoresis, weakness and hypotension prior to arrival. Patient noted he was sitting and eating sinhala food ~20 minutes prior to arrival, when he suddenly felt flushed, clammy, and weak. His , measured his blood pressure, and was found to be in the 90s systolic (baseline is typically 140s). pt recently completed macrobid few days ago for UTI, ER course was notable for: (1)WBC 12 (2)Lactic 2.1 (3)+UA SUBJECTIVE: Patient seen and examined. No signs or symptoms of distress. OBJECTIVE: Vital Signs Period Temp Pulse Resp BP Sys/Reis Pulse Ox Last 24 Hr 97.7 F-98.7 F 63-87 16-19 121-141/63-81 97-100 PHYSICAL EXAM GENERAL: The patient is awake, alert, and fully oriented, in no acute distress. HEAD: Normal with no signs of trauma. EYES: PERRL, extraocular movements intact, sclera anicteric, conjunctiva clear. ENT: Ears normal, nares patent, oropharynx clear without exudates, moist mucous membranes. NECK: Trachea midline, full range of motion, supple. LUNGS: Breath sounds equal, clear to auscultation bilaterally, no wheezes, no crackles, no accessory muscle use. HEART: Regular rate and rhythm, S1, S2 ABDOMEN: obese, Soft, nontender, nondistended, normoactive bowel sounds, no guarding, no rebound, no hepatosplenomegaly, no masses. EXTREMITIES: 2+ pulses, warm, well-perfused, no edema. NEUROLOGICAL: Cranial nerves II through XII grossly intact. Normal speech, gait not observed. PSYCH: Normal mood, normal affect. SKIN: Warm, dry, normal turgor, no rashes or lesions noted. LABS Laboratory Results - last 24 hr 04/14/19 04/14/19 04/14/19 20:00 20:00 20:00 WBC 12.0 H RBC 4.38 Hgb 13.9 Hct 41.1 MCV 93.8 MCH 31.8 MCHC 33.9 RDW 14.0 Plt Count 178 D MPV 10.4 D Absolute Neuts (auto) 7.8 Neutrophils % 65.5 Lymphocytes % 25.3 Monocytes % 7.3 Eosinophils % 1.3 Basophils % 0.6 Sodium 141 Potassium 3.6 Chloride 108 H Carbon Dioxide 24 Anion Gap 9 BUN 22.0 H Creatinine 1.6 H Est GFR (CKD-EPI)AfAm 47.46 Est GFR (CKD-EPI)NonAf 40.95 Random Glucose 115 H Lactic Acid Calcium 8.6 Magnesium Total Bilirubin 1.1 H AST 19 ALT 25 Alkaline Phosphatase 89 Creatine Kinase 41 Troponin I < 0.03 B-Natriuretic Peptide Total Protein 6.5 Albumin 3.6 Urine Color Urine Appearance Urine pH Urine Protein Urine Glucose (UA) Urine Ketones Urine Blood Urine Nitrite Urine Bilirubin Urine Urobilinogen Ur Leukocyte Esterase Urine RBC Urine WBC Ur Transition Epith Cell Urine Bacteria 04/14/19 04/14/19 04/15/19 20:35 20:35 06:00 WBC 9.5 RBC 3.71 L Hgb 12.1 Hct 34.7 L D MCV 93.5 MCH 32.5 MCHC 34.8 RDW 14.4 Plt Count 130 L D MPV 9.8 Absolute Neuts (auto) Neutrophils % Lymphocytes % Monocytes % Eosinophils % Basophils % Sodium Potassium Chloride Carbon Dioxide Anion Gap BUN Creatinine Est GFR (CKD-EPI)AfAm Est GFR (CKD-EPI)NonAf Random Glucose Lactic Acid 2.1 H Calcium Magnesium Total Bilirubin AST ALT Alkaline Phosphatase Creatine Kinase Troponin I B-Natriuretic Peptide Total Protein Albumin Urine Color Yellow Urine Appearance Cloudy Urine pH 5.5 Urine Protein Trace Urine Glucose (UA) Negative Urine Ketones Negative Urine Blood 1+ H Urine Nitrite Negative Urine Bilirubin Negative Urine Urobilinogen 0.2 Ur Leukocyte Esterase 1+ Urine RBC 10-20 Urine WBC 40-60 Ur Transition Epith Cell Few Urine Bacteria Few 04/15/19 04/15/19 04/15/19 06:00 09:36 09:40 WBC RBC Hgb Hct MCV MCH MCHC RDW Plt Count MPV Absolute Neuts (auto) Neutrophils % Lymphocytes % Monocytes % Eosinophils % Basophils % Sodium 143 Potassium 3.8 Chloride 108 H Carbon Dioxide 26 Anion Gap 9 BUN 22.0 H Creatinine 1.5 H Est GFR (CKD-EPI)AfAm 51.31 Est GFR (CKD-EPI)NonAf 44.27 Random Glucose 90 Lactic Acid 1.6 Calcium 8.2 L Magnesium 1.9 Total Bilirubin 0.8 AST 16 ALT 22 Alkaline Phosphatase 79 D Creatine Kinase Troponin I B-Natriuretic Peptide 627.4 H Total Protein 5.5 L Albumin 3.0 L Urine Color Urine Appearance Urine pH Urine Protein Urine Glucose (UA) Urine Ketones Urine Blood Urine Nitrite Urine Bilirubin Urine Urobilinogen Ur Leukocyte Esterase Urine RBC Urine WBC Ur Transition Epith Cell Urine Bacteria HOSPITAL COURSE: Date of Admission:04/14/19 Yonathan Abdalla is a 78 yr old M, medical condition 78 year old male, with PMH of HTN, HLD, CAD s/p stents x2, BPH, PVD, UTIs, kidney stones, diastolic heart failure, and GERD Admitting Diagnosis UTI failed outpt tx A/P: #UTI-failed outpt tx -IVF-gentle hydration-monitor for fluid overload -Can DC in AM -IV rocephin dose x2. Sent home on Levaquin -Blood, urine cx pending -lactic 2.1, in AM -1.6 #BRIT -IVF -baseline 1.0 -monitor CMP #HTN #HLD #CAD s/p stent x2 -CHF, diastolic, chronic -c/w asa, procardia, metoprolol XL,statin -hypotension improved -on lasix 10mg po -daily weights -EKG NSR pronlonged QT interval -Echo unremarkable-nml LV function, Mild TR, no MR (01/03) #BPH -c/w flomax, avodart #GERD-stable Full Code FEN Fluids: PO intake adequate Electrolytes: replete as indicated Nutrition: low sodium Date of Discharge: 04/15/19 Minutes to complete discharge: 35 Discharge Summary Problems reviewed: Yes Reason For Visit: UTI Current Active Problems Hypotension (Acute) UTI (urinary tract infection) (Acute) Condition: Improved - Instructions Diet, Activity, Other Instructions: Resume activity as tolerated. Follow up with the referral to Urologist and Child Custody Evaluator on Tuesday. Patient to receive levofloxacin PO 750mg daily x 5 days starting Tuesday, . This will complete 7 days of Antibiotic treatment Referrals: Ish Chi MD [Staff Physician] - Veronika Jimenez MD [Staff Physician] - Disposition: HOME - Home Medications Comprehensive Discharge Medication List: Ambulatory Orders Cyanocobalamin (Vitamin B-12) [B-12] 1,000 mcg PO DAILY tablet 05/21/16 Multivitamin [Daily Vitamin Formula] 1 each PO DAILY tablet 05/21/16 Ascorbic Acid [Vitamin C -] 500 mg PO BID tablet 06/01/16 Aspirin [Aspirin EC] 81 mg PO DAILY 12/31/16 Nifedipine [Procardia Xl] 30 mg PO HS 12/31/16 Acetaminophen [Tylenol .Regular Strength -] 650 mg PO Q6H PRN tablet 02/10/18 Atorvastatin Ca [Lipitor] 40 mg PO HS 05/05/18 Vit C/E/Zn/Coppr/Lutein/Zeaxan [Preservision Areds 2 Softgel] 1 each PO BID Dutasteride [Avodart] 0.5 mg PO DAILY cap 12/28/18 Flomax - 0.4 mg PO BID 04/09/19 Lasix - 10 mg PO DAILY 04/09/19 Metoprolol Succinate [Toprol Xl -] 25 mg PO BID 04/09/19 Diclofenac Sodium/Misoprostol [Diclofenac-Misoprost 75-0.2 Tb] 1 each PO BID levoFLOXacin [Levaquin] 750 mg PO DAILY 5 Days #5 tab 04/15/19 This patient is new to me today: Yes Date on this admission: 04/15/19 Emergency Visit: Yes ED Registration Date: 04/14/19 Care time: The patient presented to the Emergency Department on the above date and was hospitalized for further evaluation of their emergent condition. Critical Care patient: No - Discharge Referral Referred to [facility] Med P.C.: No
--- NOTE | 2019-04-16 14:23 | EKG ---
Test Reason : Blood Pressure : / mmHG Vent. Rate : 087 BPM Atrial Rate : 074 BPM P-R Int : 000 ms QRS Dur : 104 ms QT Int : 530 ms P-R-T Axes : 000 -04 039 degrees QTc Int : 637 ms PROBABLE SINUS RHYTHM NONSPECIFIC T WAVE ABNORMALITY PROLONGED QT ABNORMAL ECG WHEN COMPARED WITH ECG OF 25-DEC-2018 12:26, LIKELY NO SIGNIFICANT CHANGES Confirmed by HERMILA WEAVER MD ([id number]) on 04/16/2019 2:23:16 PM Referred By: ALEX Confirmed By:HERMILA WEAVER MD
== END 2019-04-15 13:29 | disposition home or self-care (01) | DRG 690 ==
LOC: SUPCPDRO 19:33 → FER 19:33 → FM/S 21:41
PROVIDERS: ADMIT Internal Medicine; ATTEND Nurse Practitioner Acute Care
DX: N39.0 Urinary tract infection, site not specified (principal); N17.9 Acute kidney failure, unspecified; I50.32 Chronic diastolic (congestive) heart failure; I95.9 Hypotension, unspecified; I25.10 Atherosclerotic heart disease of native coronary artery without angina pectoris; I10 Essential (primary) hypertension; E78.5 Hyperlipidemia, unspecified; N40.0 Benign prostatic hyperplasia without lower urinary tract symptoms; K21.9 Gastro-esophageal reflux disease without esophagitis; I73.9 Peripheral vascular disease, unspecified; I45.81 Long QT syndrome; I11.0 Hypertensive heart disease with heart failure; N20.0 Calculus of kidney; Z95.5 Presence of coronary angioplasty implant and graft
CPT/HCPCS: 36415; 71045-TC-FY; 80053; 81003; 81015; 82550; 83605; 83735; 83880; 84484; 85025; 85027; 87040; 87086; 87186; 93005; 99285-25; J1644; J7030

== ENCOUNTER 2019-07-29 20:27 | Emergency (ER) | payer OTHER ==
[2019-07-29 20:50] VITALS: BP 127/67; PULSE 100; TEMP 98.4; BMI 33.2
[2019-07-29] MEDS ORDERED: CEFTRIAXONE 1,000 MG in DEXTROSE 5%-WATER - 50 ML IVPB ONE (21:11)
[2019-07-29 21:15] LABS: BASO % 0.1 % (0-2.0); EOS % 0.5 % (0-4.5); HEMATOCRIT 38.9 % (35.4-49); HEMOGLOBIN 13.1 GM/dl (11.7-16.9); LYMPH % 7.6 % (8-40); MCH 31.9 pg (25.7-33.7); MCHC 33.8 g/dl (32.0-35.9); MEAN CELL VOLUME 94.5 fl (80-96); MEAN PLT VOLUME 9.4 fl (7.5-11.1); MONO % 11.6 % (3.8-10.2); NEUT % 80.2 % (42.8-82.8); PLATELET COUNT 154 K/MM3 (134-434); RBC 4.12 M/mm3 (4.00-5.60); RDW 14.4 % (11.9-15.9); WHITE BLOOD COUNT 14.4 K/mm3 (4.0-10.8)
[2019-07-29 21:23] LABS: ALBUMIN 3.6 g/dl (3.4-5.0); BILIRUBIN,TOTAL 1.2 mg/dl (0.2-1); CALCIUM 8.6 mg/dl (8.5-10); CREATININE 1.5 mg/dl (0.55-1.3); POTASSIUM 3.8 mmol/L (3.5-5.1); TOT PROT 6.7 g/dl (6.4-8.2)
[2019-07-29] MEDS ORDERED: cefTRIAXone SODIUM 1 GM VIAL ONE (21:31)
--- NOTE | 2019-07-29 22:22 | PDOC ---
Documentation entered by Gabriel Quintanilla SCRIBE, acting as scribe for Adore Vega MD. Adore Vega MD: This documentation has been prepared by the Dwight baez Aiswarya, SCRIBE, under my direction and personally reviewed by me in its entirety. I confirm that the documentation accurately reflects all work, treatment, procedures, and medical decision making performed by me. History of Present Illness - General Chief Complaint: Urinary Problem Stated Complaint: URINARY SYMPTOMS History Source: Patient Exam Limitations: No Limitations - History of Present Illness Initial Comments: 07/29/19 21:22 The patient is a 78 year old male, with a significant PMH of rectal bleeding 2013/ GERD, multiple stone, BPH, kidney stones, HTN,HLD who presents to the emergency department with a possible urinary tract infection. The patient states he endorses associated symptoms of shortness of breath, leg pain and chronic back pain. He reports pain may be secondary to kidney stones. The patient denies chest pain, headache and dizziness.Denies fever, chills, nausea, vomit, diarrhea and constipation.Denies dysuria, frequency, urgency and hematuria. PAST MEDICAL HISTORY: rectal bleeding 2013/ GERD, multiple stone, BPH, HTN,HLD PAST SURGICAL HISTORY: hernia repair 25 years ago, 2017 cardiac x2 stent, kyphoplasty x2 2012/ partial right knee 2016 FAMILY HISTORY: no pertinent history SOCIAL HISTORY: Pt lives with family and is employed. MEDICATIONS: reviewed ALLERGIES: As per nursing notes Adult ROS General: No fevers or chills, no weakness, no weight loss HEENT: No change in vision. No sore throat,. No ear pain CardioVascular: +sob. No chest pain Respiratory:No cough, or wheezing. Gastrointestinal: no nausea, vomiting, diarrhea or constipation, No rectal bleeding Genitourinary: No dysuria, hematuria, or frequency Psychiatric: nor depression Skin: No rashes or easy bruising Endocrine: no increased thirst or abnormal weight change Allergic: no skin or latex allergy All other systems reviewed and normal Adult Exam: General: Well-nourished well-developed individual, no acute distress Chest: Nontender to palpation Cardiac: S1-S2 normal, regular rate and rhythm, no murmurs rubs or gallops Respiratory: Lungs clear to auscultation bilateral Abdomen: Soft, nondistended, normal bowel sounds, nontender to palpation diffusely Extremities: Warm, dry, no cyanosis, clubbing, or edema Skin: No rashes Neuro: Alert and oriented x3, nonfocal exam, grossly intact. Psych: Normal mood and affect 07/29/19 21:55 Assessment and plan: This is a 78-year-old male with chronic urinary tract infections. Patient comes in complaining of generalized weakness and not feeling well with a dirty cloudy foul-smelling urine. Patient denies any abdominal pain nausea vomiting diarrhea back pain or flank pain. Patient also states that he has some mild increase in his shortness of breath. Work-up initiated including CBC, comp, urine cultures, urinalysis and cardiac enzymes and EKG. Work-up was remarkable for a urinary tract infection with a mild elevated white count otherwise EKG was unchanged from prior and cardiac enzymes were negative. Patient's chest x-ray read by me was also negative Patient discharged home with prescription for Bactrim will follow-up with his primary care doctor 07/29/19 22:20 Past History - Past Medical History Allergies/Adverse Reactions: Allergies Allergy/AdvReac Type Severity Reaction Status Date / Time No Known Drug Allergies Allergy Verified 07/29/19 20:29 Home Medications: Ambulatory Orders Cyanocobalamin (Vitamin B-12) [B-12] 1,000 mcg PO DAILY tablet 05/21/16 Multivitamin [Daily Vitamin Formula] 1 each PO DAILY tablet 05/21/16 Ascorbic Acid [Vitamin C -] 500 mg PO BID tablet 06/01/16 Aspirin [Aspirin EC] 81 mg PO DAILY 12/31/16 Nifedipine [Procardia Xl] 30 mg PO HS 12/31/16 Acetaminophen [Tylenol .Regular Strength -] 650 mg PO Q6H PRN tablet 02/10/18 Atorvastatin Ca [Lipitor] 40 mg PO HS 05/05/18 Vit C/E/Zn/Coppr/Lutein/Zeaxan [Preservision Areds 2 Softgel] 1 each PO BID Dutasteride [Avodart] 0.5 mg PO DAILY cap 12/28/18 Flomax - 0.4 mg PO BID 04/09/19 Lasix - 20 mg PO DAILY 04/09/19 Metoprolol Succinate [Toprol Xl -] 25 mg PO BID 04/09/19 Diclofenac Sodium/Misoprostol [Diclofenac-Misoprost 75-0.2 Tb] 1 each PO BID Sulfamethoxazole/Trimethoprim [Bactrim DS -] 1 tab PO BID #20 tablet 07/29/19 Anemia: No Asthma: No Cancer: No Cardiac Disorders: No CVA: No COPD: No CHF: No Dementia: No Diabetes: No GI Disorders: Yes (RECTAL BLEEDING 2012/GERD) Disorders: Yes (multiple stones/BPH) HTN: Yes Hypercholesterolemia: Yes Kidney Stones: Yes Liver Disease: No Seizures: No Thyroid Disease: No - Surgical History Abdominal Surgery: Yes (HERNIA REPAIR 25 YRS AGO) Appendectomy: No Cardiac Surgery: Yes (2017 X2 STENT) Cholecystectomy: No Lung Surgery: No Neurologic Surgery: No Orthopedic Surgery: Yes (KYPHOPLASTY x2 2012/Partial Rt Knee 2015) - Psycho Social/Smoking Cessation Hx Smoking Status: No Smoking History: Never smoked Have you smoked in the past 12 months: No Number of Cigarettes Smoked Daily: 0 Hx Alcohol Use: No Drug/Substance Use Hx: No Substance Use Type: None Hx Substance Use Treatment: No *Physical Exam - Vital Signs Last Vital Signs Temp Pulse Resp BP Pulse Ox 98.4 F 100 H 18 127/67 97 07/29/19 20:31 07/29/19 20:31 07/29/19 20:31 07/29/19 20:31 07/29/19 20:31 ED Treatment Course - LABORATORY CBC & Chemistry Diagram: 07/29/19 20:50 07/29/19 20:50 - ADDITIONAL ORDERS Additional order review: Laboratory Results 07/29/19 07/29/19 07/29/19 20:50 20:50 20:50 Sodium Potassium Chloride Carbon Dioxide Anion Gap BUN Creatinine Est GFR (CKD-EPI)AfAm Est GFR (CKD-EPI)NonAf Random Glucose Calcium Total Bilirubin AST ALT Alkaline Phosphatase Creatine Kinase 51 Troponin I < 0.03 Total Protein Albumin Urine Color Yellow Urine Appearance Cloudy Urine pH 5.0 Urine Protein 2+ H Urine Glucose (UA) Negative Urine Ketones Negative Urine Blood 3+ H Urine Nitrite Positive Urine Bilirubin Negative Urine Urobilinogen 0.2 Ur Leukocyte Esterase 2+ Urine RBC 20-40 Urine WBC >100 Urine Bacteria Moderate 07/29/19 20:50 Sodium 140 Potassium 3.8 Chloride 111 H Carbon Dioxide 21 Anion Gap 8 BUN 31.0 H Creatinine 1.5 H Est GFR (CKD-EPI)AfAm 51.31 Est GFR (CKD-EPI)NonAf 44.27 Random Glucose 125 H Calcium 8.6 Total Bilirubin 1.2 H AST 20 ALT 22 Alkaline Phosphatase 79 Creatine Kinase Troponin I Total Protein 6.7 Albumin 3.6 Urine Color Urine Appearance Urine pH Urine Protein Urine Glucose (UA) Urine Ketones Urine Blood Urine Nitrite Urine Bilirubin Urine Urobilinogen Ur Leukocyte Esterase Urine RBC Urine WBC Urine Bacteria 07/29/19 20:50 RBC 4.12 MCV 94.5 MCHC 33.8 RDW 14.4 MPV 9.4 Neutrophils % 80.2 D Lymphocytes % 7.6 L D Monocytes % 11.6 H Eosinophils % 0.5 Basophils % 0.1 - RADIOLOGY Radiology Studies Ordered: Category Date Time Status CHEST X-RAY PORTABLE* [RAD] Stat Radiology 07/29/19 21:16 Taken - Medications Given in the ED: ED Medications Discontinued Medications Generic Name Dose Route Start Last Admin Trade Name Freq PRN Reason Stop Dose Admin Ceftriaxone Sodium 1,000 mg/ 50 mls @ 100 mls/hr 07/29/19 21:11 07/29/19 21: 35 Dextrose IVPB 07/29/19 21:40 100 mls/hr ONCE ONE Administration Discharge - Discharge Information Problems reviewed: Yes Clinical Impression/Diagnosis: Urinary tract infection Condition: Stable Disposition: HOME - Admission No - Additional Discharge Information Prescriptions: Sulfamethoxazole/Trimethoprim [Bactrim DS -] 1 tab PO BID #20 tablet - Follow up/Referral Referrals: Ramy Lange MD [Primary Care Provider] - - Patient Discharge Instructions Additional Instructions: Take Bactrim 1 tablet twice a day for the urinary tract infection Tylenol or Motrin as needed for pain or fevers Return to the emergency department immediately with ANY new, persistent or worsening symptoms. Continue any medications as previously prescribed by your physician. You should follow up with your primary doctor as soon as possible regarding today's emergency department visit. . Please make sure your doctor reviews the results of your emergency evaluation. Thank you for coming to the Emergency Department today for your care. It was a pleasure to see you today. Please note that your evaluation is INCOMPLETE until you follow-up with your doctor. - Post Discharge Activity
--- NOTE | 2019-07-30 09:45 | EKG ---
Test Reason : Blood Pressure : / mmHG Vent. Rate : 085 BPM Atrial Rate : 085 BPM P-R Int : 296 ms QRS Dur : 106 ms QT Int : 388 ms P-R-T Axes : 038 -10 035 degrees QTc Int : 461 ms SINUS RHYTHM WITH 1ST DEGREE A-V BLOCK WITH FREQUENT PREMATURE VENTRICULAR COMPLEXES INFERIOR INFARCT , AGE UNDETERMINED ABNORMAL ECG WHEN COMPARED WITH ECG OF 14-APR-2019 19:57, LIKELY NO SIGNIFICANT CHANGES PVCS ARE SEEN Confirmed by MEG PEREZ, HERMILA ([id number]) on 07/30/2019 9:45:39 AM Referred By: Confirmed By:HERMILA WEAVER MD
== END 2019-07-29 22:38 | disposition home or self-care (01) ==
LOC: FER 20:27
DX: E78.00 Pure hypercholesterolemia, unspecified (principal); N40.0 Benign prostatic hyperplasia without lower urinary tract symptoms; Z95.5 Presence of coronary angioplasty implant and graft
CPT/HCPCS: 36415; 71045-TC-FY; 80053; 81003; 81015; 82550; 84484; 85025; 87086; 87186; 93005; 99282-25